=== PATIENT | female | born 1955 | race African-American/Black ===

== ENCOUNTER → 2017-03-07 | Outpatient (CLI) | payer OTHER ==
[2017-03-07 11:50] LABS: HEMATOCRIT 46.4 % (36.0-47.0); HEMOGLOBIN 15.2 g/dL (12.0-15.5); HGB HCT DIFFERENCE -0.8; MEAN CORPUSCULAR HEMOGLOBIN 30.2 pg (27.0-33.4); MEAN CORPUSCULAR HGB CONC 32.9 g/dL (32.0-36.0); MEAN CORPUSCULAR VOLUME 92 fl (80-97); RED BLOOD COUNT 5.05 10^6/uL (3.72-5.28); RED CELL DISTRIBUTION WIDTH 13.3 % (11.5-14.0); WHITE BLOOD COUNT 4.8 10^3/uL (4.0-10.5)
[2017-03-07 12:18] LABS: ALANINE AMINOTRANSFERASE 14 U/L (9-52); ALKALINE PHOSPHATASE 93 U/L (38-126); ANION GAP 11 (5-19); ASPARTATE AMINO TRANSFERASE 17 U/L (14-36); BILIRUBIN,DIRECT 0.3 mg/dL (0.0-0.4); BILIRUBIN,TOTAL 0.5 mg/dL (0.2-1.3); BLOOD UREA NITROGEN 11 mg/dL (7-20); CALCIUM 10.1 mg/dL (8.4-10.2); CARBON DIOXIDE 24 mmol/L (22-30); CHLORIDE 106 mmol/L (98-107); CREATININE RESULT 0.73 mg/dL (0.52-1.25); GLUCOSE 108 mg/dL (75-110); POTASSIUM 4.7 mmol/L (3.6-5.0); SODIUM 141.3 mmol/L (137-145)
--- NOTE | 2017-03-07 16:19 | EKG REPORT ---
SEVERITY:- BORDERLINE ECG - SINUS RHYTHM LOW VOLTAGE IN FRONTAL LEADS CONSIDER INFERIOR INFARCT : Confirmed by: Laina Rosario MD 07-Mar-2017 16:18:13
[2017-03-10 12:40] LABS: EPSTEIN BARR EARLY AG IGG AB <9.0 U/mL (0.0-8.9)
== END ==
LOC: OD 10:30
PROVIDERS: ATTEND Obstetrics & Gynecology
DX: R53.83 Other fatigue (principal); R63.4 Abnormal weight loss; Z72.0 Tobacco use; J44.9 Chronic obstructive pulmonary disease, unspecified; Z51.81 Encounter for therapeutic drug level monitoring
CPT/HCPCS: 36415; 80053; 84443; 85027; 86256; 86663; 86664; 86665; 93005; 93010

== ENCOUNTER → 2017-03-26 | Outpatient (CLI) | payer OTHER | LOC: OD 15:25 | PROVIDERS: ATTEND Obstetrics & Gynecology | DX: R53.83 Other fatigue (principal); R94.31 Abnormal electrocardiogram [ECG] [EKG]; I25.2 Old myocardial infarction | CPT/HCPCS: 36415; 83880 ==

== ENCOUNTER 2017-04-23 20:38 | Emergency (ER) | payer OTHER ==
[2017-04-23] MEDS ORDERED: IPRATROPIUM/ALBUTEROL 0.5-2.5 MG/3 ML AMPUL NEB ONE (20:53)
--- NOTE | 2017-04-23 20:58 | ER Document Report ---
ED Respiratory Problem - General Chief Complaint: Shortness Of Breath Stated Complaint: DIFFICULTY BREATHING Time Seen by Provider: 04/23/17 20:48 Notes: The patient is a 61-year-old female, past medical history COPD, asthma, presents with several hours of worsening shortness of breath that started after she exited a store today. She tried her albuterol inhaler without much relief of her symptoms. She called 911 and received 125 mg Solu-Medrol, a DuoNeb and an albuterol inhaler with some relief of her symptoms. She is still short of breath on arrival to the emergency room. She denies leg swelling, nausea, vomiting, chest pain, fevers, back pain, headache or abdominal pain. TRAVEL OUTSIDE OF THE [place] IN LAST 30 DAYS: No - Related Data Allergies/Adverse Reactions: No Known Allergies Allergy (Verified 02/17/14 08:27) Past Medical History - General Information source: Patient - Social History Smoking Status: Current Every Day Smoker Family History: Reviewed & Not Pertinent - Past Medical History Cardiac Medical History: Reports: Hx Atrial Fibrillation Pulmonary Medical History: Reports: Hx Asthma, Hx Bronchitis, Hx COPD, Hx Pneumonia GI Medical History: Reports: Hx Gastroesophageal Reflux Disease - resolved after fundoplication Psychiatric Medical History: Reports: Hx Depression Past Surgical History: Reports: Hx Bowel Surgery - Megan fundoplication, Hx Gynecologic Surgery - fibroid removal - Immunizations Hx Diphtheria, Pertussis, Tetanus Vaccination: Yes Review of Systems - Review of Systems Notes: REVIEW OF SYSTEMS: CONSTITUTIONAL: -fevers, -chills EENT: -eye pain, -difficulty swallowing, -nasal congestion CARDIOVASCULAR:-chest pain, -syncope. RESPIRATORY: +cough, +SOB GASTROINTESTINAL: -abdominal pain, - nausea, -vomiting, -diarrhea GENITOURINARY: -dysuria, -hematuria MUSCULOSKELETAL: -back pain, -neck pain SKIN: -rash or skin lesions. HEMATOLOGIC: -easy bruising or bleeding. LYMPHATIC: -swollen, enlarged glands. NEUROLOGICAL: -altered mental status or loss of consciousness, -headache, - neurologic symptoms PSYCHIATRIC: -anxiety, -depression. ALL OTHER SYSTEMS REVIEWED AND NEGATIVE. Physical Exam - Vital signs Vitals: Resp Pulse Ox 24 H 99 04/23/17 20:40 04/23/17 20:40 - Notes Notes: PHYSICAL EXAMINATION: GENERAL: Well-appearing, well-nourished and in no acute distress. HEAD: Atraumatic, normocephalic. EYES: Pupils equal round and reactive to light, extraocular movements intact, sclera anicteric, conjunctiva are normal. ENT: nares patent, oropharynx clear without exudates. Moist mucous membranes. NECK: Normal range of motion, supple without lymphadenopathy LUNGS: Bilateral wheezing, tachypnea HEART: Tachycardia, regular rhythm ABDOMEN: Soft, nontender, normoactive bowel sounds. No guarding, no rebound. No masses appreciated. EXTREMITIES: Normal range of motion, no pitting or edema. No cyanosis. NEUROLOGICAL: Cranial nerves grossly intact. Normal speech, normal gait. Normal sensory and motor exams. PSYCH: Normal mood, normal affect. SKIN: Warm, Dry, normal turgor, no rashes or lesions noted. Tachypnea, Course - Re-evaluation Re-evalutation: Patient with COPD exacerbation. After DuoNeb and steroids, patient feels much better. CTA ordered due to tachycardia and slight hypoxia. It did not show any evidence of pulmonary embolism. Patient knows about her thyroid nodule/ mass and will talk to her primary care physician about further evaluation and treatment. Patient ambulating around ER with oxygen saturation at 88%. She does not wear oxygen at home. She does not feel short of breath when she ambulates. The 88% may be normal for her due to her long-standing emphysema. Offered patient admission for further evaluation and treatment, but she would like to be discharged home with follow-up at her primary care physician tomorrow. She understands risks of leaving, including heart attack, or worsening respiratory failure. She is competent to make her own decisions. She has albuterol nebules at home, but is requesting a refill of her albuterol inhaler. We will also provide her with 5 more days of prednisone and instructed patient to return immediately to the emergency room if she has any worsening shortness of breath or any other concerns. - Vital Signs Vital signs: Temp Pulse Resp BP Pulse Ox 97.6 F 113 H 20 130/87 H 88 L 04/23/17 20:50 04/23/17 20:50 04/24/17 01:30 04/24/17 01:30 04/24/17 01:30 - Laboratory Result Diagrams: 04/23/17 21:05 04/23/17 22:53 Laboratory results interpreted by me: 04/23/17 04/23/17 21:05 22:53 Hgb 15.8 H Seg Neutrophils % 37.2 L Lymphocytes % 47.7 H Glucose 134 H - Diagnostic Test Radiology reviewed: Image reviewed, Reports reviewed Radiology results interpreted by me: CXR: NAD - EKG Interpretation by Me EKG shows normal: Sinus rhythm Rate: Tachycardia [place]/QRS: IVCD When compared to previous EKG there are: No significant change Discharge - Discharge Clinical Impression: COPD exacerbation Condition: Stable Disposition: AGAINST MEDICAL ADVICE Additional Instructions: UPPER RESPIRATORY ILLNESS: You have a viral infection of the respiratory passages -- a "cold." This common infection causes nasal congestion, drainage, and often sore throat and cough. It is highly contagious. The disease usually lasts about 10 to 14 days. There is no "cure" for the viral infection -- it must run its course. If there is a complication, such as bacterial infection in the nose, sinuses, middle ear, or bronchial tubes, antibiotics may be required. The antibiotics won't affect the virus. Drink plenty of fluids. A humidifier may help. An expectorant medication or decongestant may make you more comfortable. Use acetaminophen or ibuprofen for fever or aches. See the doctor if fever persists over two days, if there is any significant worsening of your symptoms, or if you simply fail to improve as expected. BRONCHOSPASM: You have tightness in the bronchial tubes, called bronchospasm. This often occurs with bronchial infections. Allergies, inhaled chemicals, and polluted or cold air can also provoke bronchospasm. It's more likely in patients with asthma in the family. Emergency treatment of bronchospasm may include adrenaline shots or bronchodilator aerosol. You may feel lightheaded and have a rapid pulse for an hour or two. Rest and get plenty of fluids. At home, we'll treat you with a bronchodilator inhaler. Antibiotics and corticosteroids may be required for some patients. Until you recover, avoid chemical fumes, dusts, pollens, and exercising in very cold or dry air. If you smoke, stop now!! If you develop a fever, increased wheezing, chest pain, or severe shortness of breath, you should contact the doctor immediately. INHALED BRONCHODILATORS: You have received a treatment of and/or prescription for an inhaled bronchodilator -- a medication which stimulates the airways in the lung to dilate. This improves the flow of air in asthma, bronchitis, and emphysema. These medicines have some similarity to adrenaline, and can cause similar side effects: shakiness, racing heart, and a sense of nervousness. These side effects decrease with time. Contact your doctor if these side effects are severe. Do not over-use the medicine. Too-frequent use of the inhaler may make it ineffective. Call your doctor if the inhaler is not controlling your symptoms at the prescribed doses. STEROID MEDICATION: You have been given an injection of or oral medicine of the cortisone/ steroid class. This medication is used to control inflammation or allergy. Horace t is usually only given for a short period of time, until the acute process subsides. There are usually no side effects from short-term use of cortisone-like medications. Some persons feel an increased sense of well-being and are not sleepy at bedtime. Long-term use of cortisone medications is best avoided, unless required for a severe condition. If your condition does not remit, or relapses after the course of corticosteroid medication, you should consult your physician. USE OF ACETAMINOPHEN (Tylenol): Acetaminophen may be taken for pain relief or fever control. It's much safer than aspirin, offering a wider range of "safe" dosages. It is safe during . Some brand names are Tylenol, Panadol, Datril, Anacin 3, Tempra, and Liquiprin. Acetaminophen can be repeated every four hours. The following are maximum recommended dosages: >89 pounds or adults 650 mg to 900 mg Acetaminophen can be repeated every four hours. Maximum dose not to exceed 4000 mg a day. SMOKING: If you smoke, you should stop smoking. The tar and chemicals in cigarette smoke are harmful. Smoking has been shown to cause: emphysema chronic bronchitis lung cancer mouth and throat cancer stomach and pancreas cancer premature aging defects In addition, smoking increases ear and lung infections in children of smokers. FOLLOW-UP CARE: If you have been referred to a physician for follow-up care, call the physician s office for an appointment as you were instructed or within the next two days. If you experience worsening or a significant change in your symptoms, notify the physician immediately or return to the Emergency Department at any time for re-evaluation. Prescriptions: Albuterol Sulfate [Proair HFA Inhalation Aerosol 8.5 gm MDI] 2 puff IH Q4H PRN # 1 mdi PRN Reason: Prednisone [Deltasone 20 mg Tablet] 3 tab PO DAILY 5 Days Forms: Return to Work
--- NOTE | 2017-04-23 21:28 | RADIOLOGY REPORT (SQ) ---
EXAM DESCRIPTION: CHEST SINGLE VIEW COMPLETED DATE/TIME: 04/23/2017 9:13 pm REASON FOR STUDY: SOB COMPARISON: 06/30/2016 EXAM PARAMETERS: NUMBER OF VIEWS: One view. TECHNIQUE: Single frontal radiographic view of the chest acquired. RADIATION DOSE: NA LIMITATIONS: None. FINDINGS: LUNGS AND PLEURA: No opacities, masses or pneumothorax. No pleural effusion. MEDIASTINUM AND HILAR STRUCTURES: No masses. Contour normal. HEART AND VASCULAR STRUCTURES: Heart normal in size. Normal vasculature. BONES: No acute findings. HARDWARE: None in the chest. OTHER: No other significant finding. IMPRESSION: NO ACUTE RADIOGRAPHIC FINDING IN THE CHEST. TECHNICAL DOCUMENTATION: JOB ID: [id number]
[2017-04-23 21:31] LABS: ABSOLUTE BASOPHILS # (AUTO) 0.1 10^3/uL (0.0-0.2); ABSOLUTE EOSINOPHILS # (AUTO) 0.2 10^3/uL (0.0-0.6); ABSOLUTE LYMPHOCYTES (AUTO) 2.9 10^3/uL (0.5-4.7); ABSOLUTE MONOCYTES (AUTO) 0.6 10^3/uL (0.1-1.4); ABSOLUTE NEUT (AUTO) 2.2 10^3/uL (1.7-8.2); BASOPHILS % (AUTO) 1.4 % (0-2); EOSINOPHILS % (AUTO) 3.7 % (0-6); HEMOGLOBIN 15.8 g/dL (12.0-15.5); HGB HCT DIFFERENCE 0.4; LYMPHOCYTES % (AUTO) 47.7 % (13-45); MEAN CORPUSCULAR HEMOGLOBIN 30.8 pg (27.0-33.4); MEAN CORPUSCULAR HGB CONC 33.6 g/dL (32.0-36.0); MEAN CORPUSCULAR VOLUME 92 fl (80-97); RED BLOOD COUNT 5.13 10^6/uL (3.72-5.28); RED CELL DISTRIBUTION WIDTH 13.6 % (11.5-14.0); SEGMENTED NEUTROPHILS % (AUTO) 37.2 % (42-78)
[2017-04-23 22:21] LABS: VENOUS BLOOD BASE EXCESS 1.6 mmol/L; VENOUS BLOOD HCO3 27.2 mmol/L (20-32); VENOUS BLOOD PCO2 46.5 mmHg (35-63); VENOUS BLOOD PH 7.39 (7.30-7.42)
[2017-04-23] MEDS ORDERED: NORMAL SALINE 1000 ML 1,000 ML IV ONE (22:23)
[2017-04-23 23:31] LABS: ALANINE AMINOTRANSFERASE 21 U/L (9-52); ALKALINE PHOSPHATASE 105 U/L (38-126); ANION GAP 11 (5-19); ASPARTATE AMINO TRANSFERASE 15 U/L (14-36); BILIRUBIN,DIRECT 0.3 mg/dL (0.0-0.4); BILIRUBIN,TOTAL 0.3 mg/dL (0.2-1.3); BLOOD UREA NITROGEN 10 mg/dL (7-20); CALCIUM 9.9 mg/dL (8.4-10.2); CARBON DIOXIDE 24 mmol/L (22-30); CHLORIDE 107 mmol/L (98-107); CREATINE KINASE 90 U/L (30-135); CREATININE RESULT 0.78 mg/dL (0.52-1.25); GLUCOSE 134 mg/dL (75-110); LIPASE 46.7 U/L (23-300); SODIUM 142.3 mmol/L (137-145); TOTAL PROTEIN 7.3 g/dL (6.3-8.2)
[2017-04-23 23:45] LABS: TROPONIN I < 0.012 ng/mL
--- NOTE | 2017-04-24 00:49 | RADIOLOGY REPORT (SQ) ---
EXAM DESCRIPTION: CTA CHEST COMPLETED DATE/TIME: 04/24/2017 12:31 am REASON FOR STUDY: SOB, tachycardia, abnormal EKG COMPARISON: Chest x-ray 04/23/2017, CT chest 03/24/2015. TECHNIQUE: CT scan of the chest performed using helical scanning technique with dynamic intravenous contrast injection. Images reviewed with lung, soft tissue and bone windows. Reconstructed coronal and sagittal MPR images reviewed. Additional 3 dimensional post-processing performed to develop Maximal Intensity Projection images (TN P). All images stored on PACS. All CT scanners at this facility use dose modulation, iterative reconstruction, and/or weight based d osing when appropriate to reduce radiation dose to as low as reasonably achievable (ALARA). [facility]: Dose Right [facility]: CareDose [facility]: Dose Right [facility]: Teradose 4D [facility]: sendwithus CONTRAST TYPE AND DOSE: contrast/concentration: Isovue 370.00 mg/ml; Total Contrast Delivered: 100.0 ml; Total Saline Delivered: 45.0 ml RENAL FUNCTION: Creatinine 0.78 RADIATION DOSE: Up-to-date CT equipment and radiation dose reduction techniques were employed. CTDIv ol: 14.3 mGy. DLP: 495 mGy-cm. . LIMITATIONS: There is motion artifact. FINDINGS: LUNGS AND PLEURA: Emphysematous changes are noted. No consolidation, pleural effusion pne umothorax. AORTA AND GREAT VESSELS: No thoracic aortic aneurysm or dissection. HEART: No pericardial effusion. PULMONARY ARTERIES: No emboli visualized in the main pulmonary arteries or the segmental branches. HILAR AND MEDIASTINAL STRUCTURES: No identified masses or abnormal nodes. HARDWARE: None in the chest. UPPER ABDOMEN: Surgical clips at the GE junction. No acute findings. Limited exam. THYROID AND OTHER SOFT TISSUES: There is a 1.4 x 0.8 cm hypodense nodule at the right thyroid lobe. BONES: No acute osseous findings. 3D MIPS: Confirm above findings. IMPRESSION: No CT evidence for pulmonary emboli. Emphysema. 1.4 x 0.8 cm hypodense nodule at the right thyroid lobe. This can be better evaluated with dedicated thyroid ultrasound. TECHNICAL DOCUMENTATION: JOB ID: [id number] [facility] Quality ID # [id number]: Final reports with documentation of one or more dose reduction techniques (e.g., Au tomated exposure control, adjustment of the mA and/or kV according to patient size, use of iterative reconstruction technique) 2010 [employer]- All Rights Reserved
[2017-04-24] MEDS ORDERED: ALBUTEROL SULFATE 0.083% NEB 2.5 MG/3 ML AMPUL NEB ONE (01:15)
[2017-04-24 01:57] VITALS: BP 130/87
--- NOTE | 2017-04-24 12:48 | EKG REPORT ---
SEVERITY:- ABNORMAL ECG - SINUS OR ECTOPIC ATRIAL TACHYCARDIA NONSPECIFIC IVCD WITH LAD INFERIOR INFARCT, OLD LATERAL INFARCT, AGE INDETERMINATE ABNRM R PROG, CONSIDER ASMI OR LEAD PLACEMENT : Confirmed by: Laina Rosario MD 24-Apr-2017 12:47:00
== END 2017-04-24 01:58 | disposition left against medical advice (07) ==
LOC: ER 20:38
DX: J44.1 Chronic obstructive pulmonary disease with (acute) exacerbation (principal); R00.0 Tachycardia, unspecified; R09.02 Hypoxemia; I45.9 Conduction disorder, unspecified; E04.1 Nontoxic single thyroid nodule; R06.02 Shortness of breath; R05 Cough; F17.200 Nicotine dependence, unspecified, uncomplicated; Z87.01 Personal history of pneumonia (recurrent)
CPT/HCPCS: 93005; 99285; 36415; 82550; 83690; 85025; 80053; 84484; 82803; 83605; 83880; 71010; 71275; 93010; J7030; J7620

== ENCOUNTER → 2017-05-07 | Outpatient (CLI) | payer OTHER ==
--- NOTE | 2017-05-07 16:17 | XCELERA REPORT ---
[address] [address] Lower Extremity Arterial Evaluation Name: LUDWIN LIPSCOMB Age: 61 yrs Gender: Female : 1955 Patient Status: Outpatient Patient Location: Study Date: 05/07/2017 03:19 PM Procedure: A color flow and duplex scan of the lower extremity arteries was performed bilaterally with velocity and waveform anaylsis. Ankle brachial indicies performed. 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 0 % stenosis noted. Ankle Brachial index is 1.04. Left Side Arterial Evaluation Normal velocity and triphasic waveforms noted from the Common Femoral artery to the infregeniculate vessels. 0 % stenosis noted. Ankle Brachial index is 1.06. Interpretation Summary No hemodynamically significant lesions in the bilateral lower extremities, on duplex imaging, at rest. : DANIELLE ELIZABETH > Chung Fajardo
== END ==
LOC: SP 15:02
PROVIDERS: ATTEND Internal Medicine Cardiovascular Disease
DX: I73.9 Peripheral vascular disease, unspecified (principal)
CPT/HCPCS: 93925

== ENCOUNTER → 2017-05-07 | Outpatient (CLI) | payer OTHER ==
[2017-05-07 12:33] LABS: ABSOLUTE BASOPHILS # (AUTO) 0.1 10^3/uL (0.0-0.2); ABSOLUTE EOSINOPHILS # (AUTO) 0.2 10^3/uL (0.0-0.6); ABSOLUTE LYMPHOCYTES (AUTO) 1.9 10^3/uL (0.5-4.7); ABSOLUTE MONOCYTES (AUTO) 0.5 10^3/uL (0.1-1.4); ABSOLUTE NEUT (AUTO) 2.5 10^3/uL (1.7-8.2); BASOPHILS % (AUTO) 1.1 % (0-2); EOSINOPHILS % (AUTO) 3.8 % (0-6); HEMATOCRIT 45.1 % (36.0-47.0); HEMOGLOBIN 15.2 g/dL (12.0-15.5); HGB HCT DIFFERENCE 0.5; LYMPHOCYTES % (AUTO) 36.7 % (13-45); MEAN CORPUSCULAR HGB CONC 33.8 g/dL (32.0-36.0); MEAN CORPUSCULAR VOLUME 92 fl (80-97); MONOCYTES % (AUTO) 9.1 % (3-13); RED CELL DISTRIBUTION WIDTH 13.5 % (11.5-14.0); SEGMENTED NEUTROPHILS % (AUTO) 49.3 % (42-78); WHITE BLOOD COUNT 5.1 10^3/uL (4.0-10.5)
[2017-05-07 13:06] LABS: ALANINE AMINOTRANSFERASE 16 U/L (9-52); ALBUMIN 4.1 g/dL (3.5-5.0); ALKALINE PHOSPHATASE 93 U/L (38-126); ANION GAP 11 (5-19); ASPARTATE AMINO TRANSFERASE 18 U/L (14-36); BILIRUBIN,DIRECT 0.3 mg/dL (0.0-0.4); BILIRUBIN,TOTAL 0.5 mg/dL (0.2-1.3); BLOOD UREA NITROGEN 9 mg/dL (7-20); CALCIUM 9.9 mg/dL (8.4-10.2); CARBON DIOXIDE 25 mmol/L (22-30); CHLORIDE 107 mmol/L (98-107); GLUCOSE 92 mg/dL (75-110); POTASSIUM 4.6 mmol/L (3.6-5.0); TOTAL PROTEIN 7.3 g/dL (6.3-8.2)
[2017-05-07 13:24] LABS: FREE T3 4.46 pg/mL (2.77-5.27)
[2017-05-07 13:37] LABS: CARCINOEMBRYONIC ANTIGEN 4.8 ng/mL (<3.0)
[2017-05-07 13:38] LABS: THYROID STIMULATING HORMONE 0.39 uIU/mL (0.47-4.68)
== END ==
LOC: OD 11:22
PROVIDERS: ATTEND Surgery
DX: D12.6 Benign neoplasm of colon, unspecified (principal); E04.1 Nontoxic single thyroid nodule; R63.4 Abnormal weight loss
CPT/HCPCS: 36415; 80053; 82378; 84439; 84443; 84481; 85025

== ENCOUNTER → 2017-05-09 | Outpatient (CLI) | payer OTHER ==
--- NOTE | 2017-05-09 18:25 | RADIOLOGY REPORT (SQ) ---
EXAM DESCRIPTION: U/S THYROID/SFT TISS HD NECK COMPLETED DATE/TIME: 05/09/2017 5:20 pm REASON FOR STUDY: NONTOXIC SINGLE THYROID NODULE, ABNORMAL WEIGHT LOSS E04.1 NONTOXIC SINGLE THYROI D NODULE COMPARISON: None. TECHNIQUE: Dynamic and static biswas-scale images acquired of the thyroid gland. Selected additional c olor/power Doppler images recorded. All images stored to PACS. LIMITATIONS: None. FINDINGS: RIGHT LOBE: Normal size, 3.9 x 1.9 x 2.5 cm. Homogeneous echotexture. There is complex n odule in the midportion of the right lobe measuring 11 x 9 x 11 mm. Multiple smaller nodules are pre sent in the right lobe. LEFT LOBE: Normal size, 3.9 x 1.6 x 1.6 cm. Homogeneous echotexture. Multiple small hypoechoic nodu les are present. ISTHMUS: Normal size, 2.9 mm. Homogeneous echotexture. No cystic or solid masses. OTHER: No other significant finding. IMPRESSION: Multinodular goiter. TECHNICAL DOCUMENTATION: JOB ID: [id number] [employer]- All Rights Reserved
== END ==
LOC: RAD 16:20
PROVIDERS: ATTEND Surgery
DX: E04.1 Nontoxic single thyroid nodule (principal); R63.4 Abnormal weight loss
CPT/HCPCS: 76536

== ENCOUNTER → 2017-05-11 | Outpatient (CLI) | payer OTHER ==
--- NOTE | 2017-05-11 11:01 | RADIOLOGY REPORT (SQ) ---
EXAM DESCRIPTION: CT ABDOMEN WITH IV ORAL CONT COMPLETED DATE/TIME: 05/11/2017 9:33 am REASON FOR STUDY: COLON POLYP, WEIGHT LOSS D12.6 BENIGN NEOPLASM OF COLON, UNSPECIFIED R63.4 ABNOR MAL WEIGHT LOSS COMPARISON: None. TECHNIQUE: CT scan of the abdomen performed with intravenous and with oral contrast using helical sc anning technique with dynamic intravenous contrast injection. Images reviewed with lung, soft tissue, and bone windows. Reconstructed coronal and sagittal MPR images reviewed. Delayed images for evaluat ion of the urinary system also acquired and evaluated. All images stored on PACS. All CT scanners at this facility use dose modulation, iterative reconstruc tion, and/or weight based dosing when appropriate to reduce radiation dose to as low as reasonably ac hievable (ALARA). [facility]: Dose Right [facility]: CareDose [facility]: Dose Right [facility]: Teradose 4D [facility]: e(ye)BRAIN CONTRAST TYPE AND DOSE: contrast/concentration: Isovue 370.00 mg/ml; Total Contrast Delivered: 66.0 ml; Total Saline Delivered: 65.0 ml RENAL FUNCTION: Creatinine 0.7 BUN 9 RADIATION DOSE: Up-to-date CT equipment and radiation dose reduction techniques were employed. CTDIv ol: 3.8 - 4.5 mGy. DLP: 268 mGy-cm. . LIMITATIONS: None. FINDINGS: LOWER CHEST: No significant findings. No nodules or infiltrates. LIVER: Normal size. No masses. No dilated ducts. SPLEEN: Normal size. No focal lesions. PANCREAS: No masses. No significant calcifications. No adjacent inflammation or peripancreatic fluid collections. Pancreatic duct not dilated. GALLBLADDER: No identified stones by CT criteria. No inflammatory changes to suggest cholecystitis. ADRENAL GLANDS: No significant masses or asymmetry. RIGHT KIDNEY AND URETER: No solid masses. No significant calcifications. No hydronephrosis or hyd roureter. LEFT KIDNEY AND URETER: No solid masses. No significant calcifications. No hydronephrosis or hydr oureter. AORTA AND VESSELS: No aneurysm. No dissection. Renal arteries, SMA, celiac without stenosis. Mild at herosclerosis. RETROPERITONEUM: No retroperitoneal adenopathy, hemorrhage or masses. BOWEL AND PERITONEAL CAVITY: There appears to be focal thickening of the wall of the colon just above the cecum. It is possible that this represents adherent stool appear APPENDIX: Not identified. ABDOMINAL WALL: No masses. No hernias. BONES: No significant or acute findings. OTHER: No other significant finding. IMPRESSION: Possible mass or polyp in the colon just above the cecum. No other abnormality is appre ciated. TECHNICAL DOCUMENTATION: JOB ID: [id number] Quality ID # [id number]: Final reports with documentation of one or more dose reduction techniques (e.g., Au tomated exposure control, adjustment of the mA and/or kV according to patient size, use of iterative reconstruction technique) 2010 [employer]- All Rights Reserved
== END ==
LOC: RAD 08:27
PROVIDERS: ATTEND Surgery
DX: D12.6 Benign neoplasm of colon, unspecified (principal); R63.4 Abnormal weight loss
CPT/HCPCS: 74160

== ENCOUNTER 2017-05-18 08:18 | Inpatient (IN) | payer OTHER ==
[~2017-05-18 08:18] MED LIST: BUPIVACAINE HCL 0.25 % INJ/PF (2.5 MG/1 ML) 30 ML VIAL ONE; ERTAPENEM SODIUM 1 GM in NORMAL SALINE 50 ML IV PRN; GLYCOPYRROLATE INJ 0.4 MG/2 ML VIAL ONE; KETOROLAC TROMETHAMINE 60 MG/2 ML SDV ONE; LACTATED RINGERS 1000 ML IV PRN; LIDOCAINE 0.5% INJ-PF (5 MG/ML) 50 ML SDV SUBCUT PRN; LIDOCAINE 2% INJ-PF (20 MG/ML) 10 ML AMPUL ONE; ONDANSETRON HCL INJ/PF 4 MG/2 ML SDV ONE; ROCURONIUM BROMIDE INJ 50 MG/5 ML VIAL IV ONE; SUCCINYLCHOLINE CHLORIDE INJ 200 MG/10 ML VIAL ONE
[2017-05-18] MEDS ORDERED: ALBUTEROL SULFATE 0.083% NEB 2.5 MG/3 ML AMPUL NEB ONE (09:55)
[2017-05-18] MEDS ORDERED: FENTANYL CITRATE INJ/PF 100 MCG/2 ML AMPUL ONE ×2 (10:17)
[2017-05-18] MEDS ORDERED: FENTANYL CITRATE INJ/PF 250 MCG/5 ML AMPULE ONE (10:17)
[2017-05-18] MEDS ORDERED: MIDAZOLAM 2 MG/2 ML INJ ONE (10:17)
[2017-05-18] MEDS ORDERED: PROPOFOL INJ 200 MG/20 ML VIAL IV ONE (10:18)
[2017-05-18] MEDS ORDERED: MORPHINE SULFATE 10 MG/ML INJ ONE (10:18)
[2017-05-18] MEDS ORDERED: ACETAMINOPHEN 100 ML IV ONE (10:18)
[2017-05-18] MEDS ORDERED: DIPHENHYDRAMINE HCL 50 MG/ML VIAL IV PRN (12:20)
[2017-05-18] MEDS ORDERED: PROMETHAZINE HCL INJ 25 MG/1 ML VIAL IV PRN ×2 (12:20)
[2017-05-18] MEDS ORDERED: MEPERIDINE HCL/PF INJ 25 MG/1 ML DISP.SYRIN IV PRN (12:20)
[2017-05-18] MEDS ORDERED: MORPHINE SULFATE 10 MG/ML INJ IV PRN (12:20)
[2017-05-18] MEDS ORDERED: FENTANYL CITRATE INJ/PF 100 MCG/2 ML AMPUL IV PRN ×3 (12:20)
[2017-05-18] MEDS ORDERED: OXYCODONE-ACETAMINOPHEN 5-325 MG TABLET PO PRN ×2 (12:20)
[2017-05-18] MEDS ORDERED: GLUCAGON,HUMAN RECOMB 1 MG INJ SUBCUT PRN (13:19)
[2017-05-18] MEDS ORDERED: NORMAL SALINE 1000 ML 1,000 ML IV PRN (13:19)
[2017-05-18] MEDS ORDERED: DEXTROSE 40% GEL 15 GM TUBE NG PRN ×2 (13:19)
[2017-05-18] MEDS ORDERED: ONDANSETRON HCL INJ/PF 4 MG/2 ML SDV IV PRN (13:19)
[2017-05-18] MEDS ORDERED: DEXTROSE 50%-WATER 25 GM/50 ML DISP.SYRIN IV PRN ×2 (13:19)
--- NOTE | 2017-05-18 13:19 | Operative Report ---
Operative Report DATE OF SURGERY: 05/18/17 PREOPERATIVE DIAGNOSIS: right colon polyp POSTOPERATIVE DIAGNOSIS: Right colon polyp, spigelian hernia. OPERATION: Right hemicolectomy. Spigelian hernia repair. SURGEON: AKI KONG ANESTHESIA: GA TISSUE REMOVED OR ALTERED: Right colon COMPLICATIONS: None ESTIMATED BLOOD LOSS: 100 cc INTRAOPERATIVE FINDINGS: Large mass in the right mid colon. Spigelian hernia with herniation of the appendix on the right side. PROCEDURE: Informed consent was obtained. Patient was brought to the operating room and placed on the operating room table in the supine position. After satisfactory induction of general anesthesia patient's abdomen was prepped and draped in usual sterile fashion. A midline abdominal incision was made dissection carried out through the fascia and the peritoneal cavity entered without difficulty. A wound protractor was used during the case. Exploratory laparotomy was performed first. The liver felt smooth with no masses. Anterior surface of the stomach felt smooth. There were some adhesions of the stomach to the anterior abdominal wall consistent with her prior ulcer surgeries. These adhesions were left alone. The gallbladder appeared normal. The uterus and the ovaries were palpable and they felt normal. The small bowel appeared normal. The right colon had a Clarissa ink marking at the midportion with palpable mass. The appendix was adhered to the anterior right abdominal wall. Otherwise the anterior abdominal wall felt normal. In tracing the appendix became very apparent that the appendix was herniating through a spigelian hernia on the right side. The spigelian hernia defect had to be widened to allow exposure of the appendiceal tip which extended deep into the abdominal wall. A counter incision on the skin had to be made at the right abdomen to allow exposure. The appendix tip was clearly identified dissected away from the abdominal wall. At the end of the case the spigelian hernia defect was closed with interrupted PDS sutures. The right colon was mobilized and the hepatic flexure was completely taken down. The duodenum was identified and protected during the dissection as well as the right ureter. The transverse colon just right of midline was divided using a MADONNA stapling device. The middle colic artery was identified and preserved. The marginal vessel was identified and taken with the LigaSure device. The transverse colon end had an excellent blood supply with visible pulsations in the mesentery. The ileocolic artery was identified and traced down to its origin and taken close to its origin by clamping dividing and tying. This allowed a complete mesenteric excision of the right colon. The terminal ileum was divided about 10 cm away from the ileocecal junction using a MADONNA stapling device. The specimen was sent to pathology and pathology confirmed that indeed the large mass in the right colon had been removed with good margins. Ileocolic anastomosis was then created between the terminal ileum and the transverse colon in a [id number] functional end-to-end fashion using a MADONNA stapling device. The enterotomies made to introduce the stapling device was closed with a TA stapling device. The mesenteric defect was very large and was left open. The anastomosis appeared secure and well vascularized. Hemostasis appeared to be good. Sponge needle and instrument counts were all correct. The midline fascial defect was closed with running PDS suture. Skin was closed with myriam. Marcaine was injected at the incision sites. Patient tolerated procedure well with no apparent complications and was taken to the recovery area in stable condition.
[2017-05-18] MEDS ORDERED: ALBUTEROL SULFATE 0.083% NEB 2.5 MG/3 ML AMPUL NEB PRN (13:26)
[2017-05-18] MEDS ORDERED: ALBUTEROL SULFATE HFA (90 MCG/PUFF) 200 PUFF/8.5 GM MDI IH PRN (13:26)
[2017-05-18] MEDS ORDERED: PHARMACY COMMUNICATION ORDER MC NR (13:30)
[2017-05-18] MEDS ORDERED: HYDROCORTISONE SOD SUCCINATE INJ/PF 100 MG/2 ML SDV IV ONE (14:00)
--- NOTE | 2017-05-18 14:49 | PDOC PROGRESS REPORT ---
Subjective Progress Note for:: 05/18/17 Subjective:: Drowsy but easily arousable. No distress. Physical Exam Vital Signs: Temp Pulse Resp BP Pulse Ox 98.2 F 136 H 18 166/100 H 95 05/18/17 13:10 05/18/17 13:10 05/18/17 13:10 05/18/17 13:10 05/18/17 13:10 Intake & Output 05/17/17 05/18/17 05/19/17 06:59 06:59 06:59 Intake Total 5150 Output Total 2100 Balance 3050 Weight 61.23 kg General appearance: PRESENT: no acute distress, cooperative Respiratory exam: PRESENT: clear to auscultation mick Cardiovascular exam: PRESENT: RRR GI/Abdominal exam: PRESENT: other - Soft, nondistended, appropriate tenderness. Extremities exam: PRESENT: other - No swelling. Assessment & Plan - Diagnosis (1) Colon polyp Qualifiers: Colon location: ascending Is this a current diagnosis for this admission?: Yes Plan: Status post right hemicolectomy and spigelian hernia repair. Patient looks good postoperatively. Was noted with tachycardia in the operating room prior to incision and tachycardia postoperatively, currently resolved. Patient with thyroid goiter. Patient may benefit from a beta-dany however she has significant asthma issues. Will consult hospitalist for their input. She has required steroids in the past. I will place her on low-dose stress steroids in the immediate postoperative period. Await bowel function. If NG output is minimal will DC NG tube tomorrow. Encourage ambulation.
[2017-05-18] MEDS ORDERED: (PENDING PHARMACY ID) (Tiotropium Bromide [Spiriva Respimat] 4 GM) IH SCH (18:00)
[2017-05-18] MEDS ORDERED: NICOTINE 14 MG/24 HR PATCH.TD24 TD PRN (18:42)
[2017-05-18] MEDS: MORPHINE SULFATE 10 MG/ML INJ IV PRN (19:21)
--- NOTE | 2017-05-18 19:47 | CONSULTATION REPORT E ---
Consultation Report NAME: LUDWIN LIPSCOMB : 1955 AGE: 61Y DATE: 05/18/2017 534 A TO: MIGUEL ANDRADE M.D. FROM: KARL KONG M.D. Requesting Physician REASON FOR CONSULTATION: Asthma/COPD and hyperthyroidism. HISTORY OF PRESENT ILLNESS: The patient is a 61-year-old -[place] female with a history of COPD, anxiety, peripheral vascular disease, who presented to the hospital for a right hemicolectomy and appendectomy due to a right colonic mass. Please see Dr. Kong's note and H and P for the indications for this procedure. The patient reports that Sunday was the end of a small steroid taper that she had taken for an asthma exacerbation. She reports that she does not normally take steroids daily, however, has had 2 short courses of steroids within the last month. PAST MEDICAL HISTORY: The patient's past medical history is significant for: 1. COPD. 2. Questionable history of peripheral vascular disease. 3. Anxiety. 4. And a thyroid nodule. PAST SURGICAL HISTORY: Peptic ulcer disease about 26 years ago. SOCIAL HISTORY: The patient smokes a little less than a pack per day for many years. Denies alcohol. Denies illicit drugs. FAMILY HISTORY: Her mother of kidney cancer. There is a family history of diabetes mellitus, and her father's history is unknown. ALLERGIES: The patient's no known drug allergies. HOME MEDICATIONS: Include: 1. Albuterol. 2. BREO. 3. Spiriva. 4. And the patient recently completed a short course of prednisone. CODE STATUS: She is a FULL CODE. Her sonHudson is her surrogate decision maker. Her primary care physician is Dr. Mccoy. Her surgeon is Dr. Kong. REVIEW OF SYSTEMS: CONSTITUTIONAL: The patient denies fevers, chills, weight gain, anorexia. Admits to weight loss, about 25 pounds over the last year. HEENT: Denies visual disturbance, headache, hearing loss. RESPIRATORY: Admits to occasional dyspnea. Denies cough, hemoptysis, pleurisy. CARDIAC: Denies chest pain, PND, orthopnea, edema. ABDOMEN: Admits currently to abdominal pain, however, she just had recent abdominal surgery. GENITOURINARY: Denies dysuria, urgency, frequency, hematuria. SKIN: Denies rashes or wounds. MUSCULOSKELETAL: Denies joint pain, swelling. NEUROLOGIC: Denies weakness, numbness, dizziness, dysphagia, dysarthria, ataxia. ENDOCRINE: Denies polyuria, polydipsia, hot or cold intolerance. PSYCHIATRIC: Denies depression. Admits to some anxiety. Denies hallucination or delusion. HEMATOLOGY: Denies easy bleeding or bruising. PHYSICAL EXAMINATION: VITAL SIGNS: Temperature is 98.5, pulse is 94, blood pressure of 129/82, respiratory rate of 16, and saturation of 98 on 2 liters nasal cannula. GENERAL: The patient appears well. She is in no acute distress. She is slightly lethargic but easily arousable after surgery. HEENT: She is normocephalic. She has no icterus. Her conjunctivae are clear. Her extraocular eye movements are intact. Her pupils are equal, round, and reactive to light and accommodation. She has moist mucous membranes. NECK: Her trachea is midline. She does have a right-sided thyromegaly with palpable nodules. RESPIRATORY: Clear to auscultation bilaterally without wheezes, rhonchi, or rales. She does have a prolonged expiratory phase. CARDIOVASCULAR: Regular rate and rhythm without appreciable murmur, rub, or gallop. ABDOMEN: She does have a midline incision that is covered with waffle dressing with sanguinous drainage. The patient is diffusely tender. Absent bowel sounds. RECTAL: Deferred. GENITOURINARY: Deferred. EXTREMITIES: Reveal no edema, cyanosis, or clubbing. MUSCULOSKELETAL: Reveals no joint swelling or deformity. VASCULAR: Reveals normal peripheral pulses. NEUROLOGIC: She is alert and oriented to person, place, and time. Her speech is normal. Cranial nerves are grossly intact. Her strength is equal in all extremities, and tactile sensation in all extremities. SKIN: Reveals no rashes, wounds, or worrisome skin lesions. PSYCHIATRIC: She has a normal mood and affect. LABORATORY VALUES: Most recent laboratory values are from 05/07/2017 and reveal a white count of 5.1, hemoglobin of 15.2, hematocrit of 45.1, and platelets of 277,000; a CEA of 4.8; a TSH of 0.39, a free T4 of 1.39, and a free T3 of 4.46; a creatinine of 0.7 and a potassium of 4.6. Thyroid ultrasound done on 05/09/2017 reveals a multinodular goiter with a complex nodule in the midportion of the right lobe measuring 11 x 9 x 11 mm and multiple smaller nodules present in the left lobe and the left lobe has small hypoechoic nodules present. The patient's CT of the abdomen done on 05/11/2017 reveals a possible mass or polyp in the colon just above the cecum. IMPRESSION: This is a 61-year-old -[place]namese female with: 1. Status post right hemicolectomy and appendectomy for colonic mass. 2. Subclinical hyperthyroidism, likely secondary to multinodular goiter versus toxic adenoma. 3. COPD. 4. Tobacco abuse. INPATIENT MEDICATIONS: 1. Albuterol. 2. Ertapenem 1 gram preoperatively. 3. Hydrocortisone 50 mg IV q.12. 4. LR 150 mL IV. 5. Morphine 3 mg IV q.3 p.r.n. 6. Zofran 4 mg IV q.4 p.r.n. 7. Spiriva. 8. BREO. 9. Normal saline at 120 mL per hour. PLAN: 1. For patient's asthma/COPD, at this time I do not feel that this patient is likely steroid dependent nor does it sound that way from listing to her. Ultimately though I defer the use of corticosteroids to her surgeon. We will place p.r.n. albuterol and do recommend that patient continue her own BREO. Continue Spiriva. Incentive spirometry and early mobilization. 2. For her colonic mass, abdominal surgery, and/or all problems and/or issues relating to this, I defer to her excellent primary surgeon. 3. For her tobacco abuse, I strongly recommend that she does stop smoking, and we will place a p.r.n. nicotine patch. 4. For her thyroid nodule, it appears that the patient is already engaged in an outpatient workup of this. The patient has undergone ultrasound of the thyroid as well as testing which does seem to indicate some clinical hyperthyroidism. Whether this is the result of her multinodular goiter or a toxic adenoma at this time is yet to be known. I do recommend that this patient undergo bone density testing as an outpatient and have a repeat TSH and free T3 and free T4 within the next 6 weeks. Ultimately, patient should have a radioactive uptake scan of her thyroid to determine if these nodules are indeed active. At this time, I feel that this workup can be deferred to on an outpatient basis. The patient does admit to some weight loss and occasional palpitations, but no other signs of overt hyperthyroidism at this time. We appreciate this most interesting consult, and we will continue to follow this patient. Please note that we deferred DVT prophylaxis other than SCDs which are currently in place to the prerogative of the attending surgeon. DICTATING PHYSICIAN: MIGUEL ANDRADE M.D. [id number] PHY#: [id number] ID: [id number] JOB#: [id number] ACCT: [id number] cc:MIGUEL ANDRADE M.D. >
[2017-05-18] MEDS: HYDROCORTISONE SOD SUCCINATE INJ/PF 100 MG/2 ML SDV IV SCH (21:44)
[2017-05-19] MEDS: MORPHINE SULFATE 10 MG/ML INJ IV PRN ×3 (05:06→20:57)
[2017-05-19 06:49] LABS: HEMATOCRIT 36.9 % (36.0-47.0); HEMOGLOBIN 12.4 g/dL (12.0-15.5); HGB HCT DIFFERENCE 0.3; MEAN CORPUSCULAR HEMOGLOBIN 30.8 pg (27.0-33.4); MEAN CORPUSCULAR HGB CONC 33.5 g/dL (32.0-36.0); MEAN CORPUSCULAR VOLUME 92 fl (80-97); RED BLOOD COUNT 4.01 10^6/uL (3.72-5.28); RED CELL DISTRIBUTION WIDTH 13.6 % (11.5-14.0); WHITE BLOOD COUNT 11.8 10^3/uL (4.0-10.5)
[2017-05-19 07:04] LABS: BLOOD UREA NITROGEN 7 mg/dL (7-20); CHLORIDE 106 mmol/L (98-107); GLUCOSE 100 mg/dL (75-110)
[2017-05-19 07:15] LABS: CARBON DIOXIDE 24 mmol/L (22-30); POTASSIUM 4.5 mmol/L (3.6-5.0)
[2017-05-19 07:19] LABS: ANION GAP 3 (5-19)
--- NOTE | 2017-05-19 08:31 | PDOC PROGRESS REPORT ---
Subjective Progress Note for:: 05/19/17 Subjective:: feels ok. Physical Exam Vital Signs: Temp Pulse Resp BP Pulse Ox 98.6 F 97 16 126/76 H 99 05/19/17 07:48 05/19/17 07:48 05/19/17 07:48 05/19/17 07:48 05/19/17 07:48 Intake & Output 05/18/17 05/19/17 05/20/17 06:59 06:59 06:59 Intake Total 5550 Output Total 3355 Balance 2195 Weight 61.23 kg 64 kg General appearance: PRESENT: no acute distress, cooperative Respiratory exam: PRESENT: clear to auscultation mick Cardiovascular exam: PRESENT: RRR GI/Abdominal exam: PRESENT: other - soft, non distended, appropriate tenderness. ng output bile tinged Extremities exam: PRESENT: other - no swelling. Results Laboratory Results: 05/19/17 05:35 05/19/17 05:35 05/19/17 05/19/17 05:35 05:35 WBC 11.8 H RBC 4.01 Hgb 12.4 Hct 36.9 MCV 92 MCH 30.8 MCHC 33.5 RDW 13.6 Plt Count 235 Sodium 133.0 L Potassium 4.5 Chloride 106 Carbon Dioxide 24 Anion Gap 3 L BUN 7 Creatinine 0.60 Est GFR ( Amer) > 60 Est GFR (Non-Af Amer) > 60 Glucose 100 Calcium 9.0 Assessment & Plan - Diagnosis (1) Colon polyp Qualifiers: Colon location: ascending Is this a current diagnosis for this admission?: Yes Plan: Status post right hemicolectomy and spigelian hernia repair. Patient looks good postoperatively. good urine output and hemodynamically stable. hct decreased likely due to hemodilution but will hold lovenox. repeat cbc tomorrow. ambulate. await bowel function.
[2017-05-19] MEDS ORDERED: (PENDING PHARMACY ID) (Fluticasone/Vilanterol [Breo Ellipta 100-25 Mcg Inh] 1 PUFF) IN SCH (10:00)
[2017-05-19] MEDS: HYDROCORTISONE SOD SUCCINATE INJ/PF 100 MG/2 ML SDV IV SCH ×2 (12:07→21:00)
[2017-05-19] MEDS: Fluticasone/Vilanterol [Breo Ellipta 100-25 Mcg Inh IH SCH (12:07)
[2017-05-19] MEDS: TIOTROPIUM BROMIDE DPI 5 CAP/KIT (18 MCG/CAP) IH SCH (12:07)
[2017-05-19] MEDS ORDERED: PHENOL/SODIUM PHENOLATE 100 SPRAY/177 ML BOTTLE PO PRN (12:56)
--- NOTE | 2017-05-19 13:09 | PDOC PROGRESS REPORT ---
Subjective Progress Note for:: 05/19/17 Subjective:: Patient complains of sore throat. Patient is yet to pass flatus. She complains of nausea and abdominal pain. Patient has dark NG aspirate tinged with blood. Physical Exam Vital Signs: Temp Pulse Resp BP Pulse Ox 97.9 F 91 18 130/71 H 97 05/19/17 12:00 05/19/17 12:00 05/19/17 12:00 05/19/17 12:00 05/19/17 12:00 Intake & Output 05/18/17 05/19/17 05/20/17 06:59 06:59 06:59 Intake Total 5550 Output Total 3355 Balance 2195 Weight 61.23 kg 64 kg Exam: General: Awake alert and oriented x3, no acute respiratory distress HEENT: AT/NC, PERRL, EOMI, oropharynx is moist, pink, no scleral icterus, no conjunctival injection, NG right nares Neck: No JVD, trachea midline Chest: Prolonged expiratory phase, Clear to auscultation bilaterally, no wheezes rhonchi or rales CV: Regular rate and rhythm, normal S1 and S2, no murmur, rub, or gallop Abdomen: Soft, appropriately, diffusely tender to palpation, nondistended, absent bowel sounds; no rebound, rigidity, or guarding Extremities: No cyanosis, clubbing or edema Neuro: Cranial nerves II through XII are grossly intact without focal deficits; awake alert and oriented x3 Psych: Normal mood and affect Skin: no rashes or lesions Results Laboratory Results: 05/19/17 05:35 05/19/17 05:35 05/19/17 05/19/17 05:35 05:35 WBC 11.8 H RBC 4.01 Hgb 12.4 Hct 36.9 MCV 92 MCH 30.8 MCHC 33.5 RDW 13.6 Plt Count 235 Sodium 133.0 L Potassium 4.5 Chloride 106 Carbon Dioxide 24 Anion Gap 3 L BUN 7 Creatinine 0.60 Est GFR ( Amer) > 60 Est GFR (Non-Af Amer) > 60 Glucose 100 Calcium 9.0 Assessment & Plan - Diagnosis (1) Colonic mass Is this a current diagnosis for this admission?: Yes Plan: patient is s/p partial colectomy for this Defer this and all issues relating to the diagnosis, management and treatment of this and its complications, if any, to the primary sugical team (2) COPD (chronic obstructive pulmonary disease) Qualifiers: COPD type: emphysema Emphysema type: unspecified Qualified Code(s): J43.9 - Emphysema, unspecified Is this a current diagnosis for this admission?: Yes Plan: Currently well controlled Continue home Breo, spiriva, prn albuterol Currently receiving stress dose steroids, but defer to surgery to stop these as patient does not report chronic prednisone usage, but only intermittent use of corticosteroids (3) Thyroid nodule Is this a current diagnosis for this admission?: Yes Plan: Advise repeating thyroid function tests in 4 weeks. Patient should have radioactive iodine uptake test to see if these nodules are hot or cold. This can be done as an outpatient. No need for intervention at this time. 05/07/17 11:40 TSH 0.39 L Free T4 1.39 Free T3 pg/mL 4.46 (4) Subclinical hyperthyroidism Is this a current diagnosis for this admission?: Yes Plan: Advise repeating these in 4 weeks. Patient should have radioactive iodine uptake test to see if these nodules are hot or cold. This can be done as an outpatient. No need for intervention at this time. 05/07/17 11:40 TSH 0.39 L Free T4 1.39 Free T3 pg/mL 4.46 (5) Anxiety Is this a current diagnosis for this admission?: Yes Plan: Currently well controlled (6) Tobacco dependence Is this a current diagnosis for this admission?: Yes Plan: Advise cessation Offered nicotine replacement Generic Name Dose Route Start Last Admin Trade Name Freq PRN Reason Stop Dose Admin Nicotine 1 each 05/18/17 18:42 Nicoderm 14 Mg/24 Hr Transdermal Patch TD 06/17/17 18:41 DAILYP PRN - Time Time Spent with patient: 25-34 minutes Medications reviewed and adjusted accordingly: Yes Anticipated discharge: Home - Plan Summary Plan Summary: At this time, agree with the excellent management of the primary surgeon and will sign off as medicine is not providing any additional care to patient. We are available at any time for reconsultation on this patient. Thank you kindly for this consult.
[2017-05-20] MEDS: NORMAL SALINE 1000 ML 1,000 ML IV PRN ×2 (00:03→20:19)
[2017-05-20 06:04] LABS: HEMATOCRIT 35.5 % (36.0-47.0); HEMOGLOBIN 12.1 g/dL (12.0-15.5); HGB HCT DIFFERENCE 0.8; MEAN CORPUSCULAR HGB CONC 34.1 g/dL (32.0-36.0); MEAN CORPUSCULAR VOLUME 91 fl (80-97); RED CELL DISTRIBUTION WIDTH 13.9 % (11.5-14.0); WHITE BLOOD COUNT 7.9 10^3/uL (4.0-10.5)
[2017-05-20 06:23] LABS: ANION GAP 5 (5-19); BLOOD UREA NITROGEN 8 mg/dL (7-20); CALCIUM 9.2 mg/dL (8.4-10.2); CARBON DIOXIDE 25 mmol/L (22-30); CHLORIDE 108 mmol/L (98-107); CREATININE RESULT 0.53 mg/dL (0.52-1.25); GLUCOSE 96 mg/dL (75-110); SODIUM 137.9 mmol/L (137-145)
[2017-05-20] MEDS: TIOTROPIUM BROMIDE DPI 5 CAP/KIT (18 MCG/CAP) IH SCH (10:06)
[2017-05-20] MEDS: Fluticasone/Vilanterol [Breo Ellipta 100-25 Mcg Inh IH SCH (10:06)
[2017-05-20] MEDS: MORPHINE SULFATE 10 MG/ML INJ IV PRN ×2 (10:06→20:36)
[2017-05-20] MEDS: HYDROCORTISONE SOD SUCCINATE INJ/PF 100 MG/2 ML SDV IV SCH ×2 (10:07→21:31)
--- NOTE | 2017-05-20 15:37 | PDOC PROGRESS REPORT ---
Subjective Progress Note for:: 05/20/17 Subjective:: patient is comfortable, denies flatus or stools, and reports minimal incisional pain Physical Exam Vital Signs: Temp Pulse Resp BP Pulse Ox 98.1 F 82 16 130/81 H 96 05/20/17 12:00 05/20/17 12:30 05/20/17 12:30 05/20/17 12:00 05/20/17 12:30 Intake & Output 05/19/17 05/20/17 05/21/17 06:59 06:59 06:59 Intake Total 5550 4200 0 Output Total 3355 1520 1400 Balance 2195 2680 -1400 Weight 64 kg 64 kg Respiratory exam: PRESENT: clear to auscultation mick Cardiovascular exam: PRESENT: RRR GI/Abdominal exam: PRESENT: hypoactive bowel sounds, soft, other - wound c/d/i Results Laboratory Results: 05/20/17 05:28 05/20/17 05:28 05/20/17 05/20/17 05:28 05:28 WBC 7.9 RBC 3.90 Hgb 12.1 Hct 35.5 L MCV 91 MCH 31.0 MCHC 34.1 RDW 13.9 Plt Count 227 Sodium 137.9 Potassium 4.0 Chloride 108 H Carbon Dioxide 25 Anion Gap 5 BUN 8 Creatinine 0.53 Est GFR ( Amer) > 60 Est GFR (Non-Af Amer) > 60 Glucose 96 Calcium 9.2 Assessment & Plan - Diagnosis (2) Colonic mass Is this a current diagnosis for this admission?: Yes - Plan Summary Plan Summary: A/ POD#3 after righe hemicolectomy, repair of right Spigelian hernia and incidental appendectomy patient comfortable, denies bowel function VSS, AF blood work unremarkable PE shows a soft abdomen with clean wound P/ Continue NPO IVF until bowel function returns Continue NGT suction IV steroids and Lovenox as per Dr. Booker
[2017-05-21] MEDS: MORPHINE SULFATE 10 MG/ML INJ IV PRN ×3 (09:58→20:38)
[2017-05-21] MEDS: Fluticasone/Vilanterol [Breo Ellipta 100-25 Mcg Inh IH SCH (09:58)
[2017-05-21] MEDS: TIOTROPIUM BROMIDE DPI 5 CAP/KIT (18 MCG/CAP) IH SCH (09:58)
[2017-05-21] MEDS ORDERED: HYDROCORTISONE SOD SUCCINATE INJ/PF 100 MG/2 ML SDV IV SCH (10:00)
[2017-05-21] MEDS ORDERED: ONDANSETRON HCL INJ/PF 4 MG/2 ML SDV IV PRN (10:30)
[2017-05-21] MEDS: ENOXAPARIN SODIUM INJ 40 MG/0.4 ML DISP.SYRIN SUBCUT SCH (11:13)
--- NOTE | 2017-05-21 16:06 | PDOC PROGRESS REPORT ---
Subjective Progress Note for:: 05/21/17 Subjective:: feels well. passing flatus Physical Exam Vital Signs: Temp Pulse Resp BP Pulse Ox 98.2 F 93 18 124/88 H 95 05/21/17 15:29 05/21/17 15:29 05/21/17 15:29 05/21/17 15:29 05/21/17 15:29 Intake & Output 05/20/17 05/21/17 05/22/17 06:59 06:59 06:59 Intake Total 4200 1250 300 Output Total 1520 2300 Balance 2680 -1050 300 Weight 64 kg 59.6 kg General appearance: PRESENT: no acute distress, cooperative Respiratory exam: PRESENT: clear to auscultation mick Cardiovascular exam: PRESENT: RRR GI/Abdominal exam: PRESENT: normal bowel sounds, soft - nondistended, minimal tenderness Extremities exam: PRESENT: other - no swelling Results Laboratory Results: 05/20/17 05:28 05/20/17 05:28 Assessment & Plan - Diagnosis (1) Colon polyp Qualifiers: Colon location: ascending Is this a current diagnosis for this admission?: Yes Plan: Status post right hemicolectomy and spigelian hernia repair. Patient looks good postoperatively. d/c romario d/c pita.
[2017-05-21] MEDS: NORMAL SALINE 1000 ML 1,000 ML IV PRN (16:43)
--- NOTE | 2017-05-22 09:17 | PDOC PROGRESS REPORT ---
Subjective Progress Note for:: 05/22/17 Subjective:: Feels well. Passing flatus. Hungry. Physical Exam Vital Signs: Temp Pulse Resp BP Pulse Ox 98.5 F 81 16 125/74 97 05/22/17 00:06 05/22/17 00:06 05/22/17 00:06 05/22/17 00:06 05/22/17 00:06 Intake & Output 05/21/17 05/22/17 05/23/17 06:59 06:59 06:59 Intake Total 1250 2579 100 Output Total 2300 2300 Balance -1050 279 100 Weight 59.6 kg 61.7 kg General appearance: PRESENT: no acute distress, cooperative - Block phone number Respiratory exam: PRESENT: chest wall tenderness Cardiovascular exam: PRESENT: RRR - Achillis is GI/Abdominal exam: PRESENT: other - Soft, nondistended, active bowel sounds, minimal tenderness. Extremities exam: PRESENT: other - No swelling. Results Laboratory Results: 05/20/17 05:28 05/20/17 05:28 Assessment & Plan - Diagnosis (1) Colon polyp Qualifiers: Colon location: ascending Is this a current diagnosis for this admission?: Yes Plan: Status post right hemicolectomy and spigelian hernia repair. Patient looks good postoperatively. Start diet.
[2017-05-22] MEDS: Fluticasone/Vilanterol [Breo Ellipta 100-25 Mcg Inh IH SCH (09:36)
[2017-05-22] MEDS: TIOTROPIUM BROMIDE DPI 5 CAP/KIT (18 MCG/CAP) IH SCH (09:37)
[2017-05-22] MEDS: ENOXAPARIN SODIUM INJ 40 MG/0.4 ML DISP.SYRIN SUBCUT SCH (09:37)
[2017-05-22] MEDS: MORPHINE SULFATE 10 MG/ML INJ IV PRN (10:18)
[2017-05-22] MEDS: OXYCODONE-ACETAMINOPHEN 5-325 MG TABLET PO PRN ×2 (16:54→23:27)
--- NOTE | 2017-05-23 08:41 | PDOC PROGRESS REPORT ---
Subjective Progress Note for:: 05/23/17 Subjective:: Feels well. Tolerating diet well. Passing gas. Wants to go home. Physical Exam Vital Signs: Temp Pulse Resp BP Pulse Ox 98.4 F 79 18 127/86 H 100 05/23/17 07:34 05/23/17 07:34 05/23/17 07:34 05/23/17 07:34 05/23/17 07:34 Intake & Output 05/22/17 05/23/17 05/24/17 06:59 06:59 06:59 Intake Total 2579 1630 Output Total 2300 1650 Balance 279 -20 Weight 61.7 kg 59.5 kg General appearance: PRESENT: no acute distress, cooperative Respiratory exam: PRESENT: clear to auscultation mick Cardiovascular exam: PRESENT: RRR GI/Abdominal exam: PRESENT: other - Soft, nondistended, nontender to palpation. Wound clean dry and intact. Extremities exam: PRESENT: other - Non-tender and no swelling Results Laboratory Results: 05/20/17 05:28 05/20/17 05:28 Assessment & Plan - Diagnosis (1) Colon polyp Qualifiers: Colon polyp type: adenomatous Colon location: ascending Qualified Code(s) : D12.2 - Benign neoplasm of ascending colon Is this a current diagnosis for this admission?: Yes Plan: Status post right hemicolectomy and spigelian hernia repair. Doing well. Tolerating diet well. Will discharge patient home.
--- NOTE | 2017-05-23 08:51 | DISCHARGE SUMMARY E ---
Discharge Summary NAME: LUDWIN LIPSCOMB : 1955 AGE: 61Y ADMITTED: 05/18/2017 DISCHARGED: 05/23/2017 DISCHARGE DIAGNOSES: 1. Tubulovillous adenoma of the right colon. 2. Spigelian hernia 3. Hyperthyroidism. PROCEDURE PERFORMED DURING HOSPITALIZATION: Right hemicolectomy with spigelian hernia repair performed by Dr. Karl Kong on 05/18/2017. HOSPITAL COURSE: Patient underwent the above-mentioned procedure. She did well postoperatively. She had gradual resumption of bowel function. She was noted with tachycardia preoperatively as well as immediately postoperatively that may have been attributable to hyperthyroidism. Remainder of her hospital stay she had stable vital signs. Patient has now been discharged to home in good condition. She will follow up with me this Sunday for staple removal. She may resume her home medications. Additionally medications are Percocet 1 p.o. every 4 hours p.r.n. pain and Colace 100 mg p.o. b.i.d. I will have her refer to Endocrinology for her hyperthyroidism and will also refer her to Dr. Wilkinson for her thyroid nodule. She is encouraged to stay active at home. She may follow a regular diet at home. DICTATING PHYSICIAN: KARL KONG M.D. [id number] Y#: [id number] ID: [id number] JOB#: [id number] ACCT: [id number] cc:KARL KONG M.D. >
[2017-05-23] MEDS: Fluticasone/Vilanterol [Breo Ellipta 100-25 Mcg Inh IH SCH (09:20)
[2017-05-23] MEDS: TIOTROPIUM BROMIDE DPI 5 CAP/KIT (18 MCG/CAP) IH SCH (09:21)
[2017-05-23] MEDS: ENOXAPARIN SODIUM INJ 40 MG/0.4 ML DISP.SYRIN SUBCUT SCH (09:29)
[2017-05-23] MEDS: OXYCODONE-ACETAMINOPHEN 5-325 MG TABLET PO PRN (09:29)
[2017-05-23 09:34] VITALS: BP 107/63
== END 2017-05-23 10:05 | disposition home or self-care (01) | DRG 331 ==
LOC: INOR 08:18 → 5 14:43
PROVIDERS: ADMIT Surgery; ATTEND Surgery
PROC: 0WQF0ZZ Repair Abdominal Wall, Open Approach (ICD-10-PCS; 2017-05-18)
PROC: 0DTJ0ZZ Resection of Appendix, Open Approach (ICD-10-PCS; 2017-05-18)
PROC: 0DTF0ZZ Resection of Right Large Intestine, Open Approach (ICD-10-PCS; principal; 2017-05-18 10:30)
DX: D12.2 Benign neoplasm of ascending colon (principal); K43.9 Ventral hernia without obstruction or gangrene; E04.1 Nontoxic single thyroid nodule; J45.909 Unspecified asthma, uncomplicated; J43.9 Emphysema, unspecified; F41.9 Anxiety disorder, unspecified; F32.9 Major depressive disorder, single episode, unspecified; F17.210 Nicotine dependence, cigarettes, uncomplicated; Z87.11 Personal history of peptic ulcer disease
CPT/HCPCS: 36415; 790; 80048; 85027; 88307; 94640; 94799; 88329; J0131; J0330; J1335; J1650; J1720; J1885; J2250; J2270; J2405; J2704; J3010; J3490; J7030

== ENCOUNTER → 2017-07-16 | Outpatient (CLI) | payer OTHER ==
[2017-07-16 18:54] LABS: FREE T3 3.72 pg/mL (2.77-5.27)
[2017-07-16 19:07] LABS: THYROID STIMULATING HORMONE 0.15 uIU/mL (0.47-4.68)
== END ==
LOC: OD 17:07
PROVIDERS: ATTEND Surgery
DX: E04.1 Nontoxic single thyroid nodule (principal)
CPT/HCPCS: 36415; 84439; 84443; 84481

== ENCOUNTER 2017-09-06 00:31 | Emergency (ER) | payer OTHER ==
[2017-09-06] MEDS ORDERED: ALBUTEROL SULFATE 0.083% NEB 2.5 MG/3 ML AMPUL NEB ONE (00:38)
[2017-09-06] MEDS ORDERED: IPRATROPIUM/ALBUTEROL 0.5-2.5 MG/3 ML AMPUL NEB ONE (00:38)
[2017-09-06] MEDS ORDERED: METHYLPREDNISOLONE INJ 125 MG/2 ML SDV IV ONE (00:39)
[2017-09-06] MEDS ORDERED: NORMAL SALINE 1000 ML 1,000 ML IV ONE (00:39)
--- NOTE | 2017-09-06 00:45 | ER Document Report ---
ED General - General Stated Complaint: SHORTNESS OF BREATH Time Seen by Provider: 09/06/17 00:36 Cannot obtain history due to: Unstable vital signs Notes: Patient is a 62-year-old female with a past medical history of COPD, chronic tobacco dependence, prior admissions to the hospital for her COPD who presents with 2 hours of shortness of breath. Patient reports that she had a relatively rapid onset of severe wheezing, shortness of breath, but denies any associated hemoptysis, cough, sputum production, or chest pain. She states this does feel similar to her prior COPD exacerbations but worse. She did try her albuterol inhaler at home without any improvement. EMS was contacted and brought her to the emergency department. They did provide her one DuoNeb in route. She states that this moderately improved her symptoms but does note that she continues to feel severely short of breath at time of presentation. She states any form of exertion or movement worsens her shortness of breath. She denies any fever or constitutional symptoms. TRAVEL OUTSIDE OF THE [place] IN LAST 30 DAYS: No - Related Data Allergies/Adverse Reactions: No Known Allergies Allergy (Verified 09/06/17 01:30) Past Medical History - General Information source: Patient - Social History Smoking Status: Current Every Day Smoker Frequency of alcohol use: None Drug Abuse: None Lives with: Family Family History: Reviewed & Not Pertinent - Past Medical History Cardiac Medical History: Reports: Hx Atrial Fibrillation Denies: Hx Pulmonary Embolism Pulmonary Medical History: Reports: Hx Asthma, Hx COPD, Hx Pneumonia Denies: Hx Bronchitis, Hx Respiratory Failure, Hx Sleep Apnea, Hx Tuberculosis Endocrine Medical History: Denies: Hx Graves' Disease Renal/ Medical History: Denies: Hx End Stage Renal Disease, Hx Kidney Stones, Hx Ovarian Cysts, Hx Peritoneal Dialysis, Hx Pelvic Inflammatory Disease Malignancy Medical History: Denies: Hx Breast Cancer, Hx Cervical Cancer, Hx Lung Cancer, Hx Ovarian Cancer GI Medical History: Reports: Hx Gastroesophageal Reflux Disease, Hx Ulcer. Denies: Hx Crohn's Disease, Hx Hiatal Hernia, Hx Irritable Bowel, Hx Liver Failure, Hx Pancreatitis Musculoskeltal Medical History: Reports Hx Arthritis - HANDS, Denies Hx Fibromyalgia, Denies Hx Muscular Dystrophy Psychiatric Medical History: Reports: Hx Depression Denies: Hx Bipolar Disorder, Hx Post Traumatic Stress Disorder, Hx Schizophrenia Traumatic Medical History: Denies: Hx Fractures Past Surgical History: Reports: Hx Gynecologic Surgery - fibroid removal, Hx Hysterectomy, Hx Tubal Ligation. Denies: Hx Appendectomy, Hx Bowel Surgery, Hx Section, Hx Cholecystectomy, Hx Colostomy, Hx Coronary Artery Bypass Graft, Hx Gastric Bypass Surgery, Hx Herniorrhaphy, Hx Mastectomy, Hx Pacemaker , Hx Tonsillectomy - Immunizations Hx Diphtheria, Pertussis, Tetanus Vaccination: Yes Review of Systems - Review of Systems Notes: Constitutional: Negative for fever. HENT: Negative for sore throat. Eyes: Negative for visual changes. Cardiovascular: Negative for chest pain. Respiratory: Positive for shortness of breath. Gastrointestinal: Negative for abdominal pain, vomiting or diarrhea. Genitourinary: Negative for dysuria. Musculoskeletal: Negative for back pain. Skin: Negative for rash. Neurological: Negative for headaches, weakness or numbness. 10 point ROS negative except as marked above and in HPI. Physical Exam - Vital signs Vitals: Resp Pulse Ox 16 97 09/05/17 20:06 09/05/17 20:06 Interpretation: Tachycardic, Tachypneic Notes: PHYSICAL EXAMINATION: GENERAL: Ill-appearing, in obvious distress HEAD: Atraumatic, normocephalic. EYES: Pupils equal round and reactive to light, extraocular movements intact, sclera anicteric, conjunctiva are normal. ENT: nares patent, oropharynx clear without exudates. Moderately dry mucous membranes. NECK: Normal range of motion, supple without lymphadenopathy LUNGS: Poor air movement in all lung banda. Prolonged expiratory wheezing. Unable to speak in more than 2-3 words per sentence. Breathing approximately 36 times per minute HEART: Regular tachycardia without murmurs ABDOMEN: Soft, nontender, normoactive bowel sounds. No guarding, no rebound. No masses appreciated. EXTREMITIES: Normal range of motion, no pitting or edema. No cyanosis. NEUROLOGICAL: No focal neurological deficits. Moves all extremities spontaneously and on command. PSYCH: Normal mood, normal affect. SKIN: Warm, Dry, normal turgor, no rashes or lesions noted. Course - Re-evaluation Re-evalutation: 09/06/17 00:40 Patient presents in moderate to severe respiratory distress, breathing 36 times a minute, very tight air movement throughout, expiratory wheezing although it is quite soft and I expect this is secondary to how tight her air movement is in the first place. She was saturating 91% on room air at time of arrival. Immediate upon arrival patient was started on continuous albuterol and ipratropium nebulizers, and IV was established, Solu-Medrol and 2 g of magnesium will be administered. IV fluids will be initiated. Will obtain labs and chest x-ray. If patient is not clinically improving within 15-20 minutes on continuous nebulizers will transition to BiPAP. She is critical at this time given her difficulty breathing and will require frequent reassessments. 09/06/17 01:19 Patient does have some improved airway movement but remains tight, tachypneic. She continues to only be able to say 2-3 words per sentence. Will transition to bipap. 09/06/17 02:20 Patient is much improved on BiPAP. Air movement much improved. Resting calmly in bed, breathing 18 times per minute. At this time, a discussed with the patient my plan to admit her to the hospital and she immediately declined stating that she cannot be admitted as she has a son at home with down syndrome that she needs to care for. The patient has chosen to leave the facility against medical advice. The relevant issues have been reviewed and discussed with the patient and family at the bedside. At the time of this assessment there is no indication for involuntary commitment. The patient is alert, oriented, and able to express clearly their reasoning for not wanting to remain in the emergency department for further treatment. The patient is not clinically psychotic, intoxicated, and denies and suicidal ideation. Differential or suspected diagnoses based on medical screening exam: Severe COPD exacerbation requiring positive pressure ventilation The patient is aware of the concerning diagnoses and acknowledges understanding of the reasons for the following recommendations: Admission to the hospital for continued positive pressure ventilation, steroids, continuous nebulizers, monitoring for clinical deterioration The following risks were explained: Worsening COPD exacerbation, respiratory distress, , permanent disability, loss of function Clinical impression: Patient is competent to make decisions regarding the medical that is being offered. - Vital Signs Vital signs: Temp Pulse Resp BP Pulse Ox 17 111/82 100 09/06/17 03:01 09/06/17 03:01 09/06/17 03:01 - Laboratory Result Diagrams: 09/06/17 00:55 09/06/17 00:55 Laboratory results interpreted by me: 09/06/17 09/06/17 00:55 01:10 VBG pH 7.24 L Sodium 146.3 H Chloride 112 H Glucose 111 H - Diagnostic Test Radiology reviewed: Image reviewed, Reports reviewed Radiology results interpreted by me: 09/06/17 02:21 Chest x-ray: No acute infiltrate or pneumothorax. Critical Care Note - Critical Care Note Total time excluding time spent on procedures (mins): 38 Comments: Critical care time spent obtaining history from patient or surrogate, discussions with consultants, development of treatment plan with patient or surrogate, evaluation of patient's response to treatment, examination of patient , ordering and performing treatments and interventions, ordering and review of laboratory studies, re-evaluation of patient's condition, ordering and review of radiographic studies and review of old charts Discharge - Discharge Clinical Impression: Tobacco dependence, Respiratory distress COPD (chronic obstructive pulmonary disease) Qualifiers: COPD type: unspecified COPD Qualified Code(s): J44.9 - Chronic obstructive pulmonary disease, unspecified Condition: Serious Disposition: AGAINST MEDICAL ADVICE Additional Instructions: Your leaving the hospital today AGAINST MEDICAL ADVICE. I have advised you to be hospitalized for a severe COPD exacerbation. We did try to treat your symptoms initially with nebulizer treatments, steroids, and magnesium but this was not successful in adequately managing your work of breathing. You were then placed on BiPAP which did improve your symptoms. However, I am unable to discharge you if your work of breathing is so severe that it requires BiPAP. I have explained to you that I fear you will go home and get much sicker, have worsening of your COPD exacerbation, and may even . You will be sent home with a course of steroids to try to treat your COPD exacerbation as an outpatient. However, I strongly encourage you to return to the emergency department for admission. Prescriptions: Prednisone [Deltasone 20 mg Tablet] 3 tab PO DAILY 5 Days tablet Referrals: BELLA LOZANO MD [Primary Care Provider] - Follow up as needed
[2017-09-06 01:06] LABS: ABSOLUTE BASOPHILS # (AUTO) 0.1 10^3/uL (0.0-0.2); ABSOLUTE EOSINOPHILS # (AUTO) 0.2 10^3/uL (0.0-0.6); ABSOLUTE LYMPHOCYTES (AUTO) 2.8 10^3/uL (0.5-4.7); ABSOLUTE MONOCYTES (AUTO) 0.8 10^3/uL (0.1-1.4); BASOPHILS % (AUTO) 1.4 % (0-2); EOSINOPHILS % (AUTO) 3.4 % (0-6); HEMATOCRIT 43.1 % (36.0-47.0); HEMOGLOBIN 14.6 g/dL (12.0-15.5); HGB HCT DIFFERENCE 0.7; LYMPHOCYTES % (AUTO) 40.3 % (13-45); MEAN CORPUSCULAR HEMOGLOBIN 30.4 pg (27.0-33.4); MEAN CORPUSCULAR HGB CONC 33.9 g/dL (32.0-36.0); MEAN CORPUSCULAR VOLUME 90 fl (80-97); MONOCYTES % (AUTO) 11.2 % (3-13); RED CELL DISTRIBUTION WIDTH 13.5 % (11.5-14.0); SEGMENTED NEUTROPHILS % (AUTO) 43.7 % (42-78); WHITE BLOOD COUNT 6.9 10^3/uL (4.0-10.5)
[2017-09-06] MEDS: MAGNESIUM SULFATE/D5W 1 GM/100 ML RTUPB IV SCH ×2 (01:08→01:59)
[2017-09-06 01:16] LABS: ANION GAP 12 (5-19); BLOOD UREA NITROGEN 8 mg/dL (7-20); CALCIUM 9.4 mg/dL (8.4-10.2); CARBON DIOXIDE 22 mmol/L (22-30); CHLORIDE 112 mmol/L (98-107); CREATININE RESULT 0.65 mg/dL (0.52-1.25); GLUCOSE 111 mg/dL (75-110); SODIUM 146.3 mmol/L (137-145)
--- NOTE | 2017-09-06 01:23 | RADIOLOGY REPORT (SQ) ---
EXAM DESCRIPTION: CHEST SINGLE VIEW CLINICAL HISTORY: 62 years, Female, sob COMPARISON: 04/23/2017. NUMBER OF VIEWS: 1. TECHNIQUE: Frontal view. LIMITATIONS: None. FINDINGS: Moderate emphysematous hyperinflation. Normal cardiac silhouette size. Atherosclerosis. Intact bony thorax. Surgical clips at the expected gastroesophageal junction. Stable. IMPRESSION: No acute cardiopulmonary findings. Chronic emphysematous hyperinflation. 2010 [employer]- All Rights Reserved
[2017-09-06 01:29] LABS: VENOUS BLOOD BASE EXCESS -4.9 mmol/L; VENOUS BLOOD HCO3 23.1 mmol/L (20-32); VENOUS BLOOD PCO2 54.7 mmHg (35-63); VENOUS BLOOD PH 7.24 (7.30-7.42)
[2017-09-06 03:10] VITALS: BP 111/82
== END 2017-09-06 03:17 | disposition left against medical advice (07) ==
LOC: ER 00:31
DX: R06.03 Acute respiratory distress (principal); J44.9 Chronic obstructive pulmonary disease, unspecified; F17.200 Nicotine dependence, unspecified, uncomplicated; I48.91 Unspecified atrial fibrillation; Z90.710 Acquired absence of both cervix and uterus
CPT/HCPCS: 94640 ×2; 99291; 96375; 96365; 96366; 36415; 85025; 80048; 82803; 71010; 94660; J2930; J3475; J7030; J7620

== ENCOUNTER → 2017-11-21 | Outpatient (CLI) | payer OTHER ==
[~2017-11-21] MED LIST changes: +ALBUTEROL SULFATE 0.083% NEB 2.5 MG/3 ML AMPUL NEB ONE; +EPHEDRINE SULFATE INJ 50 MG/1 ML AMPULE ONE; -ERTAPENEM SODIUM 1 GM in NORMAL SALINE 50 ML IV PRN; +FENTANYL/BUPIVACAINE/NS/PF 0 MCG/0 ML RTUINJ EPI ONE; -GLYCOPYRROLATE INJ 0.4 MG/2 ML VIAL ONE; -KETOROLAC TROMETHAMINE 60 MG/2 ML SDV ONE; -LACTATED RINGERS 1000 ML IV PRN; -LIDOCAINE 0.5% INJ-PF (5 MG/ML) 50 ML SDV SUBCUT PRN; +LIDOCAINE 1% INJ-PF (10 MG/ML) 30 ML SDV ONE; -LIDOCAINE 2% INJ-PF (20 MG/ML) 10 ML AMPUL ONE; +MISOPROSTOL 0.2 MG TABLET ONE; -ONDANSETRON HCL INJ/PF 4 MG/2 ML SDV ONE; +OXYTOCIN/NORMAL SALINE 0 UNIT/0 ML RTUINJ ONE; -ROCURONIUM BROMIDE INJ 50 MG/5 ML VIAL IV ONE; -SUCCINYLCHOLINE CHLORIDE INJ 200 MG/10 ML VIAL ONE
--- NOTE | 2017-11-23 13:45 | Pulmonary Function Test ---
Pulmonary Function Test Date of Procedure:: 11/21/17 INDICATION:: Dyspnea Referring Provider: Dr. 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 There is an inference for restrictive ventilatory defect (which may mask the degree of obstruction). If clinically indicated complete PFTs would be advised
== END ==
LOC: RT 08:20
DX: J44.9 Chronic obstructive pulmonary disease, unspecified (principal)
CPT/HCPCS: 94060

== ENCOUNTER → 2018-03-21 | Outpatient (CLI) | payer OTHER ==
[2018-03-21 12:06] LABS: ABSOLUTE EOSINOPHILS # (AUTO) 0.1 10^3/uL (0.0-0.6); ABSOLUTE LYMPHOCYTES (AUTO) 2.2 10^3/uL (0.5-4.7); ABSOLUTE MONOCYTES (AUTO) 0.6 10^3/uL (0.1-1.4); ABSOLUTE NEUT (AUTO) 4.5 10^3/uL (1.7-8.2); BASOPHILS % (AUTO) 0.4 % (0-2); HEMATOCRIT 42.8 % (36.0-47.0); HEMOGLOBIN 14.4 g/dL (12.0-15.5); LYMPHOCYTES % (AUTO) 29.8 % (13-45); MEAN CORPUSCULAR HEMOGLOBIN 30.6 pg (27.0-33.4); MEAN CORPUSCULAR HGB CONC 33.7 g/dL (32.0-36.0); MEAN CORPUSCULAR VOLUME 91 fl (80-97); MONOCYTES % (AUTO) 8.7 % (3-13); PLATELET COUNT 352 10^3/uL (150-450); RED BLOOD COUNT 4.72 10^6/uL (3.72-5.28); RED CELL DISTRIBUTION WIDTH 14.2 % (11.5-14.0); SEGMENTED NEUTROPHILS % (AUTO) 60.1 % (42-78); TOTAL CELLS COUNTED % (AUTO) 100 %; WHITE BLOOD COUNT 7.5 10^3/uL (4.0-10.5)
== END ==
LOC: OD 11:18
PROVIDERS: ATTEND Internal Medicine Critical Care Medicine
DX: J43.9 Emphysema, unspecified (principal); R06.00 Dyspnea, unspecified; J45.50 Severe persistent asthma, uncomplicated; F17.200 Nicotine dependence, unspecified, uncomplicated; R91.8 Other nonspecific abnormal finding of lung field
CPT/HCPCS: 36415; 82785; 85025

== ENCOUNTER 2018-04-09 21:40 | Emergency (ER) | payer OTHER ==
[2018-04-09] MEDS ORDERED: PREDNISONE 20 MG TABLET PO ONE (21:53)
[2018-04-09] MEDS ORDERED: IPRATROPIUM/ALBUTEROL 0.5-2.5 MG/3 ML AMPUL NEB ONE (21:53)
[2018-04-09 22:01] LABS: ABSOLUTE BASOPHILS # (AUTO) 0.1 10^3/uL (0.0-0.2); ABSOLUTE EOSINOPHILS # (AUTO) 0.4 10^3/uL (0.0-0.6); ABSOLUTE LYMPHOCYTES (AUTO) 3.2 10^3/uL (0.5-4.7); ABSOLUTE MONOCYTES (AUTO) 0.8 10^3/uL (0.1-1.4); ABSOLUTE NEUT (AUTO) 2.8 10^3/uL (1.7-8.2); BASOPHILS % (AUTO) 1.8 % (0-2); EOSINOPHILS % (AUTO) 5.9 % (0-6); HEMATOCRIT 43.5 % (36.0-47.0); LYMPHOCYTES % (AUTO) 43.6 % (13-45); MEAN CORPUSCULAR HEMOGLOBIN 31.3 pg (27.0-33.4); MEAN CORPUSCULAR HGB CONC 34.5 g/dL (32.0-36.0); MEAN CORPUSCULAR VOLUME 91 fl (80-97); MONOCYTES % (AUTO) 11.2 % (3-13); PLATELET COUNT 484 10^3/uL (150-450); RED BLOOD COUNT 4.79 10^6/uL (3.72-5.28); RED CELL DISTRIBUTION WIDTH 14.6 % (11.5-14.0); SEGMENTED NEUTROPHILS % (AUTO) 37.5 % (42-78); TOTAL CELLS COUNTED % (AUTO) 100 %; WHITE BLOOD COUNT 7.4 10^3/uL (4.0-10.5)
[2018-04-09] MEDS ORDERED: ALBUTEROL SULFATE 0.083% NEB 2.5 MG/3 ML AMPUL NEB SCH (22:08)
--- NOTE | 2018-04-09 22:18 | ER Document Report ---
ED General - General Chief Complaint: Breathing Difficulty Stated Complaint: BREATHING PROBLEM Time Seen by Provider: 04/09/18 22:10 Mode of Arrival: Medic Information source: Patient Notes: 62-year-old female brought to the emergency department with complaints of difficulty breathing and wheezing. Patient does have a history of COPD. Patient is on a nebulizer at home. Patient states that she saw her family doctor last week for her symptoms and was started on prednisone. She states that she finished the prednisone 2 days ago. Patient's been using the DuoNeb treatments without relief of symptoms. She denies any fever, chills, productive cough, chest pain. Patient states that she still smokes. Patient is not on any oxygen at home. TRAVEL OUTSIDE OF THE [place] IN LAST 30 DAYS: No - HPI Onset: Just prior to arrival Onset/Duration: Gradual Quality of pain: No pain Severity: Moderate Associated symptoms: None Exacerbated by: Denies Relieved by: Denies Similar symptoms previously: Yes Recently seen / treated by doctor: Yes - Related Data Allergies/Adverse Reactions: No Known Allergies Allergy (Verified 09/06/17 01:30) Past Medical History - Social History Smoking Status: Current Every Day Smoker Family History: Reviewed & Not Pertinent - Past Medical History Cardiac Medical History: Reports: Hx Atrial Fibrillation Denies: Hx Pulmonary Embolism Pulmonary Medical History: Reports: Hx Asthma, Hx COPD, Hx Pneumonia Denies: Hx Bronchitis, Hx Respiratory Failure, Hx Sleep Apnea, Hx Tuberculosis Endocrine Medical History: Denies: Hx Graves' Disease Renal/ Medical History: Denies: Hx End Stage Renal Disease, Hx Kidney Stones, Hx Ovarian Cysts, Hx Peritoneal Dialysis, Hx Pelvic Inflammatory Disease Malignancy Medical History: Denies: Hx Breast Cancer, Hx Cervical Cancer, Hx Lung Cancer, Hx Ovarian Cancer GI Medical History: Reports: Hx Gastroesophageal Reflux Disease, Hx Ulcer. Denies: Hx Crohn's Disease, Hx Hiatal Hernia, Hx Irritable Bowel, Hx Liver Failure, Hx Pancreatitis Musculoskeltal Medical History: Reports Hx Arthritis - HANDS, Denies Hx Fibromyalgia, Denies Hx Muscular Dystrophy Psychiatric Medical History: Reports: Hx Depression Denies: Hx Bipolar Disorder, Hx Post Traumatic Stress Disorder, Hx Schizophrenia Traumatic Medical History: Denies: Hx Fractures Past Surgical History: Reports: Hx Gynecologic Surgery - fibroid removal, Hx Hysterectomy, Hx Tubal Ligation. Denies: Hx Appendectomy, Hx Bowel Surgery, Hx Section, Hx Cholecystectomy, Hx Colostomy, Hx Coronary Artery Bypass Graft, Hx Gastric Bypass Surgery, Hx Herniorrhaphy, Hx Mastectomy, Hx Pacemaker , Hx Tonsillectomy - Immunizations Hx Diphtheria, Pertussis, Tetanus Vaccination: Yes Review of Systems - Review of Systems Constitutional: No symptoms reported EENT: No symptoms reported Cardiovascular: No symptoms reported Respiratory: Short of breath, Wheezing Gastrointestinal: No symptoms reported Genitourinary: No symptoms reported Female Genitourinary: No symptoms reported Musculoskeletal: No symptoms reported Skin: No symptoms reported Neurological/Psychological: No symptoms reported -: Yes All other systems reviewed and negative Physical Exam - Vital signs Vitals: Temp Resp Pulse Ox 98.0 F 24 H 98 04/09/18 21:43 04/09/18 21:43 04/09/18 21:43 Interpretation: Normal, Tachycardic, Tachypneic - Notes Notes: PHYSICAL EXAMINATION: GENERAL: Well-appearing, well-nourished and in no acute distress. HEAD: Atraumatic, normocephalic. EYES: Pupils equal round and reactive to light, extraocular movements intact, conjunctiva are normal. ENT: Nares patent, oropharynx clear without exudates. Moist mucous membranes. NECK: Normal range of motion, supple without lymphadenopathy LUNGS: Diffuse wheezing HEART: Tachycardic ABDOMEN: Soft, nontender, nondistended abdomen. No guarding, no rebound. No masses appreciated. Female : deferred Musculoskeletal: Normal range of motion, no pitting or edema. No cyanosis. NEUROLOGICAL: Cranial nerves grossly intact. Normal speech, normal gait. Normal sensory, motor exams PSYCH: Normal mood, normal affect. SKIN: Warm, Dry, normal turgor, no rashes or lesions noted. Course - Re-evaluation Re-evalutation: 04/10/18 02:09 On re-evaluation, Patient wants off the bipap. Says she's feeling better. Patient taken off of BiPAP. Wheezing has significantly reduced. Patient states that she is breathing easier. Discussed admission versus discharge home with the patient. Patient states that she wants to go home. Patient is not on any home oxygen. Patient was not placed on a nasal cannula. Patient's oxygen saturation was monitored in the emergency department on room air. She continues to have an oxygen saturation that ranges from 90-92%. Patient's vital signs are currently blood pressure 110/79, heart rate 96, oxygen saturation 92% on room air, respiratory rate 14. With the patient's history of COPD, her oxygen saturation may be chronically around this value. Tachycardia has resolved. I will discharge the patient home with a prescription for prednisone. She's on nebulizer treatments. Chest xray did not show an acute process. Patient instructed to take the medication prescribed as directed, to follow-up with her primary care physician this week, and to return to the emergency department for any worsening symptoms. Patient is agreeable with the plan of care. - Vital Signs Vital signs: Temp Pulse Resp BP Pulse Ox 98.0 F 18 100/78 96 04/09/18 21:43 04/10/18 00:36 04/10/18 00:36 04/10/18 00:36 - Laboratory Result Diagrams: 04/09/18 21:48 04/09/18 22:50 Laboratory results interpreted by me: 04/09/18 04/09/18 21:48 22:50 RDW 14.6 H Plt Count 484 H Seg Neutrophils % 37.5 L Chloride 109 H Glucose 130 H - EKG Interpretation by Me Additional EKG results interpreted by me: 04/09/18 22:17 EKG: Ventricular rate 122, TN interval 152, QRS duration 68, QTc 433, sinus tachycardia. Discharge - Discharge Clinical Impression: COPD exacerbation Condition: Good Disposition: HOME, SELF-CARE Instructions: Chronic Obstructive Lung Disease ([facility]) Prescriptions: Prednisone [Deltasone 20 mg Tablet] 3 tab PO DAILY 5 Days #15 tablet Referrals: NUBIA GAR MD [Primary Care Provider] - Follow up as needed
--- NOTE | 2018-04-09 22:29 | RADIOLOGY REPORT (SQ) ---
EXAM DESCRIPTION: CHEST SINGLE VIEW COMPLETED DATE/TIME: 04/09/2018 10:02 pm REASON FOR STUDY: difficulty breathing COMPARISON: 09/06/2017 EXAM PARAMETERS: NUMBER OF VIEWS: One view. TECHNIQUE: Single frontal radiographic view of the chest acquired. RADIATION DOSE: NA LIMITATIONS: None. FINDINGS: LUNGS AND PLEURA: Lungs are hyperexpanded. There is no infiltrate or effusion. There is no mass. MEDIASTINUM AND HILAR STRUCTURES: No masses. Contour normal. HEART AND VASCULAR STRUCTURES: Heart normal in size. Normal vasculature. BONES: No acute findings. HARDWARE: None in the chest. OTHER: No other significant finding. IMPRESSION: Chronic lung changes with no acute cardiopulmonary disease. TECHNICAL DOCUMENTATION: JOB ID: [id number] [employer] All Rights Reserved Reading location - IP/workstation name: [email or web address]
[2018-04-09 23:32] LABS: ALANINE AMINOTRANSFERASE 22 U/L (9-52); ALBUMIN 3.8 g/dL (3.5-5.0); ALKALINE PHOSPHATASE 90 U/L (38-126); ANION GAP 10 (5-19); ASPARTATE AMINO TRANSFERASE 15 U/L (14-36); BILIRUBIN,DIRECT 0.3 mg/dL (0.0-0.4); BILIRUBIN,TOTAL 0.4 mg/dL (0.2-1.3); BLOOD UREA NITROGEN 12 mg/dL (7-20); CALCIUM 9.6 mg/dL (8.4-10.2); CARBON DIOXIDE 25 mmol/L (22-30); CHLORIDE 109 mmol/L (98-107); CREATINE KINASE 57 U/L (30-135); GLUCOSE 130 mg/dL (75-110); POTASSIUM 4.1 mmol/L (3.6-5.0); TOTAL PROTEIN 6.8 g/dL (6.3-8.2)
[2018-04-09 23:56] LABS: CREATINE KINASE MB 0.48 ng/mL (<4.55)
[2018-04-10 00:01] LABS: NT PRO BNP < 11 pg/mL (5-900); TROPONIN I < 0.012 ng/mL
[2018-04-10] MEDS ORDERED: NORMAL SALINE 1000 ML 1,000 ML IV ONE (00:11)
[2018-04-10 02:22] VITALS: BP 110/79
--- NOTE | 2018-04-10 21:38 | EKG REPORT ---
SEVERITY:- ABNORMAL ECG - SINUS TACHYCARDIA BUSTER, CONSIDER BIATRIAL ABNORMALITIES LOW VOLTAGE IN FRONTAL LEADS BORDERLINE T ABNORMALITIES, ANT-LAT LEADS : Confirmed by: Laina Rosario MD 10-Apr-2018 21:38:38
== END 2018-04-10 02:50 | disposition home or self-care (01) ==
LOC: ER 21:40
DX: J44.1 Chronic obstructive pulmonary disease with (acute) exacerbation (principal); Z79.899 Other long term (current) drug therapy; R00.0 Tachycardia, unspecified; F17.200 Nicotine dependence, unspecified, uncomplicated
CPT/HCPCS: 93005; 99285; 36415; 82553; 82550; 85025; 80053; 84484; 83880; 71045; 93010; 94660; J7512; J7030; J7620

== ENCOUNTER 2018-04-27 21:39 | Emergency (ER) | payer OTHER ==
[2018-04-27] MEDS: ALBUTEROL SULFATE 0.083% NEB 2.5 MG/3 ML AMPUL NEB SCH ×2 (21:48→22:02)
[2018-04-27] MEDS ORDERED: ALBUTEROL SULFATE 0.083% NEB 2.5 MG/3 ML AMPUL NEB ONE ×2 (21:49→23:13)
[2018-04-27] MEDS ORDERED: METHYLPREDNISOLONE INJ 125 MG/2 ML SDV ONE (21:49)
[2018-04-27] MEDS ORDERED: METHYLPREDNISOLONE INJ 125 MG/2 ML SDV IV ONE (22:06)
[2018-04-27] MEDS ORDERED: IPRATROPIUM/ALBUTEROL 0.5-2.5 MG/3 ML AMPUL NEB ONE (22:06)
[2018-04-27] MEDS ORDERED: MAGNESIUM SULFATE/D5W 1 GM/100 ML RTUPB IV ONE (22:12)
--- NOTE | 2018-04-27 22:13 | ER Document Report ---
ED General - General Chief Complaint: Respiratory Distress Stated Complaint: SHORTNESS OF BREATH Time Seen by Provider: 04/27/18 22:09 Mode of Arrival: Ambulatory Information source: Patient Notes: 62-year-old female with COPD, asthma, tobacco use presents with complaint of shortness of breath that started this morning. Patient denies associated cough but does state that she has chest tightness. She states that she is is trying to quit smoking. She denies any recent illness. She denies chest pain, palpitation, fever, chills, nausea, vomiting. Patient has required BiPAP and intubation in the past. No recent admissions. TRAVEL OUTSIDE OF THE [place] IN LAST 30 DAYS: No - HPI Onset: This morning Onset/Duration: Gradual, Persistent, Worse Quality of pain: Other - Chest tightness Severity: Moderate Associated symptoms: Shortness of breath Exacerbated by: Walking, Coughing Relieved by: Denies Similar symptoms previously: Yes Recently seen / treated by doctor: No - Related Data Allergies/Adverse Reactions: No Known Allergies Allergy (Verified 04/27/18 22:10) Past Medical History - General Information source: Patient - Social History Smoking Status: Current Every Day Smoker Cigarette use (# per day): Yes - 15 Smoking Education Provided: Yes - Patient was counseled regarding smoking cessation for 4 minutes Frequency of alcohol use: None Drug Abuse: None Lives with: Family Family History: Reviewed & Not Pertinent Patient has suicidal ideation: No Patient has homicidal ideation: No - Medical History Medical History: Negative - Past Medical History Cardiac Medical History: Reports: Hx Atrial Fibrillation Denies: Hx Pulmonary Embolism Pulmonary Medical History: Reports: Hx Asthma, Hx COPD, Hx Pneumonia Denies: Hx Bronchitis, Hx Respiratory Failure, Hx Sleep Apnea, Hx Tuberculosis Endocrine Medical History: Denies: Hx Graves' Disease Renal/ Medical History: Denies: Hx End Stage Renal Disease, Hx Kidney Stones, Hx Ovarian Cysts, Hx Peritoneal Dialysis, Hx Pelvic Inflammatory Disease Malignancy Medical History: Denies: Hx Breast Cancer, Hx Cervical Cancer, Hx Lung Cancer, Hx Ovarian Cancer GI Medical History: Reports: Hx Gastroesophageal Reflux Disease, Hx Ulcer. Denies: Hx Crohn's Disease, Hx Hiatal Hernia, Hx Irritable Bowel, Hx Liver Failure, Hx Pancreatitis Musculoskeletal Medical History: Reports Hx Arthritis - HANDS, Denies Hx Fibromyalgia, Denies Hx Muscular Dystrophy Psychiatric Medical History: Reports: Hx Depression Denies: Hx Bipolar Disorder, Hx Post Traumatic Stress Disorder, Hx Schizophrenia Traumatic Medical History: Denies: Hx Fractures Past Surgical History: Reports: Hx Gynecologic Surgery - fibroid removal, Hx Hysterectomy, Hx Tubal Ligation. Denies: Hx Appendectomy, Hx Bowel Surgery, Hx Section, Hx Cholecystectomy, Hx Colostomy, Hx Coronary Artery Bypass Graft, Hx Gastric Bypass Surgery, Hx Herniorrhaphy, Hx Mastectomy, Hx Pacemaker , Hx Tonsillectomy - Immunizations Hx Diphtheria, Pertussis, Tetanus Vaccination: Yes Review of Systems - Review of Systems Notes: REVIEW OF SYSTEMS: CONSTITUTIONAL : Denies fever, chills, or sweats. Denies recent illness. Denies weight loss, recent hospitalizations. EENT: Denies visual changes, eye pain. Denies nasal or sinus congestion or discharge. Denies sore throat, oral lesions, difficulty swallowing. CARDIOVASCULAR: Denies chest pain. Denies palpitations. Denies lower extremity edema. RESPIRATORY: Denies cough, cold, or chest congestion. Denies shortness of breath, wheezing. GASTROINTESTINAL: Denies abdominal pain or distention. Denies nausea, vomiting , or diarrhea. Denies blood in vomitus, stools, or per rectum. Denies black, tarry stools. Denies constipation. GENITOURINARY: Denies difficulty urinating, painful urination, frequency, blood in urine, or vaginal discharge. MUSCULOSKELETAL: Denies back or neck pain or stiffness. Denies joint pain or swelling. SKIN: Denies rash, lesions or sores. HEMATOLOGIC : Denies easy bruising or bleeding. LYMPHATIC: Denies swollen glands. NEUROLOGICAL: Denies confusion or altered mental status. Denies passing out or loss of consciousness. Denies dizziness or lightheadedness. Denies headache. Denies weakness or paralysis. Denies problems difficulty with ambulation, slurred speech. Denies sensory loss, numbness, or tingling. Denies seizures. PSYCHIATRIC: Denies anxiety or stress. Denies depression, suicidal ideation, or homicidal ideation. Denies visual or auditory hallucinations. Physical Exam - Vital signs Vitals: Temp Pulse Resp BP Pulse Ox 98.4 F 128 H 26 H 130/81 H 88 L 04/27/18 21:39 04/27/18 21:39 04/27/18 21:39 04/27/18 21:39 04/27/18 21:39 Interpretation: Tachycardic, Hypoxic, Tachypneic - Notes Notes: PHYSICAL EXAMINATION: GENERAL: Well-appearing, well-nourished and in no acute distress. HEAD: Atraumatic, normocephalic. EYES: Pupils equal round and reactive to light, extraocular movements intact, conjunctiva are normal. ENT: Nares patent, oropharynx clear without exudates. Moist mucous membranes. NECK: Normal range of motion, supple without lymphadenopathy LUNGS: Diminished breath sounds in all lung banda. Accessory muscle use. Inability to speak in full sentences. HEART: Regular rate and rhythm without murmurs ABDOMEN: Soft, nontender, nondistended abdomen. No guarding, no rebound. No masses appreciated. Female : deferred Musculoskeletal: Normal range of motion, no pitting or edema. No cyanosis. NEUROLOGICAL: Cranial nerves grossly intact. Normal speech, normal gait. Normal sensory, motor exams PSYCH: Normal mood, normal affect. SKIN: Warm, Dry, normal turgor, no rashes or lesions noted. Course - Re-evaluation Re-evalutation: Laboratory 04/27/18 04/27/18 04/27/18 21:44 23:26 23:26 WBC 6.0 RBC 4.84 Hgb 14.7 Hct 44.2 MCV 91 MCH 30.5 MCHC 33.3 RDW 14.3 H Plt Count 248 Seg Neutrophils % 42.8 Lymphocytes % 41.6 Monocytes % 10.9 Eosinophils % 3.7 Basophils % 1.0 Absolute Neutrophils 2.6 Absolute Lymphocytes 2.5 Absolute Monocytes 0.6 Absolute Eosinophils 0.2 Absolute Basophils 0.1 VBG pH 7.30 VBG pCO2 50.0 VBG HCO3 24.0 VBG Base Excess -2.9 Sodium 144.4 Potassium 4.0 Chloride 111 H Carbon Dioxide 23 Anion Gap 10 BUN 11 Creatinine 0.69 Est GFR ( Amer) > 60 Est GFR (Non-Af Amer) > 60 Glucose 150 H Calcium 9.7 Chest X-Ray 04/27/18 22:06 IMPRESSION: No evidence of acute cardiopulmonary disease. 62-year-old female with COPD, asthma, tobacco use presents with complaint of shortness of breath that started this morning. Patient denies associated cough but does state that she has chest tightness. She states that she is is trying to quit smoking. She denies any recent illness. She denies chest pain, palpitation, fever, chills, nausea, vomiting. Patient has required BiPAP and intubation in the past. No recent admissions. Patient was seen by myself upon arrival. Vital signs were reviewed. Patient is afebrile, hypertensive, hypoxic , tachypneic. Patient does not appear toxic or dehydrated, he is in significant respiratory distress. Previous medical records and nursing notes reviewed. Significant findings include diminished breath sounds in all lung banda. CBC is without leukocytosis in his blood glass within normal limits, CMP also within normal limits except for mildly elevated glucose. Patient was provided multiple breathing treatments, magnesium, Solu-Medrol. 04/27/18 23:14 Patient placed on BiPAP after no improvement with breathing treatments and magnesium. I did discuss admission with the patient who states she does not want to be admitted. 04/28/18 00:41 On reevaluation patient states that she feels much better. She was ambulated on pulse ox and desaturated to 86% and her heart rate went up to 135. I discussed admission with the patient again who is declining at this time. She is alert, awake and capable of making her own decisions. Patient provided the opportunity to ask questions, and express concerns. Discharge instructions discussed. Patient is agreeable with discharge home. Return indications explained and discussed with the patient who displays understanding. Patient encouraged to return to the emergency department immediately with any concerns. 04/28/18 05:31 - Vital Signs Vital signs: Temp Pulse Resp BP Pulse Ox 98.4 F 112 H 19 122/82 93 04/27/18 21:39 04/28/18 00:00 04/28/18 00:00 04/28/18 00:00 04/28/18 00:00 - Laboratory Result Diagrams: 04/27/18 21:44 04/27/18 23:26 Laboratory results interpreted by me: 04/27/18 04/27/18 21:44 23:26 RDW 14.3 H Chloride 111 H Glucose 150 H - Diagnostic Test Radiology reviewed: Image reviewed, Reports reviewed Discharge - Discharge Clinical Impression: COPD exacerbation, Tobacco abuse, Respiratory distress, Hypoxia, Tachycardia Condition: Good Disposition: AGAINST MEDICAL ADVICE Instructions: Asthma ([facility]), Chronic Obstructive Lung Disease ([facility]), Stop Smoking ([facility]) Prescriptions: Prednisone [Deltasone 20 mg Tablet] 3 tab PO DAILY 5 Days #15 tablet Forms: Smoking Cessation Education Referrals: NUBIA GAR MD [Primary Care Provider] - Follow up in 3-5 days
[2018-04-27] MEDS: MAGNESIUM SULFATE/D5W 1 GM/100 ML RTUPB IV SCH ×2 (22:17→22:28)
--- NOTE | 2018-04-27 22:47 | RADIOLOGY REPORT (SQ) ---
EXAM DESCRIPTION: XR CHEST 1 VIEW COMPLETED DATE/TME: 04/27/2018 22:06 CLINICAL HISTORY: 62 years, Female, SOB; O2 88% room air; hx asthma EXAM DESCRIPTION: CLINICAL HISTORY: SOB; O2 88% room air; hx asthma COMPARISON: 04/09/2018 FINDINGS: Single view of the chest is submitted. Cardiac silhouette is normal. No focal parenchymal or pleural disease. No acute bony abnormality. There is no significant pulmonary vascular engorgement. IMPRESSION: No evidence of acute cardiopulmonary disease.
[2018-04-27 23:40] LABS: ABSOLUTE BASOPHILS # (AUTO) 0.1 10^3/uL (0.0-0.2); ABSOLUTE EOSINOPHILS # (AUTO) 0.2 10^3/uL (0.0-0.6); ABSOLUTE LYMPHOCYTES (AUTO) 2.5 10^3/uL (0.5-4.7); ABSOLUTE MONOCYTES (AUTO) 0.6 10^3/uL (0.1-1.4); ABSOLUTE NEUT (AUTO) 2.6 10^3/uL (1.7-8.2); EOSINOPHILS % (AUTO) 3.7 % (0-6); HEMATOCRIT 44.2 % (36.0-47.0); HEMOGLOBIN 14.7 g/dL (12.0-15.5); LYMPHOCYTES % (AUTO) 41.6 % (13-45); MEAN CORPUSCULAR HEMOGLOBIN 30.5 pg (27.0-33.4); MEAN CORPUSCULAR HGB CONC 33.3 g/dL (32.0-36.0); MEAN CORPUSCULAR VOLUME 91 fl (80-97); MONOCYTES % (AUTO) 10.9 % (3-13); PLATELET COUNT 248 10^3/uL (150-450); RED BLOOD COUNT 4.84 10^6/uL (3.72-5.28); RED CELL DISTRIBUTION WIDTH 14.3 % (11.5-14.0); SEGMENTED NEUTROPHILS % (AUTO) 42.8 % (42-78); TOTAL CELLS COUNTED % (AUTO) 100 %
[2018-04-27 23:45] LABS: VENOUS BLOOD BASE EXCESS -2.9 mmol/L; VENOUS BLOOD PH 7.3 (7.30-7.42)
[2018-04-28 00:06] LABS: ANION GAP 10 (5-19); BLOOD UREA NITROGEN 11 mg/dL (7-20); CALCIUM 9.7 mg/dL (8.4-10.2); CARBON DIOXIDE 23 mmol/L (22-30); CHLORIDE 111 mmol/L (98-107); GLUCOSE 150 mg/dL (75-110); SODIUM 144.4 mmol/L (137-145)
[2018-04-28 00:55] VITALS: BP 122/82
== END 2018-04-28 00:57 | disposition left against medical advice (07) ==
LOC: ER 21:39
DX: J44.1 Chronic obstructive pulmonary disease with (acute) exacerbation (principal); R09.02 Hypoxemia; R00.0 Tachycardia, unspecified; R06.02 Shortness of breath; F17.210 Nicotine dependence, cigarettes, uncomplicated; Z71.6 Tobacco abuse counseling; R07.89 Other chest pain; Z87.01 Personal history of pneumonia (recurrent)
CPT/HCPCS: 99406; 94640 ×2; 99285; 96375; 96365; 36415; 85025; 80048; 82803; 71045; 94660; J2930; J3475; J7620

== ENCOUNTER 2018-05-25 18:39 | Emergency (ER) | payer OTHER ==
[2018-05-25] MEDS ORDERED: MECLIZINE HCL 25 MG TABLET PO ONE (19:57)
--- NOTE | 2018-05-25 19:59 | ER Document Report ---
ED Medical Screen (RME) - General Chief Complaint: Shortness Of Breath Stated Complaint: DIFFICULTY BREATHING, NAUSEA Time Seen by Provider: 05/25/18 19:55 Mode of Arrival: Medic Information source: Patient, Relative TRAVEL OUTSIDE OF THE [place] IN LAST 30 DAYS: No - HPI Patient complains to provider of: Dizziness lightheadedness Onset: Other - 62-year-old female presents for evaluation of dizziness lightheadedness persistent nausea and vomiting who started feeling bad around 5 hours prior to arrival, she has known COPD as well as hypertension has had some shortness of breath as well. She notes that every time she sits up she vomits. She denies any abdominal pain but does note some palpitations shortness of breath lightheadedness. She never had a stroke in the past, she may have had something in her heart which is uncertain. - Related Data Allergies/Adverse Reactions: No Known Allergies Allergy (Verified 05/25/18 18:43) Past Medical History - Social History Chew tobacco use (# tins/day): No Frequency of alcohol use: None Drug Abuse: None - Past Medical History Cardiac Medical History: Reports: Hx Atrial Fibrillation Denies: Hx Pulmonary Embolism Pulmonary Medical History: Reports: Hx Asthma, Hx COPD, Hx Pneumonia Denies: Hx Bronchitis, Hx Respiratory Failure, Hx Sleep Apnea, Hx Tuberculosis Endocrine Medical History: Denies: Hx Graves' Disease Renal/ Medical History: Denies: Hx End Stage Renal Disease, Hx Kidney Stones, Hx Ovarian Cysts, Hx Peritoneal Dialysis, Hx Pelvic Inflammatory Disease Malignancy Medical History: Denies: Hx Breast Cancer, Hx Cervical Cancer, Hx Lung Cancer, Hx Ovarian Cancer GI Medical History: Reports: Hx Gastroesophageal Reflux Disease, Hx Ulcer. Denies: Hx Crohn's Disease, Hx Hiatal Hernia, Hx Irritable Bowel, Hx Liver Failure, Hx Pancreatitis Musculoskeltal Medical History: Reports Hx Arthritis - HANDS, Denies Hx Fibromyalgia, Denies Hx Muscular Dystrophy Psychiatric Medical History: Reports: Hx Depression Denies: Hx Bipolar Disorder, Hx Post Traumatic Stress Disorder, Hx Schizophrenia Traumatic Medical History: Denies: Hx Fractures Past Surgical History: Reports: Hx Gynecologic Surgery - fibroid removal, Hx Hysterectomy, Hx Tubal Ligation. Denies: Hx Appendectomy, Hx Bowel Surgery, Hx Section, Hx Cholecystectomy, Hx Colostomy, Hx Coronary Artery Bypass Graft, Hx Gastric Bypass Surgery, Hx Herniorrhaphy, Hx Mastectomy, Hx Pacemaker , Hx Tonsillectomy - Immunizations Hx Diphtheria, Pertussis, Tetanus Vaccination: Yes Physical Exam - Vital signs Vitals: Temp Pulse Resp BP Pulse Ox 98.1 F 102 H 20 138/93 H 98 05/25/18 19:08 05/25/18 19:08 05/25/18 19:08 05/25/18 19:08 05/25/18 19:08 Course - Re-evaluation Re-evalutation: 05/25/18 19:58 62-year-old female with a mixed complaint, initially with shortness of breath seen by EMS received steroids as well as breathing treatment. She notes that she feels dizzy and has persistent vomiting every time she sits up with her head not lay down. She never had anything like this in the past denies any history of vertigo. She notes that she is having some palpitations and some shortness of breath and chest pain. Given the fact that she is got a mixed picture will defer further imaging at this time will administer meclizine to help with potential vertigo type symptoms. Patient to be evaluated through the main side of the emergency department. - Vital Signs Vital signs: Temp Pulse Resp BP Pulse Ox 98.1 F 102 H 20 138/93 H 98 05/25/18 19:08 05/25/18 19:08 05/25/18 19:08 05/25/18 19:08 05/25/18 19:08 Doctor's Discharge - Discharge Referrals: NUBIA GAR MD [Primary Care Provider] - Follow up as needed
[2018-05-25 20:20] LABS: ABSOLUTE EOSINOPHILS # (AUTO) 0.2 10^3/uL (0.0-0.6); ABSOLUTE LYMPHOCYTES (AUTO) 0.9 10^3/uL (0.5-4.7); ABSOLUTE MONOCYTES (AUTO) 0.2 10^3/uL (0.1-1.4); ABSOLUTE NEUT (AUTO) 5.7 10^3/uL (1.7-8.2); BASOPHILS % (AUTO) 0.7 % (0-2); EOSINOPHILS % (AUTO) 2.2 % (0-6); HEMATOCRIT 45.8 % (36.0-47.0); HEMOGLOBIN 15.6 g/dL (12.0-15.5); LYMPHOCYTES % (AUTO) 12.5 % (13-45); MEAN CORPUSCULAR HEMOGLOBIN 31.2 pg (27.0-33.4); MEAN CORPUSCULAR VOLUME 92 fl (80-97); MONOCYTES % (AUTO) 3.5 % (3-13); PLATELET COUNT 261 10^3/uL (150-450); RED CELL DISTRIBUTION WIDTH 14.3 % (11.5-14.0); SEGMENTED NEUTROPHILS % (AUTO) 81.1 % (42-78); TOTAL CELLS COUNTED % (AUTO) 100 %
[2018-05-25] MEDS ORDERED: IPRATROPIUM/ALBUTEROL 0.5-2.5 MG/3 ML AMPUL NEB ONE ×2 (20:21→21:47)
--- NOTE | 2018-05-25 20:25 | ER Document Report ---
ED General - General Chief Complaint: Shortness Of Breath Stated Complaint: DIFFICULTY BREATHING, NAUSEA Time Seen by Provider: 05/25/18 19:55 Mode of Arrival: Medic Notes: Patient is a 62 year old female that comes to the ED by EMS for complaints of shortness of breath, wheezing, and chest tightness that worsened today, along with symptoms of dizziness and spinning sensation along with vomiting that started 5 hours ago. She states that when she sits up and turns her head she first starts feeling dizzy and nauseated. She was given Zofran, Solu-Medrol, breathing treatment by EMS and she states she feels somewhat better but not completely resolved. She states she thinks she might of had a fever at home but she is unsure. No particular areas of abdominal pain. She smokes, past medical history of COPD with inhalers at home, no oxygen at home. Remaining past medical history includes hypertension, surgery for perforated ulcer, denies ID or stroke, denies medical history otherwise. TRAVEL OUTSIDE OF THE [place] IN LAST 30 DAYS: No - Related Data Allergies/Adverse Reactions: No Known Allergies Allergy (Verified 05/25/18 18:43) Past Medical History - General Information source: Patient, Relative - Social History Smoking Status: Current Every Day Smoker Chew tobacco use (# tins/day): No Frequency of alcohol use: None Drug Abuse: None Lives with: Family Family History: Reviewed & Not Pertinent Patient has suicidal ideation: No Patient has homicidal ideation: No - Past Medical History Cardiac Medical History: Reports: Hx Atrial Fibrillation Denies: Hx Pulmonary Embolism Pulmonary Medical History: Reports: Hx Asthma, Hx COPD, Hx Pneumonia Denies: Hx Bronchitis, Hx Respiratory Failure, Hx Sleep Apnea, Hx Tuberculosis Endocrine Medical History: Denies: Hx Graves' Disease Renal/ Medical History: Denies: Hx End Stage Renal Disease, Hx Kidney Stones, Hx Ovarian Cysts, Hx Peritoneal Dialysis, Hx Pelvic Inflammatory Disease Malignancy Medical History: Denies: Hx Breast Cancer, Hx Cervical Cancer, Hx Lung Cancer, Hx Ovarian Cancer GI Medical History: Reports: Hx Gastroesophageal Reflux Disease, Hx Ulcer. Denies: Hx Crohn's Disease, Hx Hiatal Hernia, Hx Irritable Bowel, Hx Liver Failure, Hx Pancreatitis Musculoskeletal Medical History: Reports Hx Arthritis - HANDS, Denies Hx Fibromyalgia, Denies Hx Muscular Dystrophy Psychiatric Medical History: Reports: Hx Depression Denies: Hx Bipolar Disorder, Hx Post Traumatic Stress Disorder, Hx Schizophrenia Traumatic Medical History: Denies: Hx Fractures Past Surgical History: Reports: Hx Gynecologic Surgery - fibroid removal, Hx Hysterectomy, Hx Tubal Ligation. Denies: Hx Appendectomy, Hx Bowel Surgery, Hx Section, Hx Cholecystectomy, Hx Colostomy, Hx Coronary Artery Bypass Graft, Hx Gastric Bypass Surgery, Hx Herniorrhaphy, Hx Mastectomy, Hx Pacemaker , Hx Tonsillectomy - Immunizations Hx Diphtheria, Pertussis, Tetanus Vaccination: Yes Review of Systems - Review of Systems Constitutional: See HPI EENT: No symptoms reported Cardiovascular: See HPI Respiratory: See HPI Gastrointestinal: See HPI Genitourinary: No symptoms reported Female Genitourinary: No symptoms reported Musculoskeletal: No symptoms reported Skin: No symptoms reported Hematologic/Lymphatic: No symptoms reported Neurological/Psychological: See HPI Physical Exam - Vital signs Vitals: Temp Pulse Resp BP Pulse Ox 98.1 F 102 H 20 138/93 H 98 05/25/18 19:08 05/25/18 19:08 05/25/18 19:08 05/25/18 19:08 05/25/18 19:08 - Notes Notes: GENERAL: Alert, interacts well. No acute distress. HEAD: Normocephalic, atraumatic. EYES: Pupils equal, round, and reactive to light. Extraocular movements intact. Questionable minimal horizontal nystagmus to the right. ENT: Oral mucosa moist, tongue midline. Normal oropharyngeal exam. NECK: Full range of motion. Supple. Trachea midline. LUNGS: Decreased breath sounds bilaterally with expiratory wheezes throughout. No noted rales or rhonchi. No tachypnea or labored breathing. HEART: Borderline tachycardic, no murmur, no extrasystoles noted. ABDOMEN: Soft, non-tender. Non-distended. Bowel sounds present in all 4 quadrants. EXTREMITIES: Moves all 4 extremities spontaneously. No edema, normal radial and dorsalis pedis pulses bilaterally. No cyanosis. BACK: no cervical, thoracic, lumbar midline tenderness. No saddle anesthesia, normal distal neurovascular exam. NEUROLOGICAL: Alert and oriented x3. Normal speech. [cranial nerves II through XII grossly intact]. PSYCH: Normal affect, normal mood. SKIN: Warm, dry, normal turgor. No rashes or lesions noted. Course - Re-evaluation Re-evalutation: EKG showing sinus rhythm at a rate of 96, no T-wave inversions or ST segment changes in consecutive leads. Borderline Q waves in the inferior leads. No significant change from prior. Chest x-ray shows COPD but no acute findings. CBC generally unremarkable, chemistry nonspecific, troponin is not elevated. 05/25/18 21:35 Patient was given magnesium, additional DuoNebs. On reevaluation patient significantly improved. Wheezing almost resolved, tightness in her chest resolved, denies dizziness after meclizine. Smiling and states she feels much improved. Patient does not have tachypnea now, she appears much improved, minimal wheezing now, patient got up and ambulated without difficulty, she ambulated without pulse oxygen desaturation. Because of her symptoms I did discuss possible imaging of the head and even possible admission for her dizziness and COPD exacerbation but patient states that she feels good and she would like to leave. 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 I discussed this with family. Discharged with return precautions. - Vital Signs Vital signs: Temp Pulse Resp BP Pulse Ox 97.8 F 109 H 19 119/88 H 94 05/26/18 00:18 05/25/18 20:17 05/26/18 00:29 05/26/18 00:30 05/26/18 00:29 - Laboratory Result Diagrams: 05/25/18 20:00 05/25/18 20:00 Laboratory results interpreted by me: 05/25/18 05/25/18 20:00 20:00 Hgb 15.6 H RDW 14.3 H Seg Neutrophils % 81.1 H Lymphocytes % 12.5 L Glucose 125 H AST 37 H Discharge - Discharge Clinical Impression: Wheezing, COPD exacerbation, Dizziness Vomiting Qualifiers: Vomiting type: unspecified Vomiting Intractability: non-intractable Nausea presence: with nausea Qualified Code(s): R11.2 - Nausea with vomiting, unspecified Condition: Stable Disposition: HOME, SELF-CARE Additional Instructions: You have been treated for COPD exacerbation here, continue home inhalers, take prednisone as prescribed, use your home nebulizer. 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 Your evaluation and symptoms, along with your response to treatment suggest labyrinthitis (inner ear abnormality that is temporary causing vertigo, nausea, etc.). Take meclizine as prescribed for this. Follow-up with your primary care within the next 2-3 days. Return if you worsen including fever, difficulty breathing, passing out, worsening dizziness, returned or uncontrolled vomiting, or any other concerning or worsening symptoms. Prescriptions: Meclizine HCl [Bonine] 25 mg PO TID #24 tab.chew Prednisone 60 mg PO DAILY #15 tablet Referrals: NUBIA GAR MD [ACTIVE STAFF] - Follow up as needed
--- NOTE | 2018-05-25 20:46 | EKG REPORT ---
SEVERITY:- BORDERLINE ECG - SINUS RHYTHM LOW VOLTAGE IN FRONTAL LEADS CONSIDER INFERIOR INFARCT : Confirmed by: Blade Sepulveda 25-May-2018 20:45:44
[2018-05-25 20:48] LABS: ALANINE AMINOTRANSFERASE 13 U/L (9-52); ALBUMIN 4.2 g/dL (3.5-5.0); ALKALINE PHOSPHATASE 89 U/L (38-126); ANION GAP 10 (5-19); ASPARTATE AMINO TRANSFERASE 37 U/L (14-36); BILIRUBIN,DIRECT 0.3 mg/dL (0.0-0.4); BILIRUBIN,TOTAL 0.4 mg/dL (0.2-1.3); BLOOD UREA NITROGEN 9 mg/dL (7-20); CALCIUM 9.7 mg/dL (8.4-10.2); CARBON DIOXIDE 26 mmol/L (22-30); CHLORIDE 107 mmol/L (98-107); GLUCOSE 125 mg/dL (75-110); POTASSIUM 4.2 mmol/L (3.6-5.0); SODIUM 142.6 mmol/L (137-145); TOTAL PROTEIN 7.6 g/dL (6.3-8.2)
[2018-05-25] MEDS: MAGNESIUM SULFATE/D5W 1 GM/100 ML RTUPB IV SCH ×2 (20:48→21:09)
--- NOTE | 2018-05-25 20:51 | RADIOLOGY REPORT (SQ) ---
EXAM DESCRIPTION: CHEST 2 VIEWS COMPLETED DATE/TIME: 05/25/2018 8:42 pm REASON FOR STUDY: short of [facility] COMPARISON: 06/30/2016 NUMBER OF VIEWS: Two view. TECHNIQUE: Frontal and lateral radiographic views of the chest acquired. LIMITATIONS: None. FINDINGS: LUNGS AND PLEURA: No opacities, masses or pneumothorax. No pleural effusion. Attenuated bl ood vessels and flattened cristobal-diaphragms. MEDIASTINUM AND HILAR STRUCTURES: No masses. No contour abnormalities. HEART AND VASCULAR STRUCTURES: Heart normal in size and contour. No evidence for failure. BONES: Right proximal humor surgical anchor and epigastric surgical clips, unchanged. HARDWARE: None in the chest. OTHER: No other significant finding. IMPRESSION: COPD. NO ACUTE RADIOGRAPHIC FINDING IN THE CHEST. TECHNICAL DOCUMENTATION: JOB ID: [id number] [employer]- All Rights Reserved Reading location - IP/workstation name: [email or web address]
[2018-05-25] MEDS ORDERED: ONDANSETRON ODT 4 MG TAB (6 TAB/ER DISP) PO PRN (23:03)
[2018-05-26 00:38] VITALS: BP 119/88
== END 2018-05-26 00:39 | disposition home or self-care (01) ==
LOC: ER 18:39
DX: J44.1 Chronic obstructive pulmonary disease with (acute) exacerbation (principal); R11.2 Nausea with vomiting, unspecified; R42 Dizziness and giddiness; I48.91 Unspecified atrial fibrillation; Z90.710 Acquired absence of both cervix and uterus
CPT/HCPCS: 93005; 36415; 85025; 80053; 84484; 71046; 93010; J3475; J7620

== ENCOUNTER 2018-07-12 17:26 | Emergency (ER) | payer OTHER ==
[2018-07-12] MEDS ORDERED: IPRATROPIUM/ALBUTEROL 0.5-2.5 MG/3 ML AMPUL NEB ONE (18:16)
[2018-07-12] MEDS ORDERED: PREDNISONE 20 MG TABLET PO ONE (18:16)
--- NOTE | 2018-07-12 18:17 | ER Document Report ---
ED Medical Screen (RME) - General Chief Complaint: Flank Pain Stated Complaint: LEFT SIDE PAIN/WHEEZING Time Seen by Provider: 07/12/18 18:15 Mode of Arrival: Ambulatory Information source: Patient TRAVEL OUTSIDE OF THE [place] IN LAST 30 DAYS: No - HPI Patient complains to provider of: abd pain; wheezing Onset: Yesterday - pt with L-SIDED ABD PAIN and intermittent wheezing for the past 2-3 days - Related Data Allergies/Adverse Reactions: No Known Allergies Allergy (Verified 05/25/18 18:43) Past Medical History - Social History Chew tobacco use (# tins/day): No Frequency of alcohol use: None Drug Abuse: None - Past Medical History Cardiac Medical History: Reports: Hx Atrial Fibrillation Denies: Hx Pulmonary Embolism Pulmonary Medical History: Reports: Hx Asthma, Hx COPD, Hx Pneumonia Denies: Hx Bronchitis, Hx Respiratory Failure, Hx Sleep Apnea, Hx Tuberculosis Endocrine Medical History: Denies: Hx Graves' Disease Renal/ Medical History: Denies: Hx End Stage Renal Disease, Hx Kidney Stones, Hx Ovarian Cysts, Hx Peritoneal Dialysis, Hx Pelvic Inflammatory Disease Malignancy Medical History: Denies: Hx Breast Cancer, Hx Cervical Cancer, Hx Lung Cancer, Hx Ovarian Cancer GI Medical History: Reports: Hx Gastroesophageal Reflux Disease, Hx Ulcer. Denies: Hx Crohn's Disease, Hx Hiatal Hernia, Hx Irritable Bowel, Hx Liver Failure, Hx Pancreatitis Musculoskeltal Medical History: Reports Hx Arthritis - HANDS, Denies Hx Fibromyalgia, Denies Hx Muscular Dystrophy Psychiatric Medical History: Reports: Hx Depression Denies: Hx Bipolar Disorder, Hx Post Traumatic Stress Disorder, Hx Schizophrenia Traumatic Medical History: Denies: Hx Fractures Past Surgical History: Reports: Hx Abdominal Surgery, Hx Gynecologic Surgery - fibroid removal, Hx Hysterectomy, Hx Tubal Ligation. Denies: Hx Appendectomy, Hx Bowel Surgery, Hx Section, Hx Cholecystectomy, Hx Colostomy, Hx Coronary Artery Bypass Graft, Hx Gastric Bypass Surgery, Hx Herniorrhaphy, Hx Mastectomy, Hx Pacemaker, Hx Tonsillectomy - Immunizations Hx Diphtheria, Pertussis, Tetanus Vaccination: Yes Physical Exam - Vital signs Vitals: Temp Pulse Resp BP Pulse Ox 98.4 F 126 H 28 H 111/75 95 07/12/18 17:32 07/12/18 17:32 07/12/18 17:32 07/12/18 17:32 07/12/18 17:32 Course - Vital Signs Vital signs: Temp Pulse Resp BP Pulse Ox 98.4 F 126 H 28 H 111/75 95 07/12/18 17:32 07/12/18 17:32 07/12/18 17:32 07/12/18 17:32 07/12/18 17:32 Doctor's Discharge - Discharge Referrals: ILANA MAGDALENO MD [Primary Care Provider] - Follow up as needed
--- NOTE | 2018-07-12 18:55 | RADIOLOGY REPORT (SQ) ---
EXAM DESCRIPTION: ACUTE ABDOMEN SERIES COMPLETED DATE/TIME: 07/12/2018 6:37 pm REASON FOR STUDY: abd pain COMPARISON: None. NUMBER OF VIEWS: Three views. TECHNIQUE: Frontal chest, supine abdomen and upright/decubitus abdomen radiographic images acquired. LIMITATIONS: None. FINDINGS: CHEST: Lungs clear of infiltrates. FREE AIR: None. No abnormal gas collections. BOWEL GAS PATTERN: Nonobstructive pattern. No air fluid levels. Large amount of material in the upper abdomen and left upper quadrant, possible stomach full of inges amanda content versus large amount of stool in the transverse colon. CALCIFICATIONS: No suspicious calcifications. HARDWARE: None in the abdomen. SOFT TISSUES: No gross mass or suggestion of organomegaly. BONES: No acute fracture. No worrisome bone lesions. OTHER: No other significant finding. IMPRESSION: Nonobstructive pattern. No air fluid levels.Large amount of material in the upper abdom en and left upper quadrant, possible stomach full of ingested contents versus large amount of stool i n the transverse colon. TECHNICAL DOCUMENTATION: JOB ID: [id number] [email or web address]- All Rights Reserved Reading location - IP/workstation name: [email or web address]
[2018-07-12 19:13] LABS: ABSOLUTE BASOPHILS # (AUTO) 0.1 10^3/uL (0.0-0.2); ABSOLUTE EOSINOPHILS # (AUTO) 0.2 10^3/uL (0.0-0.6); ABSOLUTE MONOCYTES (AUTO) 0.9 10^3/uL (0.1-1.4); ABSOLUTE NEUT (AUTO) 5.1 10^3/uL (1.7-8.2); BASOPHILS % (AUTO) 0.9 % (0-2); HEMATOCRIT 48.1 % (36.0-47.0); HEMOGLOBIN 16.4 g/dL (12.0-15.5); LYMPHOCYTES % (AUTO) 24.4 % (13-45); MEAN CORPUSCULAR HEMOGLOBIN 30.9 pg (27.0-33.4); MEAN CORPUSCULAR HGB CONC 34.1 g/dL (32.0-36.0); MEAN CORPUSCULAR VOLUME 91 fl (80-97); MONOCYTES % (AUTO) 10.6 % (3-13); PLATELET COUNT 277 10^3/uL (150-450); RED CELL DISTRIBUTION WIDTH 13.7 % (11.5-14.0); SEGMENTED NEUTROPHILS % (AUTO) 62.1 % (42-78); TOTAL CELLS COUNTED % (AUTO) 100 %; WHITE BLOOD COUNT 8.2 10^3/uL (4.0-10.5)
[2018-07-12 19:17] LABS: APPEARANCE,URINE CLOUDY; BILIRUBIN,URINE NEGATIVE (NEGATIVE); COLOR,URINE YELLOW; GLUCOSE, URINE NEGATIVE (NEGATIVE); KETONES,URINE TRACE mg/dL (NEGATIVE); LEUKOCYTE ESTERASE,URINE NEGATIVE (NEGATIVE); NITRITE,URINE NEGATIVE (NEGATIVE); PROTEIN,URINE NEGATIVE (NEGATIVE); URINE SPECIFIC GRAVITY 1.026
[2018-07-12 19:27] LABS: ALANINE AMINOTRANSFERASE 24 U/L (9-52); ALBUMIN 4.1 g/dL (3.5-5.0); ALKALINE PHOSPHATASE 80 U/L (38-126); ANION GAP 8 (5-19); ASPARTATE AMINO TRANSFERASE 25 U/L (14-36); BILIRUBIN,DIRECT 0.2 mg/dL (0.0-0.4); BILIRUBIN,TOTAL 0.5 mg/dL (0.2-1.3); BLOOD UREA NITROGEN 12 mg/dL (7-20); CALCIUM 10.2 mg/dL (8.4-10.2); CARBON DIOXIDE 28 mmol/L (22-30); CHLORIDE 105 mmol/L (98-107); GLUCOSE 103 mg/dL (75-110); LIPASE 111.9 U/L (23-300); POTASSIUM 4.3 mmol/L (3.6-5.0); SODIUM 140.5 mmol/L (137-145)
[2018-07-12] MEDS ORDERED: FAMOTIDINE 20 MG TABLET PO ONE (22:34)
[2018-07-12] MEDS ORDERED: LIDOCAINE 2% VISCOUS SOLN 20 ML UDCUP PO ONE (22:34)
[2018-07-12] MEDS ORDERED: METOCLOPRAMIDE HCL ORAL SOLN 10 MG/10 ML UDCUP PO ONE (22:34)
[2018-07-12] MEDS ORDERED: MAG HYDROX/AL HYDROX/SIMETH SUSP 30 ML UDCUP PO ONE (22:34)
--- NOTE | 2018-07-12 22:37 | ER Document Report ---
ED General - General Chief Complaint: Flank Pain Stated Complaint: LEFT SIDE PAIN/WHEEZING Time Seen by Provider: 07/12/18 18:15 Mode of Arrival: Ambulatory Notes: Patient is a 62-year-old female with a past medical history of COPD who presents with 2 distinct complaints. Her first and chief complaint at the time of my assessment is of postprandial fullness, heaviness in her upper abdomen with associated nausea and vomiting. The patient states that the pain sometimes wraps around to the left upper abdomen and left upper back. She states that she has seen her general doctor regarding this issue, was prescribed medication for her stomach but did not start this medication. She states that food does seem to worsen the symptoms. She has a past surgical history of an appendectomy and colonic mass resection. The patient was complaining of shortness of breath and a COPD exacerbation in triage but states that her symptoms have resolved after receiving a nebulizer. she denies any associated chest pain, pleuritic pain, fever or constitutional symptoms. She has not seen her general doctor regarding today's concerns. TRAVEL OUTSIDE OF THE [place] IN LAST 30 DAYS: No - Related Data Allergies/Adverse Reactions: No Known Allergies Allergy (Verified 05/25/18 18:43) Past Medical History - General Information source: Patient - Social History Smoking Status: Current Some Day Smoker Chew tobacco use (# tins/day): No Frequency of alcohol use: None Drug Abuse: None Lives with: Family Family History: Reviewed & Not Pertinent Patient has suicidal ideation: No Patient has homicidal ideation: No - Past Medical History Cardiac Medical History: Reports: Hx Atrial Fibrillation Denies: Hx Pulmonary Embolism Pulmonary Medical History: Reports: Hx Asthma, Hx COPD, Hx Pneumonia Denies: Hx Bronchitis, Hx Respiratory Failure, Hx Sleep Apnea, Hx Tuberculosis Endocrine Medical History: Denies: Hx Graves' Disease Renal/ Medical History: Denies: Hx End Stage Renal Disease, Hx Kidney Stones, Hx Ovarian Cysts, Hx Peritoneal Dialysis, Hx Pelvic Inflammatory Disease Malignancy Medical History: Denies: Hx Breast Cancer, Hx Cervical Cancer, Hx Lung Cancer, Hx Ovarian Cancer GI Medical History: Reports: Hx Gastroesophageal Reflux Disease, Hx Ulcer. Denies: Hx Crohn's Disease, Hx Hiatal Hernia, Hx Irritable Bowel, Hx Liver Failure, Hx Pancreatitis Musculoskeletal Medical History: Reports Hx Arthritis - HANDS, Denies Hx Fibromyalgia, Denies Hx Muscular Dystrophy Psychiatric Medical History: Reports: Hx Depression Denies: Hx Bipolar Disorder, Hx Post Traumatic Stress Disorder, Hx Schizophrenia Traumatic Medical History: Denies: Hx Fractures Past Surgical History: Reports: Hx Abdominal Surgery, Hx Gynecologic Surgery - fibroid removal, Hx Hysterectomy, Hx Tubal Ligation. Denies: Hx Appendectomy, Hx Bowel Surgery, Hx Section, Hx Cholecystectomy, Hx Colostomy, Hx Coronary Artery Bypass Graft, Hx Gastric Bypass Surgery, Hx Herniorrhaphy, Hx Mastectomy, Hx Pacemaker, Hx Tonsillectomy - Immunizations Hx Diphtheria, Pertussis, Tetanus Vaccination: Yes Review of Systems - Review of Systems Notes: Constitutional: Negative for fever. HENT: Negative for sore throat. Eyes: Negative for visual changes. Cardiovascular: Negative for chest pain. Respiratory: Positive for shortness of breath now resolved Gastrointestinal: Positive for abdominal pain and vomiting Genitourinary: Negative for dysuria. Musculoskeletal: Negative for back pain. Skin: Negative for rash. Neurological: Negative for headaches, weakness or numbness. 10 point ROS negative except as marked above and in HPI. Physical Exam - Vital signs Vitals: Temp Pulse Resp BP Pulse Ox 98.4 F 126 H 28 H 111/75 95 07/12/18 17:32 07/12/18 17:32 07/12/18 17:32 07/12/18 17:32 07/12/18 17:32 Interpretation: Tachycardic - Resolved at the time my assessment, Tachypneic - Resolved at the time my assessment Notes: PHYSICAL EXAMINATION: GENERAL: Well-appearing, well-nourished and in no acute distress. HEAD: Atraumatic, normocephalic. EYES: Pupils equal round and reactive to light, extraocular movements intact, sclera anicteric, conjunctiva are normal. ENT: nares patent, oropharynx clear without exudates. Moist mucous membranes. NECK: Normal range of motion, supple without lymphadenopathy LUNGS: Breath sounds clear to auscultation bilaterally and equal. No wheezes rales or rhonchi. HEART: Regular rate and rhythm without murmurs ABDOMEN: Soft, nontender, normoactive bowel sounds. No guarding, no rebound. No masses appreciated. EXTREMITIES: Normal range of motion, no pitting or edema. No cyanosis. NEUROLOGICAL: No focal neurological deficits. Moves all extremities spontaneously and on command. PSYCH: Normal mood, normal affect. SKIN: Warm, Dry, normal turgor, no rashes or lesions noted. Course - Re-evaluation Re-evalutation: 07/12/18 22:36 Patient presents with epigastric abdominal pain with associated reflux symptoms most consistent with likely gastritis. Patient has no focal abdominal tenderness on examination. Symptoms, lab and assessment are inconsistent with biliary pathology, no indication for right upper quadrant ultrasound at this point. Lipase is normal. No LFT changes. Based on history and exam, I do not suspect ACS, pulmonary embolus, SBO, mesenteric ischemia, acute pancreatitis, biliary pathology, or an abdominal aortic dissection. Patient has had improvement of symptoms here with a GI cocktail. X-ray without any evidence of obstruction. Patient did have some wheezing in triage apparently, nebulizer was given and this did resolve the patient's wheezing. She has no wheezing at the time of my assessment. At this time will discharge with return precautions and follow-up recommendations. Verbal discharge instructions given a the bedside and opportunity for questions given. Medication warnings reviewed. Patient is in agreement with this plan and has verbalized understanding of return precautions and the need for primary care follow-up in the next 24-72 hours. - Vital Signs Vital signs: Temp Pulse Resp BP Pulse Ox 98.7 F 95 16 122/86 H 95 07/12/18 22:37 07/12/18 22:37 07/12/18 22:37 07/12/18 22:37 07/12/18 22:37 - Laboratory Result Diagrams: 07/12/18 18:39 07/12/18 18:39 Laboratory results interpreted by me: 07/12/18 07/12/18 18:39 18:40 RBC 5.30 H Hgb 16.4 H Hct 48.1 H Urine Ketones TRACE H Urine Urobilinogen 4.0 H - Diagnostic Test Radiology reviewed: Reports reviewed Discharge - Discharge Clinical Impression: Abdominal discomfort, epigastric, Wheezing Nausea and vomiting Qualifiers: Vomiting type: unspecified Vomiting Intractability: non-intractable Qualified Code(s): R11.2 - Nausea with vomiting, unspecified Condition: Good Disposition: HOME, SELF-CARE Additional Instructions: Your symptoms appear to be most consistent with stomach or upper intestinal irritation. Please begin taking famotidine 40 mg in the morning and 40 mg at night. This medicine can be purchased directly [id number]. You may also take medicine such as Pepto-Bismol or Tums to assist with your pain. Please return to emergency department immediately if you have worsening of your pain, shortness of breath, vomiting, become unable to exert yourself due to pain or difficulty breathing, you pass out, or have any pain that radiates into your arms, jaw, or back. Please also return if you have any additional symptoms that are concerning to you. As we have discussed, the most important thing is lifestyle changes. You need to avoid smoking, sodas, tea, coffee, alcohol, spicy foods, and acidic foods such as citrus fruits, tomato based products, berries, and most fruit juices. Prescriptions: Famotidine 40 mg PO BID #60 tablet Prednisone [Deltasone 20 mg Tablet] 3 tab PO DAILY 5 Days tablet Sucralfate [Carafate 1 gm Tablet] 1 gm PO ACHS #120 tablet Referrals: ILANA MAGDALENO MD [Primary Care Provider] - Follow up as needed
[2018-07-12 22:43] VITALS: BP 122/86
== END 2018-07-12 22:51 | disposition home or self-care (01) ==
LOC: ER 17:26
DX: R10.13 Epigastric pain (principal); R11.2 Nausea with vomiting, unspecified; R19.8 Other specified symptoms and signs involving the digestive system and abdomen; J44.9 Chronic obstructive pulmonary disease, unspecified; R06.02 Shortness of breath; Z90.49 Acquired absence of other specified parts of digestive tract; Z87.19 Personal history of other diseases of the digestive system
CPT/HCPCS: 94640; 99284; 36415; 83690; 85025; 80053; 81001; 74022; J3490; J7512; J7620

== ENCOUNTER 2018-07-16 18:41 | Emergency (ER) | payer OTHER ==
--- NOTE | 2018-07-16 19:26 | ER Document Report ---
ED Medical Screen (RME) - General Chief Complaint: Abdominal Pain Stated Complaint: SIDE PAIN Time Seen by Provider: 07/16/18 19:18 Mode of Arrival: Ambulatory Information source: Patient Notes: 62-year-old female presents the emergency department complaints of left flank pain and abdominal distention. Patient states that she was here on Sunday and diagnosed with gastritis. She says that this has not resolved. Patient states that she has also been constipated for the last 3 days. She states that she is passing gas. She states that she has been taking mag citrate and milk of magnesia without any relief of the constipation. Patient states that she is having intermittent nausea but denies vomiting. I have greeted and performed a rapid initial assessment of this patient. A comprehensive ED assessment and evaluation of the patient, analysis of test results and completion of the medical decision making process will be conducted by additional ED providers. PHYSICAL EXAMINATION: GENERAL: Well-appearing, well-nourished and in no acute distress. HEAD: Atraumatic, normocephalic. EYES: Pupils equal round extraocular movements intact, conjunctiva are normal. ENT: Nares patent NECK: Normal range of motion LUNGS: No respiratory distress Musculoskeletal: Normal range of motion NEUROLOGICAL: Normal speech, normal gait. PSYCH: Normal mood, normal affect. SKIN: Warm, Dry, normal turgor, no rashes or lesions noted. TRAVEL OUTSIDE OF THE [place] IN LAST 30 DAYS: No - Related Data Allergies/Adverse Reactions: No Known Allergies Allergy (Verified 05/25/18 18:43) Past Medical History - Social History Chew tobacco use (# tins/day): No Frequency of alcohol use: None Drug Abuse: None - Past Medical History Cardiac Medical History: Reports: Hx Atrial Fibrillation Denies: Hx Pulmonary Embolism Pulmonary Medical History: Reports: Hx Asthma, Hx COPD, Hx Pneumonia Denies: Hx Bronchitis, Hx Respiratory Failure, Hx Sleep Apnea, Hx Tuberculosis Endocrine Medical History: Denies: Hx Graves' Disease Renal/ Medical History: Denies: Hx End Stage Renal Disease, Hx Kidney Stones, Hx Ovarian Cysts, Hx Peritoneal Dialysis, Hx Pelvic Inflammatory Disease Malignancy Medical History: Denies: Hx Breast Cancer, Hx Cervical Cancer, Hx Lung Cancer, Hx Ovarian Cancer GI Medical History: Reports: Hx Gastroesophageal Reflux Disease, Hx Ulcer. Denies: Hx Crohn's Disease, Hx Hiatal Hernia, Hx Irritable Bowel, Hx Liver Failure, Hx Pancreatitis Musculoskeltal Medical History: Reports Hx Arthritis - HANDS, Denies Hx Fibromyalgia, Denies Hx Muscular Dystrophy Psychiatric Medical History: Reports: Hx Depression Denies: Hx Bipolar Disorder, Hx Post Traumatic Stress Disorder, Hx Schizophrenia Traumatic Medical History: Denies: Hx Fractures Past Surgical History: Reports: Hx Abdominal Surgery, Hx Gynecologic Surgery - fibroid removal, Hx Hysterectomy, Hx Tubal Ligation. Denies: Hx Appendectomy, Hx Bowel Surgery, Hx Section, Hx Cholecystectomy, Hx Colostomy, Hx Coronary Artery Bypass Graft, Hx Gastric Bypass Surgery, Hx Herniorrhaphy, Hx Mastectomy, Hx Pacemaker, Hx Tonsillectomy - Immunizations Hx Diphtheria, Pertussis, Tetanus Vaccination: Yes Physical Exam - Vital signs Vitals: Temp Pulse Resp BP Pulse Ox 98.8 F 105 H 24 H 121/90 H 95 07/16/18 18:50 07/16/18 18:50 07/16/18 18:50 07/16/18 18:50 07/16/18 18:50 Course - Vital Signs Vital signs: Temp Pulse Resp BP Pulse Ox 98.8 F 105 H 24 H 121/90 H 95 07/16/18 18:50 07/16/18 18:50 07/16/18 18:50 07/16/18 18:50 07/16/18 18:50 Doctor's Discharge - Discharge Referrals: ILANA MAGDALENO MD [Primary Care Provider] - Follow up as needed
[2018-07-16 20:03] LABS: ABSOLUTE EOSINOPHILS # (AUTO) 0.1 10^3/uL (0.0-0.6); ABSOLUTE LYMPHOCYTES (AUTO) 1.9 10^3/uL (0.5-4.7); ABSOLUTE MONOCYTES (AUTO) 0.8 10^3/uL (0.1-1.4); HEMOGLOBIN 15.5 g/dL (12.0-15.5); TOTAL CELLS COUNTED % (AUTO) 100 %
[2018-07-16 20:06] LABS: AMORPHOUS SEDIMENT,URINE TRACE /HPF; APPEARANCE,URINE CLOUDY; BILIRUBIN,URINE NEGATIVE (NEGATIVE); COLOR,URINE YELLOW; GLUCOSE, URINE NEGATIVE (NEGATIVE); KETONES,URINE NEGATIVE (NEGATIVE); LEUKOCYTE ESTERASE,URINE NEGATIVE (NEGATIVE); NITRITE,URINE NEGATIVE (NEGATIVE); PROTEIN,URINE NEGATIVE (NEGATIVE); URINE SPECIFIC GRAVITY 1.013; UROBILINOGEN,URINE NEGATIVE mg/dL (<2.0)
[2018-07-16 20:11] LABS: ABSOLUTE BASOPHILS # (AUTO) 0.1 10^3/uL (0.0-0.2); ABSOLUTE NEUT (AUTO) 4.1 10^3/uL (1.7-8.2); BASOPHILS % (AUTO) 0.8 % (0-2); EOSINOPHILS % (AUTO) 1.6 % (0-6); HEMATOCRIT 45.7 % (36.0-47.0); MEAN CORPUSCULAR HEMOGLOBIN 30.8 pg (27.0-33.4); MEAN CORPUSCULAR HGB CONC 33.9 g/dL (32.0-36.0); MEAN CORPUSCULAR VOLUME 91 fl (80-97); MONOCYTES % (AUTO) 11.5 % (3-13); PLATELET COUNT 241 10^3/uL (150-450); RED BLOOD COUNT 5.03 10^6/uL (3.72-5.28); RED CELL DISTRIBUTION WIDTH 13.5 % (11.5-14.0); SEGMENTED NEUTROPHILS % (AUTO) 59.1 % (42-78); WHITE BLOOD COUNT 6.9 10^3/uL (4.0-10.5)
--- NOTE | 2018-07-16 20:20 | RADIOLOGY REPORT (SQ) ---
EXAM DESCRIPTION: ACUTE ABDOMEN SERIES COMPLETED DATE/TIME: 07/16/2018 8:01 pm REASON FOR STUDY: abdominal pain COMPARISON: None. NUMBER OF VIEWS: Three views. TECHNIQUE: Frontal chest, supine abdomen and upright/decubitus abdomen radiographic images acquired. LIMITATIONS: None. FINDINGS: CHEST: Lungs clear of infiltrates. FREE AIR: None. No abnormal gas collections. BOWEL GAS PATTERN: Nonobstructive pattern. The stomach appears to be distended with considerable con tents. CALCIFICATIONS: No suspicious calcifications. HARDWARE: None in the abdomen. SOFT TISSUES: No gross mass or suggestion of organomegaly. BONES: No acute fracture. No worrisome bone lesions. OTHER: No other significant finding. IMPRESSION: Distended stomach. Nonspecific abdomen. TECHNICAL DOCUMENTATION: JOB ID: [id number] [email or web address]- All Rights Reserved Reading location - IP/workstation name: [email or web address]
[2018-07-16 20:22] LABS: ALANINE AMINOTRANSFERASE 22 U/L (9-52); ALBUMIN 3.9 g/dL (3.5-5.0); ALKALINE PHOSPHATASE 72 U/L (38-126); ANION GAP 7 (5-19); ASPARTATE AMINO TRANSFERASE 21 U/L (14-36); BILIRUBIN,DIRECT 0.3 mg/dL (0.0-0.4); BILIRUBIN,TOTAL 0.6 mg/dL (0.2-1.3); BLOOD UREA NITROGEN 12 mg/dL (7-20); CALCIUM 10.1 mg/dL (8.4-10.2); CARBON DIOXIDE 30 mmol/L (22-30); CHLORIDE 104 mmol/L (98-107); GLUCOSE 107 mg/dL (75-110); LIPASE 172.3 U/L (23-300); POTASSIUM 4.3 mmol/L (3.6-5.0); SODIUM 141.4 mmol/L (137-145); TOTAL PROTEIN 6.8 g/dL (6.3-8.2)
--- NOTE | 2018-07-16 23:51 | RADIOLOGY REPORT (SQ) ---
EXAM DESCRIPTION: CT ABDOMEN PELVIS WITH IV CONTRAST COMPLETED DATE/TME: 07/16/2018 00:00 CLINICAL HISTORY: Left flank pain. COMPARISON: None Available. TECHNIQUE: CT of the abdomen and pelvis performed following IV administration of iodinated contrast. DLP: 747.64 mGycm FINDINGS: Lung Bases: The visualized lung bases are clear. Bones: No destructive bone lesions identified. Abdomen: Liver: The liver has normal size and density. No intrahepatic mass or biliary dilatation. Gallbladder: No calcified gallstones. Spleen, Pancreas, and Adrenal Glands: The spleen, pancreas, and adrenal glands are unremarkable. Kidneys: The kidneys have normal size and contour without evidence of solid mass or hydronephrosis. Vasculature: The aorta and IVC have normal caliber and position. The portal vein is patent. The proximal visceral and renal arteries are patent. Stomach: Diffuse gastric distention without definite obstructing lesion identified. Mild fat stranding adjacent to the pylorus. Postoperative change at the gastroesophageal junction. Other: No free intraperitoneal air. No free fluid or lymphadenopathy. Pelvis: Bladder: Urinary bladder is unremarkable. Bowel: Surgical findings suggest prior partial colectomy. No dilated loops of large or small bowel. Appendix: No identified and likely surgically absent. Pelvis: Uterus is not enlarged. IMPRESSION: 1. Severe gastric distention of indeterminate etiology. No definite obstructing lesion identified. There is mild inflammatory change near the pylorus. These findings are nonspecific. Differential considerations include gastric/duodenal ulcer or gastritis, gastroparesis, gastric carcinoma, and abnormalities related to postoperative change. Correlation with endoscopy or upper GI could provide additional characterization. This exam was performed according to our departmental dose-optimization program, which includes automated exposure control, adjustment of the mA and/or kV according to patient size and/or use of iterative reconstruction technique.
--- NOTE | 2018-07-17 02:01 | ER Document Report ---
ED GI/ - General Chief Complaint: Abdominal Pain Stated Complaint: SIDE PAIN Time Seen by Provider: 07/16/18 19:18 Mode of Arrival: Ambulatory Information source: Patient Notes: Patient is a 62-year-old female comes emergency room complaining of abdominal distention. With some pain on the left side. Patient states she was seen here on Sunday night this past week was diagnosed with gastritis and sent home. She states that since Sunday she has not had a bowel movement and today her abdomen has swollen up and she is become bloated. States she last ate yesterday because she just does not feel hungry. When she eats she feels full or even on small amounts. Patient has a history of a hernia repair and appendectomy approximately 1 year ago and she is also had an upper EGD in the past year as well. Denies any nausea vomiting or diarrhea as she states she has been constipated since Sunday. Denies fever TRAVEL OUTSIDE OF THE [place] IN LAST 30 DAYS: No - HPI Patient complains to provider of: Other - Denies abdominal pain just feels bloated. No: Abdominal pain, Dysuria Onset: Other - 3 days Timing/Duration: Gradual, Persistent, Worse Quality of pain: Cramping Severity at maximum: Moderate Severity in ED: Moderate Pain Level: 3 Location: Other - Diffuse Sexual history: Inactive Associated symptoms: Constipation Exacerbated by: Denies Relieved by: Denies Similar symptoms previously: Yes Recently seen / treated by doctor: Yes - Related Data Allergies/Adverse Reactions: No Known Allergies Allergy (Verified 05/25/18 18:43) Past Medical History - General Information source: Patient - Social History Smoking Status: Current Every Day Smoker Cigarette use (# per day): Yes Chew tobacco use (# tins/day): No Smoking Education Provided: Yes Frequency of alcohol use: None Drug Abuse: None Family History: Reviewed & Not Pertinent Patient has suicidal ideation: No Patient has homicidal ideation: No - Past Medical History Cardiac Medical History: Reports: Hx Atrial Fibrillation Denies: Hx Pulmonary Embolism Pulmonary Medical History: Reports: Hx Asthma, Hx COPD, Hx Pneumonia Denies: Hx Bronchitis, Hx Respiratory Failure, Hx Sleep Apnea, Hx Tuberculosis Endocrine Medical History: Denies: Hx Graves' Disease Renal/ Medical History: Denies: Hx End Stage Renal Disease, Hx Kidney Stones, Hx Ovarian Cysts, Hx Peritoneal Dialysis, Hx Pelvic Inflammatory Disease Malignancy Medical History: Denies: Hx Breast Cancer, Hx Cervical Cancer, Hx Lung Cancer, Hx Ovarian Cancer GI Medical History: Reports: Hx Gastroesophageal Reflux Disease, Hx Ulcer. Denies: Hx Crohn's Disease, Hx Hiatal Hernia, Hx Irritable Bowel, Hx Liver Failure, Hx Pancreatitis Musculoskeletal Medical History: Reports Hx Arthritis - HANDS, Denies Hx Fibromyalgia, Denies Hx Muscular Dystrophy Psychiatric Medical History: Reports: Hx Depression Denies: Hx Bipolar Disorder, Hx Post Traumatic Stress Disorder, Hx Schizophrenia Traumatic Medical History: Denies: Hx Fractures Past Surgical History: Reports: Hx Abdominal Surgery, Hx Gynecologic Surgery - fibroid removal, Hx Hysterectomy, Hx Tubal Ligation. Denies: Hx Appendectomy, Hx Bowel Surgery, Hx Section, Hx Cholecystectomy, Hx Colostomy, Hx Coronary Artery Bypass Graft, Hx Gastric Bypass Surgery, Hx Herniorrhaphy, Hx Mastectomy, Hx Pacemaker, Hx Tonsillectomy - Immunizations Hx Diphtheria, Pertussis, Tetanus Vaccination: Yes Review of Systems - Review of Systems Constitutional: No symptoms reported EENT: No symptoms reported Cardiovascular: No symptoms reported Respiratory: No symptoms reported Gastrointestinal: Constipation, Other Genitourinary: No symptoms reported Female Genitourinary: No symptoms reported Musculoskeletal: No symptoms reported Skin: No symptoms reported Hematologic/Lymphatic: No symptoms reported Neurological/Psychological: No symptoms reported -: Yes All other systems reviewed and negative Physical Exam - Vital signs Vitals: Temp Pulse Resp BP Pulse Ox 98.8 F 105 H 24 H 121/90 H 95 07/16/18 18:50 07/16/18 18:50 07/16/18 18:50 07/16/18 18:50 07/16/18 18:50 Interpretation: Tachycardic - Notes Notes: Patient is a well-nourished well-developed 62-year-old female. She is in no apparent distress on physical examination. He does appear in slight discomfort. - General General appearance: Alert In distress: None - HEENT Head: Normocephalic, Atraumatic Eyes: Normal Conjunctiva: Normal Tympanic membrane: Normal Sinus: Normal Nasal: Normal Mouth/Lips: Normal Mucous membranes: Normal Pharynx: Normal. No: Peritonsillar abscess, Post nasal drainage, Retropharyngeal abscess, Tonsillar hypertrophy, Uvular edema, Potential airway comprom. Neck: Normal, Supple. No: Anterior cervical chain, Posterior cervical chain, Meningismus, Neck mass, Shotty nodes, Subcutaneous emphysema - Respiratory Respiratory status: No respiratory distress Chest status: Nontender Breath sounds: Normal Chest palpation: Normal - Cardiovascular Rhythm: Regular, Tachycardia Heart sounds: Normal auscultation Murmur: No - Abdominal Inspection: Normal Distension: Distended, Tympanitic. No: Fluid wave, Distended bladder, Other Bowel sounds: Normal Tenderness: Nontender. No: Tender, McBurney's point, Orosco's sign, Guarding, Rebound Organomegaly: No organomegaly - Back Back: Normal, Nontender. No: Deformity/step-off, CVA tenderness, Vertebra tenderness, Scars, Scoliosis, Wounds - Extremities General upper extremity: Normal inspection, Nontender, Normal ROM, Normal strength General lower extremity: Normal inspection, Nontender, Normal ROM, Normal strength, Normal weight bearing - Neurological Neuro grossly intact: Yes Cognition: Normal Orientation: AAOx4 [place] Coma Scale Eye Opening: Spontaneous Raymond Coma Scale Verbal: Oriented Raymond Coma Scale Motor: Obeys Commands Raymond Coma Scale Total: 15 Speech: Normal - Skin Skin Temperature: Warm Skin Moisture: Dry Skin Color: Normal, Knowles Course - Re-evaluation Re-evalutation: 07/17/18 02:05 I have checked on patient multiple times she is resting comfortably. Patient had a finding on her CT that is nonspecific could not find any noted bowel obstructions. Did not read that there was extensive amount of distention but no known or CT. Went back in and talk to patient and she feels like she wants to go home and try to take something to help her have a bowel movement. She states that if the pain gets worse or she is unable to eat without vomiting she will return to ER. - Vital Signs Vital signs: Temp Pulse Resp BP Pulse Ox 98.3 F 97 17 118/77 97 07/17/18 00:10 07/17/18 00:10 07/17/18 00:10 07/17/18 00:10 07/17/18 00:10 - Laboratory Result Diagrams: 07/16/18 19:42 07/16/18 19:42 Discharge - Discharge Clinical Impression: Abdominal distention Abdominal pain Qualifiers: Abdominal location: generalized Qualified Code(s): R10.84 - Generalized abdominal pain Disposition: HOME, SELF-CARE Instructions: Abdominal Pain ([facility]) Additional Instructions: Home and rest. You may attempt to use the milk of magnesia as we discussed. Generic is as good as name brand. A comes with a shot glass type of a measuring cup on the bottle. Tonight before bed drink 2 of those shot glass full followed by 12 ounces of warm tap water. In the morning when you wake up drink coffee or tea it was stimulated to have a nice fluid bowel movement. As we discussed if you should have increasing pain or inability to eat without throwing up return to ER at once. I have given you the name of the medical writer personal lines agent for us [facility]. You may contact his office in the morning to see if he can accommodate you. You may also contact your primary doctor to see if he would like to see you in the office as well. Should you have increasing discomfort and or are unable to get to 1 of these doctors you wish to return for me to reevaluate you tomorrow evening I am on from 7 PM to 7 AM tomorrow night again. My name is Jim Cuevas and you may ask for me if you wish to. Again should he have any other concerns or worsening of your symptoms prior to that return to ER for a recheck then. Forms: Smoking Cessation Education Referrals: ILANA MAGDALENO MD [Primary Care Provider] - Follow up as needed FELIPE TERRY MD [ACTIVE STAFF] - Follow up as needed
[2018-07-17 02:26] VITALS: BP 103/82
[2018-07-17] MEDS ORDERED: IPRATROPIUM/ALBUTEROL 0.5-2.5 MG/3 ML AMPUL NEB ONE (02:30)
== END 2018-07-17 02:50 | disposition home or self-care (01) ==
LOC: ER 18:41
DX: R14.0 Abdominal distension (gaseous) (principal); K59.00 Constipation, unspecified; R10.84 Generalized abdominal pain; J44.9 Chronic obstructive pulmonary disease, unspecified; R63.0 Anorexia; F17.210 Nicotine dependence, cigarettes, uncomplicated; Z90.49 Acquired absence of other specified parts of digestive tract; Z87.19 Personal history of other diseases of the digestive system
CPT/HCPCS: 94640; 99284; 36415; 83690; 85025; 80053; 81001; 74022; 74177; J7620

== ENCOUNTER 2018-08-10 13:10 | Emergency (ER) | payer OTHER ==
[2018-08-10] MEDS ORDERED: PREDNISONE 20 MG TABLET PO ONE (13:30)
[2018-08-10] MEDS ORDERED: IPRATROPIUM/ALBUTEROL 0.5-2.5 MG/3 ML AMPUL NEB ONE (13:30)
--- NOTE | 2018-08-10 13:34 | ER Document Report ---
ED Medical Screen (RME) - General Chief Complaint: Asthma Exacerbation Stated Complaint: BREATHING DIFFICULTY Time Seen by Provider: 08/10/18 13:27 Notes: 62-year-old female patient with history of allergic asthma and COPD who continues to smoke. Onset 1-2 days of increasing wheezing difficulty breathing. Nonproductive cough. No fever. She takes Brio and Spiriva. She saw Dr. Gar on 08/01/2018, was prescribed prednisone 10 mg once daily for 5 days. She was told if that did not work she would need to come to the emergency room to get a shot for her asthma. She was also on prednisone 60 mg daily for 5 days prescribed in the emergency room on 07/13/2018. I have greeted and performed a rapid initial assessment of this patient. A comprehensive ED assessment and evaluation of the patient, analysis of test results and completion of the medical decision making process will be conducted by additional ED providers. TRAVEL OUTSIDE OF THE [place] IN LAST 30 DAYS: No - Related Data Allergies/Adverse Reactions: No Known Allergies Allergy (Verified 08/10/18 13:29) Past Medical History - Social History Chew tobacco use (# tins/day): No Frequency of alcohol use: None Drug Abuse: None - Past Medical History Cardiac Medical History: Reports: Hx Atrial Fibrillation Denies: Hx Pulmonary Embolism Pulmonary Medical History: Reports: Hx Asthma, Hx COPD, Hx Pneumonia Denies: Hx Bronchitis, Hx Respiratory Failure, Hx Sleep Apnea, Hx Tuberculosis Endocrine Medical History: Denies: Hx Graves' Disease Renal/ Medical History: Denies: Hx End Stage Renal Disease, Hx Kidney Stones, Hx Ovarian Cysts, Hx Peritoneal Dialysis, Hx Pelvic Inflammatory Disease Malignancy Medical History: Denies: Hx Breast Cancer, Hx Cervical Cancer, Hx Lung Cancer, Hx Ovarian Cancer GI Medical History: Reports: Hx Gastroesophageal Reflux Disease, Hx Ulcer. Denies: Hx Crohn's Disease, Hx Hiatal Hernia, Hx Irritable Bowel, Hx Liver Failure, Hx Pancreatitis Musculoskeltal Medical History: Reports Hx Arthritis - HANDS, Denies Hx Fibromyalgia, Denies Hx Muscular Dystrophy Psychiatric Medical History: Reports: Hx Depression Denies: Hx Bipolar Disorder, Hx Post Traumatic Stress Disorder, Hx Schizophrenia Traumatic Medical History: Denies: Hx Fractures Past Surgical History: Reports: Hx Abdominal Surgery, Hx Gynecologic Surgery - fibroid removal, Hx Hysterectomy, Hx Tubal Ligation. Denies: Hx Appendectomy, Hx Bowel Surgery, Hx Section, Hx Cholecystectomy, Hx Colostomy, Hx Coronary Artery Bypass Graft, Hx Gastric Bypass Surgery, Hx Herniorrhaphy, Hx Mastectomy, Hx Pacemaker, Hx Tonsillectomy - Immunizations Hx Diphtheria, Pertussis, Tetanus Vaccination: Yes Physical Exam - Vital signs Vitals: Temp Pulse Resp BP Pulse Ox 98.6 F 112 H 28 H 119/91 H 97 08/10/18 13:15 08/10/18 13:15 08/10/18 13:15 08/10/18 13:15 08/10/18 13:15 Course - Vital Signs Vital signs: Temp Pulse Resp BP Pulse Ox 98.6 F 112 H 28 H 119/91 H 97 08/10/18 13:15 08/10/18 13:15 08/10/18 13:15 08/10/18 13:15 08/10/18 13:15 Doctor's Discharge - Discharge Referrals: NUBIA GAR MD [Primary Care Provider] - Follow up as needed
[2018-08-10 13:56] LABS: ABSOLUTE EOSINOPHILS # (AUTO) 0.2 10^3/uL (0.0-0.6); ABSOLUTE LYMPHOCYTES (AUTO) 1.5 10^3/uL (0.5-4.7); ABSOLUTE MONOCYTES (AUTO) 0.5 10^3/uL (0.1-1.4); ABSOLUTE NEUT (AUTO) 2.3 10^3/uL (1.7-8.2); BASOPHILS % (AUTO) 0.9 % (0-2); EOSINOPHILS % (AUTO) 3.7 % (0-6); HEMATOCRIT 46.2 % (36.0-47.0); HEMOGLOBIN 15.5 g/dL (12.0-15.5); LYMPHOCYTES % (AUTO) 33.5 % (13-45); MEAN CORPUSCULAR HEMOGLOBIN 30.8 pg (27.0-33.4); MEAN CORPUSCULAR HGB CONC 33.7 g/dL (32.0-36.0); MEAN CORPUSCULAR VOLUME 91 fl (80-97); MONOCYTES % (AUTO) 11.1 % (3-13); PLATELET COUNT 206 10^3/uL (150-450); RED BLOOD COUNT 5.05 10^6/uL (3.72-5.28); RED CELL DISTRIBUTION WIDTH 13.7 % (11.5-14.0); SEGMENTED NEUTROPHILS % (AUTO) 50.8 % (42-78); TOTAL CELLS COUNTED % (AUTO) 100 %; WHITE BLOOD COUNT 4.5 10^3/uL (4.0-10.5)
[2018-08-10 14:12] LABS: ALANINE AMINOTRANSFERASE 21 U/L (9-52); ALBUMIN 3.8 g/dL (3.5-5.0); ALKALINE PHOSPHATASE 83 U/L (38-126); ANION GAP 9 (5-19); ASPARTATE AMINO TRANSFERASE 20 U/L (14-36); BILIRUBIN,DIRECT 0.3 mg/dL (0.0-0.4); BILIRUBIN,TOTAL 0.4 mg/dL (0.2-1.3); BLOOD UREA NITROGEN 6 mg/dL (7-20); CALCIUM 9.7 mg/dL (8.4-10.2); CARBON DIOXIDE 25 mmol/L (22-30); CHLORIDE 108 mmol/L (98-107); GLUCOSE 92 mg/dL (75-110); POTASSIUM 4.4 mmol/L (3.6-5.0); SODIUM 142.4 mmol/L (137-145); TOTAL PROTEIN 6.6 g/dL (6.3-8.2)
--- NOTE | 2018-08-10 14:35 | ER Document Report ---
ED General - General Chief Complaint: Asthma Exacerbation Stated Complaint: BREATHING DIFFICULTY Time Seen by Provider: 08/10/18 13:27 Notes: Patient is a 62-year-old female with COPD and asthma that presents to the emergency department for chief complaint of shortness of breath and wheezing. Patient reports that she has been having worsening of her COPD symptoms over the last week, she recently was on prednisone 20 mg daily last week, but her symptoms did not significantly improve, and were definitely worse over the last 2 days. She is been using her nebulizer, as well as her home inhaled corticosteroids, without improvement. She denies noting any chest pain, fevers , chills, cough, nausea or vomiting. She is not on home oxygen. Past Medical History: COPD, asthma Past Surgical History: Appendectomy Social History: Admits to smoking cigarettes daily, denies alcohol or drug use Family History: Reviewed and noncontributory for presenting illness Allergies: Reviewed, see documented allergy list. REVIEW OF SYSTEMS: Other than noted above, the 12 point review of systems was reviewed with the patient and were negative, all pertinent findings are included in the HPI. PHYSICAL EXAMINATION: Vital signs reviewed, nursing noted reviewed. GENERAL: Well-appearing, well-nourished and in no acute distress. HEAD: Atraumatic, normocephalic. EYES: Eyes appear normal, extraocular movements intact, sclera anicteric, conjunctiva are normal. ENT: nares patent, oropharynx clear without exudates. Moist mucous membranes. NECK: Normal range of motion, supple without lymphadenopathy LUNGS: Breath sounds clear to auscultation bilaterally and equal. Mild expiratory wheezing noted throughout all lung banda, no respiratory distress HEART: Regular rate and rhythm without murmurs ABDOMEN: Soft, nontender, normoactive bowel sounds. No rebound, guarding, or rigidity. No masses appreciated. EXTREMITIES: Nontender, good range of motion, no pitting or edema. NEUROLOGICAL: No focal neurological deficits. Moves all extremities spontaneously Motor and sensory grossly intact on exam. PSYCH: Normal mood, normal affect. SKIN: Warm, Dry, normal turgor, no rashes or lesions noted on exposed skin TRAVEL OUTSIDE OF THE [place] IN LAST 30 DAYS: No - Related Data Allergies/Adverse Reactions: No Known Allergies Allergy (Verified 08/10/18 13:29) Past Medical History - Social History Smoking Status: Current Some Day Smoker Chew tobacco use (# tins/day): No Frequency of alcohol use: None Drug Abuse: None Family History: Reviewed & Not Pertinent Patient has suicidal ideation: No Patient has homicidal ideation: No - Past Medical History Cardiac Medical History: Reports: Hx Atrial Fibrillation Denies: Hx Pulmonary Embolism Pulmonary Medical History: Reports: Hx Asthma, Hx COPD, Hx Pneumonia Denies: Hx Bronchitis, Hx Respiratory Failure, Hx Sleep Apnea, Hx Tuberculosis Endocrine Medical History: Denies: Hx Graves' Disease Renal/ Medical History: Denies: Hx End Stage Renal Disease, Hx Kidney Stones, Hx Ovarian Cysts, Hx Peritoneal Dialysis, Hx Pelvic Inflammatory Disease Malignancy Medical History: Denies: Hx Breast Cancer, Hx Cervical Cancer, Hx Lung Cancer, Hx Ovarian Cancer GI Medical History: Reports: Hx Gastroesophageal Reflux Disease, Hx Ulcer. Denies: Hx Crohn's Disease, Hx Hiatal Hernia, Hx Irritable Bowel, Hx Liver Failure, Hx Pancreatitis Musculoskeletal Medical History: Reports Hx Arthritis - HANDS, Denies Hx Fibromyalgia, Denies Hx Muscular Dystrophy Psychiatric Medical History: Reports: Hx Depression Denies: Hx Bipolar Disorder, Hx Post Traumatic Stress Disorder, Hx Schizophrenia Traumatic Medical History: Denies: Hx Fractures Past Surgical History: Reports: Hx Abdominal Surgery, Hx Gynecologic Surgery - fibroid removal, Hx Hysterectomy, Hx Tubal Ligation. Denies: Hx Appendectomy, Hx Bowel Surgery, Hx Section, Hx Cholecystectomy, Hx Colostomy, Hx Coronary Artery Bypass Graft, Hx Gastric Bypass Surgery, Hx Herniorrhaphy, Hx Mastectomy, Hx Pacemaker, Hx Tonsillectomy - Immunizations Hx Diphtheria, Pertussis, Tetanus Vaccination: Yes Physical Exam - Vital signs Vitals: Temp Pulse Resp BP Pulse Ox 98.6 F 112 H 28 H 119/91 H 97 08/10/18 13:15 08/10/18 13:15 08/10/18 13:15 08/10/18 13:15 08/10/18 13:15 Course - Re-evaluation Re-evalutation: Patient seen and examined vital signs reviewed. Laboratory data and imaging were ordered as appropriate for the patient's presenting symptoms and complaint, with consideration of any critical or life threatening conditions that may be associated with their obtained history and exam as noted above. Patient was treated with oral prednisone 60 mg, and do not breathing treatment Results were reviewed when available and demonstrated negative chest x-ray, unremarkable blood work The patient was re-evaluated and was improved, and felt comfortable being discharged, she is not hypoxic Evaluation was most consistent with acute exacerbation of COPD, I feel the patient can be discharged, will prescribe prednisone 60 mg daily, encouraged her to continue using her prescribed medications, and to follow-up with her sales assistant as scheduled on the , and to discuss possible sleep apnea as she has had some of these symptoms at home. Results were discussed with the patient at this point, after careful consideration I feel that that patient can be discharged from the emergency department, the patient was educated treatments and reasons to return to the emergency department based on their presumed diagnosis as noted above, they were advised to followup with a primary care physician in 2-3 days. Patient was agreeable to plan of care. *Note is created using voice recognition software and may contain spelling, syntax or grammatical errors. Laboratory 08/10/18 08/10/18 13:40 13:40 WBC 4.5 RBC 5.05 Hgb 15.5 Hct 46.2 MCV 91 MCH 30.8 MCHC 33.7 RDW 13.7 Plt Count 206 Seg Neutrophils % 50.8 Lymphocytes % 33.5 Monocytes % 11.1 Eosinophils % 3.7 Basophils % 0.9 Absolute Neutrophils 2.3 Absolute Lymphocytes 1.5 Absolute Monocytes 0.5 Absolute Eosinophils 0.2 Absolute Basophils 0.0 Sodium 142.4 Potassium 4.4 Chloride 108 H Carbon Dioxide 25 Anion Gap 9 BUN 6 L Creatinine 0.74 Est GFR ( Amer) > 60 Est GFR (Non-Af Amer) > 60 Glucose 92 Calcium 9.7 Total Bilirubin 0.4 Direct Bilirubin 0.3 Neonat Total Bilirubin Not Reportable Neonat Direct Bilirubin Not Reportable Neonat Indirect Bili Not Reportable AST 20 ALT 21 Alkaline Phosphatase 83 Total Protein 6.6 Albumin 3.8 - Vital Signs Vital signs: Temp Pulse Resp BP Pulse Ox 98.6 F 112 H 28 H 119/91 H 97 08/10/18 13:15 08/10/18 13:15 08/10/18 13:15 08/10/18 13:15 08/10/18 13:15 - Laboratory Result Diagrams: 08/10/18 13:40 08/10/18 13:40 Laboratory results interpreted by me: 08/10/18 13:40 Chloride 108 H BUN 6 L - Diagnostic Test Radiology reviewed: Image reviewed Discharge - Discharge Clinical Impression: Acute exacerbation of chronic obstructive pulmonary disease (COPD) Condition: Stable Disposition: HOME, SELF-CARE Instructions: Chronic Obstructive Lung Disease ([facility]) Additional Instructions: Please return to the emergency department if you have any worsening, or concern of your symptoms. Please return to the emergency department if you develop chest pain, difficulty breathing, severe abdominal pain, or ongoing vomiting. Please follow-up with your primary care physician in 2-3 days and any other recommended physicians. If prescribed, take all medications as directed. If you have any questions or concerns do not hesitate to return the emergency department for evaluation. Please follow-up with your sales assistant as scheduled, and discuss possible sleep apnea evaluation. Prescriptions: Prednisone [Deltasone 20 mg Tablet] 3 tab PO DAILY 5 Days #15 tablet Referrals: NUBIA GAR MD [Primary Care Provider] - Follow up in 3-5 days
--- NOTE | 2018-08-10 15:02 | RADIOLOGY REPORT (SQ) ---
EXAM DESCRIPTION: CHEST 2 VIEWS COMPLETED DATE/TIME: 08/10/2018 2:21 pm REASON FOR STUDY: COPD exacerbation, chest tightness COMPARISON: 05/25/2018 EXAM PARAMETERS: NUMBER OF VIEWS: two views TECHNIQUE: Digital Frontal and Lateral radiographic views of the chest acquired. RADIATION DOSE: NA LIMITATIONS: none FINDINGS: LUNGS AND PLEURA: Mild flattening of the hemidiaphragms. No opacities, masses or pneumoth orax. No pleural effusion. MEDIASTINUM AND HILAR STRUCTURES: No masses or contour abnormalities. HEART AND VASCULAR STRUCTURES: Heart normal size. No evidence for failure. Calcifications of the ao rtic knob. BONES: No acute findings. HARDWARE: None in the chest. Metallic clips in the epigastric region. Suture anchor projects over t he right humeral head. OTHER: No other significant finding. IMPRESSION: NO ACUTE RADIOGRAPHIC FINDING IN THE CHEST. TECHNICAL DOCUMENTATION: JOB ID: [id number] [employer]- All Rights Reserved Reading location - IP/workstation name: [email or web address]
[2018-08-10 15:12] VITALS: BP 119/85
== END 2018-08-10 15:15 | disposition home or self-care (01) ==
LOC: ER 13:10
DX: J44.1 Chronic obstructive pulmonary disease with (acute) exacerbation (principal); F17.200 Nicotine dependence, unspecified, uncomplicated; I48.91 Unspecified atrial fibrillation; Z90.710 Acquired absence of both cervix and uterus
CPT/HCPCS: 94640; 99285; 36415; 85025; 80053; 71046; J7512; J7620

== ENCOUNTER → 2018-09-10 | Outpatient (CLI) | payer OTHER ==
--- NOTE | 2018-09-10 13:44 | RADIOLOGY REPORT (SQ) ---
EXAM DESCRIPTION: CT CHEST WITHOUT COMPLETED DATE/TIME: 09/10/2018 9:35 am REASON FOR STUDY: PULMONARY INFILTRATE R91.8 OTHER NONSPECIFIC ABNORMAL FINDING OF LUNG FIELD COMPARISON: CT-CTA chest examination dated 04/24/2017 TECHNIQUE: CT scan performed of the chest without intravenous contrast. Images reviewed with lung, soft tissue and bone windows. Reconstructed coronal and sagittal MPR images reviewed. All images st ored on PACS. All CT scanners at this facility use dose modulation, iterative reconstruction, and/or weight based d osing when appropriate to reduce radiation dose to as low as reasonably achievable (ALARA). [facility]: Dose Right [facility]: CareDose [facility]: Dose Right [facility]: Teradose 4D [facility]: Smart Knimbus RADIATION DOSE: Total exam DLP: 190.19 mGy. LIMITATIONS: No technical limitations. FINDINGS: LUNGS AND PLEURA: Emphysematous changes in the lungs, unchanged finding. Stable small gr ound-glass 4-5 mm nodule in the left upper lobe, axial image 27, series 4. Small solid 2-3 mm nodule in the periphery of the right apex-right upper lobe, axial image 18, series 4 Stable minimal pleural nodularity. Mild thickening of the bronchial varghese, stable findings. No pneumothorax or pleural ef fusion. The central airways are clear. HILAR AND MEDIASTINAL STRUCTURES: No significant interval changes. HEART AND VASCULAR STRUCTURES: Atherosclerotic changes involving the thoracic aorta. Coronary arter y calcifications. No aneurysm. No pericardial effusion. UPPER ABDOMEN: No significant interval changes. Limited exam. THYROID AND OTHER SOFT TISSUES: Stable appearance to the thyroid gland which is heterogenous in appe arance. The hypoattenuated nodule in the right lobe is unchanged. BONES: The osseous structures are stable in appearance. HARDWARE: None in the chest. OTHER: No other significant findings. IMPRESSION: 1. NO SIGNIFICANT interval changes since the previous CT-CTA chest examination dated 04/01. Emphysematous changes in the lungs, stable findings. 2. Stable small subcentimeter ground-glass nodule in the left upper lobe and solid nodule in the rig ht apex-upper lobe. TECHNICAL DOCUMENTATION: JOB ID: [id number] Quality ID # [id number]: Final reports with documentation of one or more dose reduction techniques (e.g., Au tomated exposure control, adjustment of the mA and/or kV according to patient size, use of iterative reconstruction technique) 2010 [employer]- All Rights Reserved Reading location - IP/workstation name: [email or web address]
== END ==
LOC: RAD 09:22
PROVIDERS: ATTEND Internal Medicine Critical Care Medicine
DX: R91.8 Other nonspecific abnormal finding of lung field (principal)
CPT/HCPCS: 71250

== ENCOUNTER 2019-05-22 18:08 | Emergency (ER) | payer OTHER ==
--- NOTE | 2019-05-22 18:22 | ER Document Report ---
HPI - HPI Time Seen by Provider: 05/22/19 18:21 Pain Level: 1 - REPRODUCTIVE Reproductive: DENIES: : Past Medical History - General Information source: Patient - Social History Smoking Status: Unknown if Ever Smoked Family History: Reviewed & Not Pertinent - Past Medical History Cardiac Medical History: Reports: Hx Atrial Fibrillation Denies: Hx Coronary Artery Disease, Hx Heart Attack, Hx Hypertension, Hx Pulmonary Embolism Pulmonary Medical History: Reports: Hx Asthma, Hx COPD, Hx Pneumonia Denies: Hx Bronchitis, Hx Respiratory Failure, Hx Sleep Apnea, Hx Tuberculosis Neurological Medical History: Denies: Hx Cerebrovascular Accident, Hx Seizures Endocrine Medical History: Denies: Hx Graves' Disease Renal/ Medical History: Denies: Hx End Stage Renal Disease, Hx Kidney Stones, Hx Ovarian Cysts, Hx Peritoneal Dialysis, Hx Pelvic Inflammatory Disease Malignancy Medical History: Denies: Hx Breast Cancer, Hx Cervical Cancer, Hx Lung Cancer, Hx Ovarian Cancer GI Medical History: Reports: Hx Gastroesophageal Reflux Disease, Hx Ulcer. Denies: Hx Crohn's Disease, Hx Hiatal Hernia, Hx Irritable Bowel, Hx Liver Failure, Hx Pancreatitis Musculoskeletal Medical History: Reports Hx Arthritis - HANDS, Denies Hx Fibromyalgia, Denies Hx Muscular Dystrophy, Denies Hx Systemic Lupus Erythematosus Psychiatric Medical History: Reports: Hx Depression Denies: Hx Bipolar Disorder, Hx Post Traumatic Stress Disorder, Hx Schizophrenia Traumatic Medical History: Denies: Hx Fractures Past Surgical History: Reports: Hx Abdominal Surgery, Hx Gynecologic Surgery - fibroid removal, Hx Hysterectomy, Hx Tubal Ligation. Denies: Hx Appendectomy, Hx Bowel Surgery, Hx Section, Hx Cholecystectomy, Hx Colostomy, Hx Coronary Artery Bypass Graft, Hx Gastric Bypass Surgery, Hx Herniorrhaphy, Hx Mastectomy, Hx Pacemaker, Hx Tonsillectomy - Immunizations Hx Diphtheria, Pertussis, Tetanus Vaccination: Yes Vertical Provider Document - CONSTITUTIONAL Agree With Documented VS: Yes Exam Limitations: No Limitations General Appearance: WD/WN Notes: PHYSICAL EXAMINATION: GENERAL: Well-appearing, well-nourished and in no acute distress. HEAD: Atraumatic, normocephalic. EYES: Pupils equal round and reactive to light, extraocular movements intact, conjunctiva are normal. ENT: Nares patent, oropharynx clear without exudates. Moist mucous membranes. NECK: Normal range of motion, supple without lymphadenopathy LUNGS: Breath sounds clear to auscultation bilaterally and equal. No wheezes rales or rhonchi. HEART: Regular rate and rhythm without murmurs ABDOMEN: Soft, nontender, nondistended abdomen. No guarding, no rebound. No masses appreciated. Female : deferred Musculoskeletal: Normal range of motion, no pitting or edema. No cyanosis. left lateral posterior ankle with swelling, tenderness that radiates to left heel. pain with inversion. squeeze test negative. dtr +2 BLE. Limited APROM. distal pulses + 2 BLE equally. Full motor and sensory function of bilateral lower extremities. No noted open wounds or abrasion. Normal gait. No vascular compromise. Peroneal nerve is intact with strong eversion and plantar flexion. Negative anterior drawer test. NEUROLOGICAL: Cranial nerves grossly intact. Normal speech, normal gait. Normal sensory, motor exams PSYCH: Normal mood, normal affect. SKIN: Warm, Dry, normal turgor, no rashes or lesions noted. Scant erythema slightly to left lateral posterior ankle approximately 0.5 cm x 0.5 cm - INFECTION CONTROL TRAVEL OUTSIDE OF THE [place] IN LAST 30 DAYS: No Course - Re-evaluation Re-evalutation: 05/22/19 20:13 Afebrile, slightly tachycardic however patient states that she took her COPD medication and inhaler which can make her slightly tachycardic, [place] controlled substance website evaluated, patient is not any current stimulants. Patient thinks she may have been bitten by a bug, area without erythema induration, scant swelling. X-ray of left ankle is NAD per this read. Will prescribe 5 days of Keflex twice daily for 5 days, apply heat 20 minutes on 20 minutes off several times a day.Patient presents with symptoms most consistent with an acute cellulitis. Vitals within normal limits. Patient does not meet sepsis criteria is overall very well in appearance. Exam and history are not consistent with DVT. At this time will discharge with return precautions and follow-up recommendations. Verbal discharge instructions given a the bedside and opportunity for questions given. Medication warnings reviewed. Patient is in agreement with this plan and has verbalized understanding of return precautions and the need for primary care follow-up in the next 24-72 hours. - Vital Signs Vital signs: Temp Pulse Resp BP Pulse Ox 98.5 F 118 H 15 129/77 H 93 05/22/19 18:16 05/22/19 18:16 05/22/19 18:16 05/22/19 18:16 05/22/19 18:16 Discharge - Discharge Clinical Impression: Left ankle pain, Cellulitis Condition: Stable Disposition: HOME, SELF-CARE Instructions: Cellulitis ([facility]) Additional Instructions: Take antibiotic as directed. X-ray was negative, no foreign body fracture dislocation. Follow-up with web specialist as needed . Follow-up with your primary care provider within 3 days. Apply heat 20 minutes on 20 minutes off several times a day. Return immediately for any new or worsening symptoms. Follow up with primary care provider, call tomorrow to make followup appointment. Prescriptions: Cephalexin Monohydrate [Keflex 500 mg Capsule] 500 mg PO BID #10 capsule Referrals: ILANA MAGDALENO MD [Primary Care Provider] - Follow up as needed
[2019-05-22 19:32] VITALS: BP 103/72
--- NOTE | 2019-05-22 20:47 | RADIOLOGY REPORT (SQ) ---
EXAM DESCRIPTION: Left ankle RadLex: XR ANKLE 3 OR MORE VIEWS Views: 3 CLINICAL HISTORY: 63 years Female, left ankle pain COMPARISON: None. FINDINGS: Negative for acute fracture, dislocation, or radiopaque foreign body. IMPRESSION: 1. No acute findings.
== END 2019-05-22 20:52 | disposition home or self-care (01) ==
LOC: ER 18:08
DX: L03.90 Cellulitis, unspecified (principal); M25.572 Pain in left ankle and joints of left foot; M25.472 Effusion, left ankle; J44.9 Chronic obstructive pulmonary disease, unspecified; R00.0 Tachycardia, unspecified; Z79.899 Other long term (current) drug therapy

== ENCOUNTER 2019-08-09 13:46 | Observation (INO) | payer OTHER ==
[2019-08-09] MEDS ORDERED: METHYLPREDNISOLONE INJ 125 MG/2 ML SDV IV ONE (14:46)
[2019-08-09] MEDS ORDERED: IPRATROPIUM/ALBUTEROL 0.5-2.5 MG/3 ML AMPUL NEB ONE ×2 (14:46→17:48)
--- NOTE | 2019-08-09 14:47 | ER Document Report ---
ED Respiratory Problem - General Chief Complaint: Breathing Difficulty Stated Complaint: TROUBLE BREATHING Time Seen by Provider: 08/09/19 14:34 Primary Care Provider: ILANA MAGDALENO MD [Primary Care Provider] - Follow up as needed TRAVEL OUTSIDE OF THE [place] IN LAST 30 DAYS: No - HPI Notes: 63-year-old female with history of COPD to the emergency department via EMS with complaints of progressively worsening shortness of breath since last night. She states that she woke up about 4 AM feeling very tight in her chest and took a breathing treatment. She states that she continued to have episodes of waking up and feeling like her chest was tight. She states that she is taken several breathing treatments prior to calling EMS. She was given 2 breathing treatments by EMS she states she feels a little bit better but still feels like she has chest tightness and shortness of breath. She does have a history of hospitalization from her COPD and reports that she was on a ventilator last year for it. She denies any fevers or chills. She states she is only coughing after she gives herself a breathing treatment. She denies any diaphoresis, nausea, vomiting, passing out, abdominal pain. She states she is on oxygen at home. She is concerned because the chest tightness feels different to her today. She still smokes and she states she takes about 4 to 5 cigarettes a day. She also uses Breo and Spiriva daily. She states that she took a magnesium oxide tablet last night in hopes that it might improve her COPD as well. She also is on 5 mg of prednisone daily. - Related Data Allergies/Adverse Reactions: No Known Allergies Allergy (Verified 05/22/19 18:12) Past Medical History - General Information source: Patient, Relative - Social History Smoking Status: Current Every Day Smoker Frequency of alcohol use: None Drug Abuse: None Lives with: Family Family History: Reviewed & Not Pertinent - Past Medical History Cardiac Medical History: Reports: Hx Atrial Fibrillation Denies: Hx Coronary Artery Disease, Hx Heart Attack, Hx Hypertension, Hx Pulmonary Embolism Pulmonary Medical History: Reports: Hx Asthma, Hx COPD, Hx Pneumonia Denies: Hx Bronchitis, Hx Respiratory Failure, Hx Sleep Apnea, Hx Tuberculosis Neurological Medical History: Denies: Hx Cerebrovascular Accident, Hx Seizures Endocrine Medical History: Denies: Hx Graves' Disease Renal/ Medical History: Denies: Hx End Stage Renal Disease, Hx Kidney Stones, Hx Ovarian Cysts, Hx Peritoneal Dialysis, Hx Pelvic Inflammatory Disease Malignancy Medical History: Denies: Hx Breast Cancer, Hx Cervical Cancer, Hx Lung Cancer, Hx Ovarian Cancer GI Medical History: Reports: Hx Gastroesophageal Reflux Disease, Hx Ulcer. Denies: Hx Crohn's Disease, Hx Hiatal Hernia, Hx Irritable Bowel, Hx Liver Failure, Hx Pancreatitis Musculoskeletal Medical History: Reports Hx Arthritis - HANDS, Denies Hx Fibromyalgia, Denies Hx Muscular Dystrophy, Denies Hx Systemic Lupus Erythematosus Psychiatric Medical History: Reports: Hx Depression Denies: Hx Bipolar Disorder, Hx Post Traumatic Stress Disorder, Hx Schizophrenia Traumatic Medical History: Denies: Hx Fractures Past Surgical History: Reports: Hx Abdominal Surgery, Hx Gynecologic Surgery - fibroid removal, Hx Hysterectomy, Hx Tubal Ligation. Denies: Hx Appendectomy, Hx Bowel Surgery, Hx Section, Hx Cholecystectomy, Hx Colostomy, Hx Coronary Artery Bypass Graft, Hx Gastric Bypass Surgery, Hx Herniorrhaphy, Hx Mastectomy, Hx Pacemaker, Hx Tonsillectomy - Immunizations Hx Diphtheria, Pertussis, Tetanus Vaccination: Yes Review of Systems - Review of Systems Constitutional: denies: Chills, Fever EENT: No symptoms reported. denies: Ear pain, Nose congestion, Sinus discharge Cardiovascular: See HPI. denies: Palpitations, Orthopnea, Dyspnea, Syncope, Dizziness, Lightheaded Respiratory: Cough, Short of breath, Wheezing. denies: Hurts to breathe, Sputum, Stridor Gastrointestinal: denies: Abdominal pain, Diarrhea, Nausea, Vomiting Genitourinary: No symptoms reported Female Genitourinary: No symptoms reported Musculoskeletal: No symptoms reported Skin: No symptoms reported Hematologic/Lymphatic: No symptoms reported Neurological/Psychological: No symptoms reported -: Yes All other systems reviewed and negative Physical Exam - Vital signs Vitals: Temp Pulse Resp BP Pulse Ox 98.8 F 99 28 H 122/84 96 08/09/19 13:50 08/09/19 13:50 08/09/19 13:50 08/09/19 13:50 08/09/19 13:50 Interpretation: Normal - General General appearance: Appears well, Alert In distress: None - HEENT Head: Normocephalic, Atraumatic Eyes: Normal Pupils: PERRL Ears: Normal External canal: Normal Tympanic membrane: Normal Sinus: Normal Nasal: Normal Mouth/Lips: Normal Mucous membranes: Normal Pharynx: Normal. No: Potential airway comprom. Neck: Normal, Supple. No: Lymphadenopathy, Meningismus - Respiratory Respiratory status: No respiratory distress Chest status: Nontender, Prolonged expirations. No: Pain on movement, Pain with cough, Accessory muscle use Breath sounds: Decreased air movement - patient had decreased air movement with noted expiratory wheezing throughout. no accessory muscle use, no tripoding. Patient is a little breathy when speaking but still can speak in full sentences., Wheezing. No: Rales, Rhonchi, Stridor Chest palpation: Normal - Cardiovascular Rhythm: Regular Heart sounds: Normal auscultation Murmur: No - Abdominal Inspection: Normal Distension: No distension Bowel sounds: Normal Tenderness: Nontender Organomegaly: No organomegaly - Back Back: Normal, Nontender - Neurological Neuro grossly intact: Yes Cognition: Normal Orientation: AAOx4 Star Coma Scale Eye Opening: Spontaneous Star Coma Scale Verbal: Oriented Star Coma Scale Motor: Obeys Commands Raymond Coma Scale Total: 15 Speech: Normal Cranial nerves: Normal Cerebellar coordination: Normal. No: Gait ataxia Motor strength normal: LUE, RUE, LLE, RLE Additional motor exam normals: Equal retail and promotions coordinator. No: Pronator drift Sensory: Normal - Psychological Associated symptoms: Normal affect, Normal mood - Skin Skin Temperature: Warm Skin Moisture: Dry Skin Color: Normal Course - Re-evaluation Re-evalutation: 08/09/19 16:12 Rounded on patient. She is feeling better after Solu-Medrol and another DuoNeb. Re-auscultation reveals that she still has diffuse expiratory wheezes but she is having better air movement than prior. We will give her another breathing treatment and also give her a little bit of fluid. She is tachycardic but suspect that this is related to the albuterol given to her. We will monitor closely. 08/09/19 18:26 patient was ambulated -- she did not do well. HR went up to 130 and she became more SOB. O2 went down to 92% on RA. Since she has not ambulated well, will seek admission for patient. Discussed patient with Dr. Botello, Er Attending. He agrees with the plan for admission. Updated patient and family about the plan and they agree with plan for admission. Discussed patient with RUBBER MILL OPERATOR Desiree Grider, hospitalist team, and she agrees with the plan for admission. She will come and see the patient. Would like for me to assign her a tele bed. Impression: COPD exacerbation. Patient still tachycardic and SOB when ambulating in the ER. Will admit to the hospitalist service for further management. - Vital Signs Vital signs: Temp Pulse Resp BP Pulse Ox 98.8 F 99 22 H 134/87 H 96 08/09/19 13:50 08/09/19 13:50 08/09/19 16:01 08/09/19 16:00 08/09/19 16:01 - Laboratory Result Diagrams: 08/09/19 14:15 08/09/19 15:10 Laboratory results interpreted by me: 08/09/19 08/09/19 14:15 15:10 Hgb 16.0 H Hct 47.8 H Glucose 118 H - Diagnostic Test Radiology reviewed: Image reviewed, Reports reviewed - EKG Interpretation by Me EKG shows normal: Sinus rhythm Rate: Tachycardia Rhythm: Other - sinus tachycardia When compared to previous EKG there are: No significant change Additional EKG results interpreted by me: 08/09/19 No STEMI, no ST changes, no change from prior on 05/25/18 Discharge - Discharge Clinical Impression: COPD exacerbation Condition: Stable Disposition: ADMITTED INPATIENT Admitting Provider: Anatoly (Hospitalist) Unit Admitted: Telemetry Referrals: ILANA MAGDALENO MD [Primary Care Provider] - Follow up as needed
[2019-08-09 14:59] LABS: ABSOLUTE EOSINOPHILS # (AUTO) 0.1 10^3/uL (0.0-0.6); ABSOLUTE MONOCYTES (AUTO) 0.4 10^3/uL (0.1-1.4); BASOPHILS % (AUTO) 0.9 % (0-2); EOSINOPHILS % (AUTO) 1.5 % (0-6); HEMATOCRIT 47.8 % (36.0-47.0); LYMPHOCYTES % (AUTO) 17.7 % (13-45); MEAN CORPUSCULAR HEMOGLOBIN 30.8 pg (27.0-33.4); MEAN CORPUSCULAR HGB CONC 33.4 g/dL (32.0-36.0); MEAN CORPUSCULAR VOLUME 92 fl (80-97); MONOCYTES % (AUTO) 6.9 % (3-13); PLATELET COUNT 275 10^3/uL (150-450); RED BLOOD COUNT 5.18 10^6/uL (3.72-5.28); TOTAL CELLS COUNTED % (AUTO) 100 %; WHITE BLOOD COUNT 5.4 10^3/uL (4.0-10.5)
[2019-08-09 15:45] LABS: ALKALINE PHOSPHATASE 93 U/L (38-126); ANION GAP 5 (5-19); ASPARTATE AMINO TRANSFERASE 23 U/L (14-36); BILIRUBIN,DIRECT 0.1 mg/dL (0.0-0.4); BILIRUBIN,TOTAL 0.4 mg/dL (0.2-1.3); BLOOD UREA NITROGEN 10 mg/dL (7-20); CARBON DIOXIDE 29 mmol/L (22-30); CHLORIDE 107 mmol/L (98-107); GLUCOSE 118 mg/dL (75-110); POTASSIUM 4.8 mmol/L (3.6-5.0)
--- NOTE | 2019-08-09 15:45 | RADIOLOGY REPORT (SQ) ---
EXAM DESCRIPTION: CHEST 2 VIEWS COMPLETED DATE/TIME: 08/09/2019 3:27 pm REASON FOR STUDY: SOB, chest tightness COMPARISON: 08/10/2018 EXAM PARAMETERS: NUMBER OF VIEWS: two views TECHNIQUE: Digital Frontal and Lateral radiographic views of the chest acquired. RADIATION DOSE: NA LIMITATIONS: none FINDINGS: LUNGS AND PLEURA: No opacities, masses or pneumothorax. No pleural effusion. MEDIASTINUM AND HILAR STRUCTURES: No masses or contour abnormalities. HEART AND VASCULAR STRUCTURES: Heart normal size. No evidence for failure. BONES: No acute findings. HARDWARE: None in the chest. OTHER: No other significant finding. IMPRESSION: NO ACUTE RADIOGRAPHIC FINDING IN THE CHEST. TECHNICAL DOCUMENTATION: JOB ID: [id number] [employer]- All Rights Reserved Reading location - IP/workstation name: [email or web address]
[2019-08-09] MEDS ORDERED: ALBUTEROL SULFATE 0.083% NEB 2.5 MG/3 ML AMPUL NEB ONE (16:10)
[2019-08-09] MEDS ORDERED: NORMAL SALINE 1000 ML 1,000 ML IV ONE (16:11)
[2019-08-09] MEDS ORDERED: FAMOTIDINE 20 MG TABLET PO ONE (17:34)
[2019-08-09] MEDS ORDERED: ACETAMINOPHEN 325 MG TABLET PO ONE (17:34)
[2019-08-09] MEDS ORDERED: MAG HYDROX/AL HYDROX/SIMETH SUSP 30 ML UDCUP PO PRN (18:24)
[2019-08-09] MEDS ORDERED: MAGNESIUM HYDROXIDE SUSP 30 ML UDCUP PO PRN (18:24)
[2019-08-09] MEDS ORDERED: NORMAL SALINE 1000 ML 1,000 ML IV PRN (18:24)
[2019-08-09] MEDS ORDERED: ACETAMINOPHEN 325 MG TABLET PO PRN (18:24)
[2019-08-09] MEDS ORDERED: LEVALBUTEROL HCL NEB 1.25 MG/3 ML AMPUL NEB PRN (18:24)
[2019-08-09] MEDS ORDERED: ONDANSETRON HCL INJ/PF 4 MG/2 ML SDV IV PRN (18:24)
[2019-08-09] MEDS ORDERED: MAGNESIUM SULFATE/D5W 1 GM/100 ML RTUPB IV ONE (18:28)
--- NOTE | 2019-08-09 18:44 | PDOC H&P ---
History of Present Illness Admission Date/PCP: ILANA MAGDALENO MD Patient complains of: Shortness of breath History of Present Illness: LUDWIN ELKINS is a 63 year old female with a past medical history of asthma, COPD, GERD, atrial fibrillation, non-STEMI, and obesity who presented to the emergency department with a 2-day complaint of progressively worsening shortness of breath and nonproductive cough unresponsive to home nebulizer treatments. The patient previously was followed by Dr. 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 Evaluation in the emergency department revealed tachycardia, tachypnea, hypoxia on room air, and otherwise unremarkable work-up with normal CBC, chemistry, troponin, chest x-ray, and EKG demonstrating sinus tachycardia only. Patient is already been provided IV Solu-Medrol, Pepcid, and multiple DuoNeb treatments without relief of shortness of breath or wheezing. Therefore she is referred to the hospitalist service for admission and management of the above-stated complaints and findings. Past Medical History Cardiac Medical History: Reports: Atrial Fibrillation, Myocardial Infarction Denies: Coronary Artery Disease, Hypertension, Pulmonary Embolism Pulmonary Medical History: Reports: Asthma, Chronic Obstructive Pulmonary Disease (COPD), Pneumonia Denies: Bronchitis, Sleep Apnea, Tuberculosis Neurological Medical History: Denies: Ischemic CVA, Seizures Endocrine Medical History: Reports: Obesity Renal/ Medical History: Denies: Chronic Kidney Disease Malignancy Medical History: Reports: Colorectal Cancer GI Medical History: Reports: Gastroesophageal Reflux Disease Denies: Crohn's Disease, Hiatal Hernia Musculoskeltal Medical History: Reports: Arthritis Psychiatric Medical History: Reports: Depression Denies: Bipolar Disorder, Post Traumatic Stress Disorder Hematology: Denies: Anemia Past Surgical History Past Surgical History: Reports: Cholecystectomy, Hysterectomy, Tubal Ligation, Other - Bowel resection for colon cancer Social History Information Source: Patient Lives with: Family Smoking Status: Current Every Day Smoker Cigarettes Packs Per Day: 0.2 Frequency of Alcohol Use: None Hx Recreational Drug Use: No Drugs: None Hx Prescription Drug Abuse: No - Advance Directive Resuscitation Status: Full Code Family History Family History: Reviewed & Not Pertinent Parental Family History Reviewed: Yes Children Family History Reviewed: Yes Sibling(s) Family History Reviewed.: Yes Medication/Allergy Home Medications: Tiotropium [place] [Spiriva Respimat] 4 gm IH BID 12/31/15 Fluticasone/Vilanterol [Breo Ellipta 200-25 Mcg INH] 1 each IH DAILY 06/12/19 Prednisone 10 mg PO PRN PRN 06/12/19 Allergies/Adverse Reactions: No Known Allergies Allergy (Verified 05/22/19 18:12) Review of Systems Constitutional: ABSENT: chills, fever(s), headache(s), weight gain, weight loss Eyes: ABSENT: visual disturbances Ears: ABSENT: hearing changes Cardiovascular: ABSENT: chest pain, dyspnea on exertion, edema, orthropnea, palpitations Respiratory: PRESENT: cough, dyspnea. ABSENT: hemoptysis Gastrointestinal: ABSENT: abdominal pain, constipation, diarrhea, hematemesis, hematochezia, nausea, vomiting Genitourinary: ABSENT: dysuria, hematuria Musculoskeletal: ABSENT: joint swelling Integumentary: ABSENT: rash, wounds Neurological: ABSENT: abnormal gait, abnormal speech, confusion, dizziness, foca l weakness, syncope Psychiatric: ABSENT: anxiety, depression, homidical ideation, suicidal ideation Endocrine: ABSENT: cold intolerance, heat intolerance, polydipsia, polyuria Hematologic/Lymphatic: ABSENT: easy bleeding, easy bruising Physical Exam Vital Signs: Temp Pulse Resp BP Pulse Ox 98.8 F 99 22 H 134/87 H 96 08/09/19 13:50 08/09/19 13:50 08/09/19 16:01 08/09/19 16:00 08/09/19 16:01 Intake & Output 08/08/19 08/09/19 08/10/19 06:59 06:59 06:59 Weight 77.4 kg General appearance: PRESENT: no acute distress, mild distress, well-developed, well-nourished Head exam: PRESENT: atraumatic, normocephalic Eye exam: PRESENT: conjunctiva pink, EOMI, PERRLA. ABSENT: scleral icterus Ear exam: PRESENT: normal external ear exam Mouth exam: PRESENT: moist, tongue midline Respiratory exam: PRESENT: decreased breath sounds - tight throughout, rhonchi, tachypnea, wheezes. ABSENT: rales Cardiovascular exam: PRESENT: RRR, +S1, +S2, tachycardia. ABSENT: diastolic murmur, rubs, systolic murmur Pulses: PRESENT: normal dorsalis pedis pul Vascular exam: PRESENT: normal capillary refill Extremities exam: PRESENT: full ROM. ABSENT: calf tenderness, clubbing, pedal edema Neurological exam: PRESENT: alert, awake, oriented to person, oriented to place, oriented to time, oriented to situation, CN II-XII grossly intact. ABSENT: motor sensory deficit Psychiatric exam: PRESENT: agitated, appropriate affect, normal mood. ABSENT: homicidal ideation, suicidal ideation Skin exam: PRESENT: dry, intact, warm. ABSENT: cyanosis, rash Results Laboratory Results: 08/09/19 14:15 08/09/19 15:10 08/09/19 08/09/19 08/09/19 14:15 14:15 15:10 WBC 5.4 RBC 5.18 Hgb 16.0 H Hct 47.8 H MCV 92 MCH 30.8 MCHC 33.4 RDW 14.0 Plt Count 275 Seg Neutrophils % 73.0 Sodium Cancelled 141.4 Potassium Cancelled 4.8 Chloride Cancelled 107 Carbon Dioxide Cancelled 29 Anion Gap Cancelled 5 BUN Cancelled 10 Creatinine Cancelled 0.71 Est GFR ( Amer) Cancelled > 60 Est GFR (Non-Af Amer) Cancelled Glucose Cancelled 118 H Calcium Cancelled 10.0 Magnesium Cancelled 2.0 Total Bilirubin Cancelled 0.4 AST Cancelled 23 Alkaline Phosphatase Cancelled 93 Total Protein Cancelled 7.0 Albumin Cancelled 4.0 08/09/19 08/09/19 14:15 15:10 Troponin I Cancelled < 0.012 Impressions: Chest X-Ray 08/09/19 14:46 IMPRESSION: NO ACUTE RADIOGRAPHIC FINDING IN THE CHEST. Assessment and Plan - Diagnosis (1) Asthma exacerbation in COPD Is this a current diagnosis for this admission?: Yes Plan: The patient is admitted to medical floor on continuous cardiac telemetry. She is provided supplemental oxygen as needed maintain saturations greater than 89%. She is provided scheduled and as needed nebulizer treatments. Continue IV Solu-Medrol. Twice daily Pepcid Singulair nightly. 1 g IV magnesium now secondary to asthma exacerbation. Patient denies home oxygen, CPAP or BiPAP use. ABG is pending. (2) GERD (gastroesophageal reflux disease) Is this a current diagnosis for this admission?: Yes Plan: Pepcid twice daily (3) Tachycardia Is this a current diagnosis for this admission?: Yes Plan: Secondary to #1 and aggressive nebulizer treatments. (4) Tobacco dependence Is this a current diagnosis for this admission?: Yes Plan: Smoking cessation strongly encouraged. - Time Time Spent with patient: 35 or more minutes Smoking Cessation Education: 3 to 10 minutes Medications reviewed and adjusted accordingly: Yes Anticipated discharge: Home Within: within 24 hours
[2019-08-09] MEDS: LEVALBUTEROL HCL NEB 1.25 MG/3 ML AMPUL NEB SCH (20:10)
[2019-08-09] MEDS: IPRATROPIUM BROMIDE 0.02% NEB 0.5 MG/2.5 ML AMPUL NEB SCH (20:10)
--- NOTE | 2019-08-09 21:34 | EKG REPORT ---
SEVERITY:- BORDERLINE ECG - SINUS TACHYCARDIA LOW VOLTAGE IN FRONTAL LEADS CONSIDER INFERIOR INFARCT : Confirmed by: Blade Sepulveda 09-Aug-2019 21:33:38
[2019-08-09] MEDS: FAMOTIDINE 20 MG TABLET PO SCH (21:53)
[2019-08-09] MEDS: METHYLPREDNISOLONE INJ 40 MG/1 ML SDV IV SCH (21:53)
[2019-08-09] MEDS: HEPARIN SOD (PORCINE) 5,000 UNIT/ML 1 ML VIAL SUBCUT SCH (21:53)
[2019-08-09] MEDS ORDERED: MONTELUKAST SODIUM 10 MG TABLET PO SCH (22:00)
[2019-08-10] MEDS: LEVALBUTEROL HCL NEB 1.25 MG/3 ML AMPUL NEB SCH ×2 (01:54→08:18)
[2019-08-10] MEDS: IPRATROPIUM BROMIDE 0.02% NEB 0.5 MG/2.5 ML AMPUL NEB SCH ×2 (01:54→08:18)
[2019-08-10 04:59] LABS: HEMOGLOBIN 14.3 g/dL (12.0-15.5); MEAN CORPUSCULAR VOLUME 91 fl (80-97); PLATELET COUNT 253 10^3/uL (150-450); RED BLOOD COUNT 4.61 10^6/uL (3.72-5.28); RED CELL DISTRIBUTION WIDTH 13.5 % (11.5-14.0); WHITE BLOOD COUNT 6.8 10^3/uL (4.0-10.5)
[2019-08-10 05:27] LABS: ANION GAP 10 (5-19); BLOOD UREA NITROGEN 11 mg/dL (7-20); CALCIUM 9.7 mg/dL (8.4-10.2); CARBON DIOXIDE 21 mmol/L (22-30); CHLORIDE 111 mmol/L (98-107); GLUCOSE 128 mg/dL (75-110); POTASSIUM 4.6 mmol/L (3.6-5.0)
[2019-08-10] MEDS: METHYLPREDNISOLONE INJ 40 MG/1 ML SDV IV SCH (05:37)
[2019-08-10] MEDS: HEPARIN SOD (PORCINE) 5,000 UNIT/ML 1 ML VIAL SUBCUT SCH (05:37)
[2019-08-10] MEDS ORDERED: DOCUSATE SODIUM 100 MG CAPSULE PO SCH (10:00)
[2019-08-10] MEDS ORDERED: PREDNISONE 20 MG TABLET PO SCH (10:00)
[2019-08-10] MEDS: FAMOTIDINE 20 MG TABLET PO SCH (10:37)
[2019-08-10 11:23] VITALS: BP 122/74
--- NOTE | 2019-08-10 13:02 | PDOC DISCHARGE SUMMARY ---
Impression - Admit/DC Date/PCP Admission Date/Primary Care Provider: 08/09/19 18:49 ILANA MAGDALENO MD Discharge Date: 08/10/19 - Discharge Diagnosis (1) Asthma exacerbation in COPD Is this a current diagnosis for this admission?: Yes (2) GERD (gastroesophageal reflux disease) Is this a current diagnosis for this admission?: Yes (3) Tachycardia Is this a current diagnosis for this admission?: Yes (4) Tobacco dependence Is this a current diagnosis for this admission?: Yes - Additional Information Resuscitation Status: Full Code Discharge Diet: Cardiac Discharge Activity: Activity As Tolerated, Balance Activity w/Rest, Slowly Increase Activity Referrals: ILANA MAGDALENO MD [Primary Care Provider] - Follow up as needed Prescriptions: Prednisone [Deltasone 20 mg Tablet] 20 mg PO ASDIR PRN #20 tablet PRN Reason: Ipratropium/Albuterol Sulfate [Duoneb 3 ml Ampul] 3 ml NEB [id number] PRN #60 vial.neb PRN Reason: For Wheezing Montelukast Sodium [Singulair 10 mg Tablet] 10 mg PO QHS #30 tablet Albuterol Sulfate [Ventolin 0.083% Neb 2.5 mg/3 mL Ampul] 3 ml NEB Q6HP PRN #120 PRN Reason: Home Medications: Acetaminophen [Tylenol 325 mg Tablet] 650 mg PO Q4HP PRN tablet 08/10/19 Albuterol Sulfate [Albuterol Sulfate Hfa] 1 puff IH Q6HP PRN 08/10/19 Albuterol Sulfate [Albuterol Sulfate Hfa] 2 puff IH Q6 08/10/19 Albuterol Sulfate [Ventolin 0.083% Neb 2.5 mg/3 mL Ampul] 3 ml NEB Q6HP PRN #120 08/10/19 Fluticasone/Vilanterol [Breo Ellipta 200-25 Mcg INH] 1 puff IH DAILY 08/10/19 Ipratropium/Albuterol Sulfate [Duoneb 3 ml Ampul] 3 ml NEB [id number] PRN #60 vial.neb 08/10/19 Lansoprazole [Prevacid] 30 mg PO BID 08/10/19 Montelukast Sodium [Singulair 10 mg Tablet] 10 mg PO QHS #30 tablet 08/10/19 Nicotine Polacrilex [Nicotine Lozenge] 2 mg PO Q2HP PRN 08/10/19 Prednisone [Deltasone 20 mg Tablet] 20 mg PO ASDIR PRN #20 tablet 08/10/19 Tiotropium [place] [Spiriva Respimat] 2 puff IH DAILY 08/10/19 History of Present Illiness History of Present Illness: LUDWIN ELKINS is a 63 year old female with a past medical history of asthma, COPD, GERD, atrial fibrillation, non-STEMI, and obesity who presented to the emergency department with a 2-day complaint of progressively worsening shortness of breath and nonproductive cough unresponsive to home nebulizer treatments. The patient previously was followed by Dr. 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 Evaluation in the emergency department revealed tachycardia, tachypnea, hypoxia on room air, and otherwise unremarkable work-up with normal CBC, chemistry, troponin, chest x-ray, and EKG demonstrating sinus tachycardia only. Patient is already been provided IV Solu-Medrol, Pepcid, and multiple DuoNeb treatments without relief of shortness of breath or wheezing. Therefore she is referred to the hospitalist service for admission and management of the above-stated complaints and findings. Hospital Course Hospital Course: The patient was admitted to the medical floor and continuous cardiac telemetry. She was provided supplemental oxygen, IV Solu-Medrol, scheduled and as needed nebulizer treatments. Her symptoms rapidly improved and the following morning she was requesting to be discharged home. The patient was able to ambulate the hallways while on room air without increased work of breathing, maintaining oxygen saturations in the mid 90s, with her heart rate elevating to 126, however, her heart rate quickly recovered upon rest. Patient reports that she has a new patient appointment scheduled with Dr. Rey for Sunday. She reports that she has a nebulizer machine at home with plenty of medication. Patient is discharged home in stable condition. She is provided prescriptions for a refill of her albuterol nebulizer solution, DuoNeb solutions, Singulair, and a prednisone taper. She is advised to follow-up with her primary care provider within 1 week and to keep her previously scheduled appointment with Dr. Rey on Sunday. She is instructed to stop smoking and to avoid all other known respiratory triggers. She is instructed to take her medications as prescribed. She is encouraged to return to the emergency department as needed for concerning symptoms. Physical Exam Vital Signs: Temp Pulse Resp BP Pulse Ox 98.3 F 110 H 19 122/74 94 08/10/19 11:22 08/10/19 11:22 08/10/19 11:22 08/10/19 11:22 08/10/19 11:22 Intake & Output 08/09/19 08/10/19 08/11/19 06:59 06:59 06:59 Intake Total 1100 300 Balance 1100 300 Weight 76.3 kg General appearance: PRESENT: no acute distress, cooperative, well-developed, well-nourished Head exam: PRESENT: atraumatic, normocephalic Eye exam: PRESENT: conjunctiva pink, EOMI, PERRLA. ABSENT: scleral icterus Ear exam: PRESENT: normal external ear exam Mouth exam: PRESENT: moist, tongue midline Respiratory exam: PRESENT: clear to auscultation mick, symmetrical, unlabored, wheezes - Scant wheezing to right middle and lower banda; significantly improve d from yesterday. ABSENT: rales, rhonchi Cardiovascular exam: PRESENT: RRR, +S1, +S2, tachycardia - <110 at rest. ABSENT: diastolic murmur, rubs, systolic murmur Vascular exam: PRESENT: normal capillary refill Extremities exam: PRESENT: full ROM. ABSENT: calf tenderness, clubbing, pedal edema Musculoskeletal exam: PRESENT: ambulatory - Ambulatory on room air without increased work of breathing Neurological exam: PRESENT: alert, awake, oriented to person, oriented to place, oriented to time, oriented to situation, CN II-XII grossly intact. ABSENT: motor sensory deficit Psychiatric exam: PRESENT: appropriate affect, normal mood. ABSENT: homicidal ideation, suicidal ideation Skin exam: PRESENT: dry, intact, warm. ABSENT: cyanosis, rash Results Laboratory Results: WBC 6.8 10^3/uL (4.0-10.5) 08/10/19 04:15 RBC 4.61 10^6/uL (3.72-5.28) 08/10/19 04:15 Hgb 14.3 g/dL (12.0-15.5) 08/10/19 04:15 Hct 42.0 % (36.0-47.0) 08/10/19 04:15 MCV 91 fl (80-97) 08/10/19 04:15 MCH 31.0 pg (27.0-33.4) 08/10/19 04:15 MCHC 34.0 g/dL (32.0-36.0) 08/10/19 04:15 RDW 13.5 % (11.5-14.0) 08/10/19 04:15 Plt Count 253 10^3/uL (150-450) 08/10/19 04:15 Lymph % (Auto) 17.7 % (13-45) 08/09/19 14:15 [place] % (Auto) 6.9 % (3-13) 08/09/19 14:15 Eos % (Auto) 1.5 % (0-6) 08/09/19 14:15 Baso % (Auto) 0.9 % (0-2) 08/09/19 14:15 Absolute Neuts (auto) 4.0 10^3/uL (1.7-8.2) 08/09/19 14:15 Absolute Lymphs (auto) 1.0 10^3/uL (0.5-4.7) 08/09/19 14:15 Absolute Monos (auto) 0.4 10^3/uL (0.1-1.4) 08/09/19 14:15 Absolute Eos (auto) 0.1 10^3/uL (0.0-0.6) 08/09/19 14:15 Absolute Basos (auto) 0.0 10^3/uL (0.0-0.2) 08/09/19 14:15 Seg Neutrophils % 73.0 % (42-78) 08/09/19 14:15 Sodium 141.5 mmol/L (137-145) 08/10/19 04:15 Potassium 4.6 mmol/L (3.6-5.0) 08/10/19 04:15 Chloride 111 mmol/L (98-107) H 08/10/19 04:15 Carbon Dioxide 21 mmol/L (22-30) L 08/10/19 04:15 Anion Gap 10 (5-19) 08/10/19 04:15 BUN 11 mg/dL (7-20) 08/10/19 04:15 Creatinine 0.67 mg/dL (0.52-1.25) 08/10/19 04:15 Est GFR ( Amer) > 60 (>60) 08/10/19 04:15 Est GFR (Non-Af Amer) Cancelled 08/09/19 14:15 Est GFR (MDRD) Non-Af > 60 (>60) 08/10/19 04:15 Glucose 128 mg/dL (75-110) H 08/10/19 04:15 Calcium 9.7 mg/dL (8.4-10.2) 08/10/19 04:15 Magnesium 2.0 mg/dL (1.6-2.3) 08/09/19 15:10 Total Bilirubin 0.4 mg/dL (0.2-1.3) 08/09/19 15:10 Direct Bilirubin 0.1 mg/dL (0.0-0.4) 08/09/19 15:10 Neonat Total Bilirubin Not Reportable 08/09/19 15:10 Neonat Direct Bilirubin Not Reportable 08/09/19 15:10 Neonat Indirect Bili Not Reportable 08/09/19 15:10 AST 23 U/L (14-36) 08/09/19 15:10 ALT 16 U/L (<35) 08/09/19 15:10 Alkaline Phosphatase 93 U/L (38-126) 08/09/19 15:10 Troponin I < 0.012 ng/mL 08/09/19 18:04 Total Protein 7.0 g/dL (6.3-8.2) 08/09/19 15:10 Albumin 4.0 g/dL (3.5-5.0) 08/09/19 15:10 EGFR Cancelled 08/09/19 14:15 08/09/19 08/09/19 08/09/19 14:15 15:10 18:04 Troponin I Cancelled < 0.012 < 0.012 Impressions: Chest X-Ray 08/09/19 14:46 IMPRESSION: NO ACUTE RADIOGRAPHIC FINDING IN THE CHEST. Plan Plan of Treatment: The patient is discharged home in stable condition. She is advised to follow-up with her primary care provider within 1 week and to keep her previously scheduled appointment with Dr. Rey on Sunday. She is instructed to stop smoking and to avoid all other known respiratory triggers. She is instructed to take her medications as prescribed. She is encouraged to return to the emergency department as needed for concerning symptoms. Time Spent: Greater than 30 Minutes Stroke Is this a Stroke Patient?: No Acute Heart Failure - Is this a Heart Failure Patient?: No
== END 2019-08-10 11:20 | disposition home or self-care (01) ==
LOC: ER 13:46 → UNDOADMOB 18:49 → EH 18:49 → 5 19:54
PROVIDERS: ADMIT Internal Medicine; ATTEND Internal Medicine
PROC: HZ31ZZZ Individual Counseling for Substance Abuse Treatment, Behavioral (ICD-10-PCS; principal; 2019-08-09)
DX: J44.1 Chronic obstructive pulmonary disease with (acute) exacerbation (principal); J45.901 Unspecified asthma with (acute) exacerbation; K21.9 Gastro-esophageal reflux disease without esophagitis; R00.0 Tachycardia, unspecified; T48.6X5A Adverse effect of antiasthmatics, initial encounter; Y92.239 Unspecified place in hospital as the place of occurrence of the external cause; F17.210 Nicotine dependence, cigarettes, uncomplicated; R09.02 Hypoxemia; I25.2 Old myocardial infarction; Z79.899 Other long term (current) drug therapy; Z85.038 Personal history of other malignant neoplasm of large intestine; Z90.49 Acquired absence of other specified parts of digestive tract; Z79.51 Long term (current) use of inhaled steroids; Z99.81 Dependence on supplemental oxygen; Z79.52 Long term (current) use of systemic steroids
CPT/HCPCS: 93005; 94640 ×4; 99285; 96361; 96374; 36415 ×2; 83735; 85025; 85027; 80048; 80053; 84484; 71046; 93010; 99406; G0378 ×3; J1644 ×2; J2920 ×2; J2930; J3475; J7512; J7030 ×2; J3490 ×4; J7620

== ENCOUNTER → 2019-08-14 | Outpatient (CLI) | payer OTHER ==
[2019-08-14 13:22] LABS: ABSOLUTE EOSINOPHILS # (AUTO) 0.1 10^3/uL (0.0-0.6); ABSOLUTE LYMPHOCYTES (AUTO) 1.8 10^3/uL (0.5-4.7); ABSOLUTE MONOCYTES (AUTO) 0.8 10^3/uL (0.1-1.4); ABSOLUTE NEUT (AUTO) 5.5 10^3/uL (1.7-8.2); BASOPHILS % (AUTO) 0.5 % (0-2); HEMATOCRIT 44.6 % (36.0-47.0); MEAN CORPUSCULAR HGB CONC 33.7 g/dL (32.0-36.0); MEAN CORPUSCULAR VOLUME 92 fl (80-97); PLATELET COUNT 288 10^3/uL (150-450); RED BLOOD COUNT 4.85 10^6/uL (3.72-5.28); RED CELL DISTRIBUTION WIDTH 13.9 % (11.5-14.0); SEGMENTED NEUTROPHILS % (AUTO) 66.5 % (42-78); TOTAL CELLS COUNTED % (AUTO) 100 %; WHITE BLOOD COUNT 8.2 10^3/uL (4.0-10.5)
[2019-08-15 12:36] LABS: ANTICHROMATIN AB <0.2 AI (0.0-0.9); CENTROMERE B AB <0.2 AI (0.0-0.9); JO-1 ANTIBODY (ANACOMP) <0.2 AI (0.0-0.9); SJOGREN'S ANTI-SS-B AB <0.2 AI (0.0-0.9); SJOGREN'S SS-A ANTIBODY 0.2 AI (0.0-0.9)
[2019-08-15 12:59] LABS: DNA DOUBLE STRAND ANTIBODY ANA <1 IU/mL (0-9)
[2019-08-15 16:37] LABS: CYTOPLASMIC (C-ANCA) <1:20 titer (Neg:<1:20)
[2019-08-15 18:02] LABS: ATYPICAL PANCA <1:20 titer (Neg:<1:20)
[2019-08-16 11:37] LABS: M001-IGE PENICILLIUM CHRYSOGEN 0.27 kU/L (Class 0/I); M002-IGE CLADOSPORIUM HERBARUM 0.12 kU/L (Class 0/I); M003-IGE ASPERGILLUS FUMIGATUS 3.28 kU/L (Class III); M004-IGE MUCOR RACEMOSUS <0.10 kU/L (Class 0); M005-IGE CANDIDA ALBICANS 3.41 kU/L (Class III); M006-IGE ALTERNARIA ALTERNATA 0.13 kU/L (Class 0/I); M009-IGE FUSARIUM PROLIFERATUM <0.10 kU/L (Class 0); M012-IGE AUREOBASIDI PULLULANS 0.11 kU/L (Class 0/I); M013-IGE PHOMA BETAE <0.10 kU/L (Class 0); M014-IGE EPICOCCUM PURPURASCEN <0.10 kU/L (Class 0)
[2019-08-17 08:51] LABS: M010-IGE STEMPHYLIUM HERBARUM 0.11 kU/L (Class 0/I)
== END ==
LOC: OD 12:22
PROVIDERS: ATTEND Registered Nurse
DX: R94.2 Abnormal results of pulmonary function studies (principal); J44.9 Chronic obstructive pulmonary disease, unspecified
CPT/HCPCS: 36415; 82785; 85025; 86003; 86021; 86225; 86235; 86430

== ENCOUNTER 2019-10-05 22:04 | Observation (INO) | payer OTHER ==
[2019-10-05] MEDS ORDERED: IPRATROPIUM/ALBUTEROL 0.5-2.5 MG/3 ML AMPUL NEB ONE ×2 (22:31→22:41)
[2019-10-05] MEDS ORDERED: METHYLPREDNISOLONE INJ 125 MG/2 ML SDV IV ONE (22:31)
[2019-10-05 22:38] LABS: ABSOLUTE BASOPHILS # (AUTO) 0.1 10^3/uL (0.0-0.2); ABSOLUTE EOSINOPHILS # (AUTO) 0.3 10^3/uL (0.0-0.6); ABSOLUTE LYMPHOCYTES (AUTO) 2.9 10^3/uL (0.5-4.7); ABSOLUTE NEUT (AUTO) 3.9 10^3/uL (1.7-8.2); BASOPHILS % (AUTO) 0.9 % (0-2); EOSINOPHILS % (AUTO) 3.5 % (0-6); HEMATOCRIT 48.5 % (36.0-47.0); HEMOGLOBIN 16.1 g/dL (12.0-15.5); LYMPHOCYTES % (AUTO) 35.3 % (13-45); MEAN CORPUSCULAR HEMOGLOBIN 30.8 pg (27.0-33.4); MEAN CORPUSCULAR HGB CONC 33.2 g/dL (32.0-36.0); MEAN CORPUSCULAR VOLUME 93 fl (80-97); MONOCYTES % (AUTO) 12.6 % (3-13); PLATELET COUNT 335 10^3/uL (150-450); RED BLOOD COUNT 5.23 10^6/uL (3.72-5.28); RED CELL DISTRIBUTION WIDTH 13.7 % (11.5-14.0); SEGMENTED NEUTROPHILS % (AUTO) 47.7 % (42-78); TOTAL CELLS COUNTED % (AUTO) 100 %; WHITE BLOOD COUNT 8.3 10^3/uL (4.0-10.5)
[2019-10-05] MEDS ORDERED: NORMAL SALINE 1000 ML 1,000 ML IV ONE (22:41)
--- NOTE | 2019-10-05 22:44 | ER Document Report ---
ED Respiratory Problem - General Chief Complaint: Shortness Of Breath Stated Complaint: DIFFICULTY BREATHING Time Seen by Provider: 10/05/19 22:35 Notes: Patient is a 64-year-old female that comes to the emergency department for chief complaint of difficulty breathing. She states this is started over the past couple of days and became much worse tonight so she called EMS. She was found to be 91% on room air initially, wheezing, EMS gave her 1 DuoNeb and 1 albuterol treatment. Patient takes 5 mg of prednisone daily, has home nebulizers, has asthma and COPD and follows with his phlebotomist Dr. Rey. She is not on home oxygen. She admits she has been hospitalized and that years ago she was even intubated for COPD exacerbation. She denies fever/chills, chest pain, nausea/vomiting, or any other complaints. She denies medical history other than COPD including CAD, CHF, diabetes. She does continue to smoke. TRAVEL OUTSIDE OF THE [place] IN LAST 30 DAYS: No - Related Data Allergies/Adverse Reactions: No Known Allergies Allergy (Verified 09/26/19 11:11) Past Medical History - General Information source: Patient - Social History Smoking Status: Current Every Day Smoker Smoking Education Provided: Yes - <3 min Frequency of alcohol use: None Drug Abuse: None Lives with: Family Family History: Reviewed & Not Pertinent Patient has suicidal ideation: No Patient has homicidal ideation: No - Past Medical History Cardiac Medical History: Reports: Hx Atrial Fibrillation, Hx Heart Attack Denies: Hx Coronary Artery Disease, Hx Hypertension, Hx Pulmonary Embolism Pulmonary Medical History: Reports: Hx Asthma, Hx COPD, Hx Pneumonia Denies: Hx Bronchitis, Hx Respiratory Failure, Hx Sleep Apnea, Hx Tuberculosis Neurological Medical History: Denies: Hx Cerebrovascular Accident, Hx Seizures Endocrine Medical History: Denies: Hx Graves' Disease Renal/ Medical History: Denies: Hx End Stage Renal Disease, Hx Kidney Stones, Hx Ovarian Cysts, Hx Peritoneal Dialysis, Hx Pelvic Inflammatory Disease Malignancy Medical History: Reports: Hx Colorectal Cancer. Denies: Hx Breast Cancer, Hx Cervical Cancer, Hx Lung Cancer, Hx Ovarian Cancer GI Medical History: Reports: Hx Gastroesophageal Reflux Disease, Hx Ulcer. Denies: Hx Crohn's Disease, Hx Hiatal Hernia, Hx Irritable Bowel, Hx Liver Failure, Hx Pancreatitis Musculoskeletal Medical History: Reports Hx Arthritis, Denies Hx Fibromyalgia, Denies Hx Muscular Dystrophy, Denies Hx Systemic Lupus Erythematosus Psychiatric Medical History: Reports: Hx Depression Denies: Hx Bipolar Disorder, Hx Post Traumatic Stress Disorder, Hx Schizophrenia Traumatic Medical History: Denies: Hx Fractures Past Surgical History: Reports: Hx Abdominal Surgery, Hx Cholecystectomy, Hx Gynecologic Surgery - fibroid removal, Hx Hysterectomy, Hx Tubal Ligation, Other - Bowel resection for colon cancer. Denies: Hx Appendectomy, Hx Bowel Surgery, Hx Section, Hx Colostomy, Hx Coronary Artery Bypass Graft, Hx Gastric Bypass Surgery, Hx Herniorrhaphy, Hx Mastectomy, Hx Pacemaker, Hx Tonsillectomy - Immunizations Hx Diphtheria, Pertussis, Tetanus Vaccination: Yes Review of Systems - Review of Systems Constitutional: No symptoms reported EENT: No symptoms reported Cardiovascular: See HPI Respiratory: See HPI Gastrointestinal: No symptoms reported Genitourinary: No symptoms reported Female Genitourinary: No symptoms reported Musculoskeletal: No symptoms reported Skin: No symptoms reported Hematologic/Lymphatic: No symptoms reported Neurological/Psychological: No symptoms reported Physical Exam - Vital signs Vitals: Resp 29 H 10/05/19 22:08 - Notes Notes: GENERAL: Alert, interactive, speaks in very short sentences HEAD: Normocephalic, atraumatic. EYES: Pupils equal, round, and reactive to light. Extraocular movements intact. ENT: Oral mucosa moist, tongue midline. Oropharynx unremarkable. Airway patent. Nares patent, no nasal septal hematoma, TM's intact. NECK: Full range of motion. Supple. Trachea midline. LUNGS: Decreased breath sounds with expiratory wheezes throughout. Tachypnea with slightly labored breathing. Occasional tight cough. HEART: Tachycardia, normal rhythm, no murmur ABDOMEN: Soft, non-tender. Non-distended. EXTREMITIES: Moves all 4 extremities spontaneously. No edema, normal radial and dorsalis pedis pulses bilaterally. No cyanosis. BACK: no cervical, thoracic, lumbar midline tenderness. No saddle anesthesia, normal distal neurovascular exam. Moves all extremities in full range of motion. NEUROLOGICAL: Alert and oriented x3. Normal speech. Cranial nerves II through XII grossly intact. PSYCH: Normal affect, normal mood. SKIN: Warm, dry, normal turgor. No rashes or lesions noted. Course - Re-evaluation Re-evalutation: On initial evaluation patient with tachypnea, tachycardia, decreased breath sounds, expiratory wheezes. Placed on oxygen, given duo nebs, Solu-Medrol, magnesium. 10/05/19 Patient is much improved on reevaluation. Wheezing is almost resolved, heart rate is improved, blood pressure improved, patient no longer has labored breathing and appears much more relaxed. She is more talkative. Still receiving IV fluids and magnesium. On evaluation patient is wheezing slightly worse again, she will be given additional treatment. On reevaluation again patient is much relaxed, on oxygen, she is mildly tachycardic, she states she feels much better and she wants to go home. However because of her history, repeated wheezing, borderline respiratory status, I did recommend admission. Patient declines, states she wants to go home. Patient does agree to attempt to ambulate to evaluate her respiratory status. 10/05/19 Patient did very poorly with ambulation, she became hypoxic into the upper 80s, she became extremely dyspneic and actually had to stop and be placed in a wheelchair to be rolled back to the room because she could not complete the evaluation. After this patient did agree to be admitted to the hospital for COPD exacerbation. Discussed with Dr. Mcintyre. Discussed with Dr. Baxter, hospitalist, patient accepted to telemetry observation. - Vital Signs Vital signs: Temp Pulse Resp BP Pulse Ox 97.8 F 112 H 22 H 140/101 H 99 10/06/19 03:31 10/05/19 23:33 10/06/19 03:31 10/06/19 03:31 10/06/19 03:31 - Laboratory Result Diagrams: 10/05/19 22:16 10/05/19 22:16 Laboratory results interpreted by me: 10/05/19 10/05/19 22:16 23:00 Hgb 16.1 H Hct 48.5 H VBG pCO2 31.8 L VBG HCO3 15.7 L - EKG Interpretation by Me Additional EKG results interpreted by me: EKG shows sinus tachycardia at a rate of 119, QTC of 439, normal axis. No T wave inversions or ST segment changes in consecutive leads. Discharge - Discharge Clinical Impression: COPD exacerbation, Hypoxia, Wheezing, Tobacco abuse Condition: Stable Disposition: ADMITTED OBSERVATION Admitting Provider: Sahil (Hospitalist) Unit Admitted: Telemetry
[2019-10-05] MEDS ORDERED: ALBUTEROL SULFATE 0.083% NEB 2.5 MG/3 ML AMPUL NEB SCH (22:46)
[2019-10-05] MEDS: MAGNESIUM SULFATE/D5W 1 GM/100 ML RTUPB IV SCH ×2 (22:48→23:27)
[2019-10-05 23:00] LABS: ALBUMIN 4.2 g/dL (3.5-5.0); ALKALINE PHOSPHATASE 109 U/L (38-126); ANION GAP 10 (5-19); ASPARTATE AMINO TRANSFERASE 28 U/L (14-36); BILIRUBIN,DIRECT 0.3 mg/dL (0.0-0.4); BILIRUBIN,TOTAL 0.3 mg/dL (0.2-1.3); BLOOD UREA NITROGEN 9 mg/dL (7-20); CALCIUM 9.8 mg/dL (8.4-10.2); CARBON DIOXIDE 25 mmol/L (22-30); CHLORIDE 105 mmol/L (98-107); CREATINE KINASE 82 U/L (30-135); GLUCOSE 107 mg/dL (75-110); POTASSIUM 4.5 mmol/L (3.6-5.0); TOTAL PROTEIN 7.5 g/dL (6.3-8.2)
--- NOTE | 2019-10-05 23:05 | EKG REPORT ---
SEVERITY:- BORDERLINE ECG - SINUS TACHYCARDIA LOW VOLTAGE IN FRONTAL LEADS LA ENLARGEMENT. : Confirmed by: Cabrera Klein MD 05-Oct-2019 23:03:59
[2019-10-05 23:11] LABS: CREATINE KINASE MB 0.61 ng/mL (<4.55)
[2019-10-05 23:12] LABS: TROPONIN I < 0.012 ng/mL
[2019-10-05 23:14] LABS: VENOUS BLOOD BASE EXCESS -9.2 mmol/L; VENOUS BLOOD HCO3 15.7 mmol/L (20-32); VENOUS BLOOD PCO2 31.8 mmHg (35-63); VENOUS BLOOD PH 7.31 (7.30-7.42)
--- NOTE | 2019-10-05 23:47 | RADIOLOGY REPORT (SQ) ---
Chest single view on 10/05/2019 at 11:26 PM CLINICAL INDICATION: Respiratory difficulty COMPARISON: 08/09/2019 FINDINGS: The lungs are clear. Mild vascular calcification is noted in the aorta. Cardiac, hilar and mediastinal contours are within normal limits. Pulmonary vascularity is within normal limits. No bony abnormality is noted. IMPRESSION: No active disease.
[2019-10-06] MEDS ORDERED: DILTIAZEM HCL 60 MG TABLET PO ONE (02:32)
[2019-10-06] MEDS ORDERED: ACETAMINOPHEN 325 MG TABLET PO PRN (02:33)
[2019-10-06] MEDS ORDERED: IPRATROPIUM/ALBUTEROL 0.5-2.5 MG/3 ML AMPUL NEB PRN (02:33)
[2019-10-06] MEDS ORDERED: PREDNISONE 20 MG TABLET PO ONE (02:45)
[2019-10-06] MEDS: CHLORPHENIRAMINE MALEATE 4 MG TABLET PO SCH ×4 (03:30→21:44)
--- NOTE | 2019-10-06 04:51 | PDOC H&P ---
History of Present Illness Admission Date/PCP: 10/06/19 02:39 ELA WALSH Patient complains of: Shortness of breath History of Present Illness: LUDWIN ELKINS is a 64 year old female with a past medical history of prednisone-dependent COPD, atrial fibrillation and tobacco dependence. She presents with shortness of breath and a nonproductive cough unresponsive to home nebulizer prompting evaluation in the emergency room. She is found to have wheeze, use of a sensory muscles, tachypnea, tachycardia and hypoxia of 88% on room air. She denies fever chills nausea vomiting or chest pain. She started on empiric antibiotics, steroids, albuterol and Atrovent and referred to the hospitalist for admission. Past Medical History Cardiac Medical History: Reports: Atrial Fibrillation, Myocardial Infarction Denies: Coronary Artery Disease, Hypertension, Pulmonary Embolism Pulmonary Medical History: Reports: Asthma, Chronic Obstructive Pulmonary Disease (COPD), Pneumonia Denies: Bronchitis, Respiratory Failure, Sleep Apnea, Tuberculosis Neurological Medical History: Denies: Seizures Endocrine Medical History: Renal/ Medical History: Denies: End Stage Renal Disease Malignancy Medical History: Reports: Colorectal Cancer Denies: Breast Cancer, Cervical Cancer, Lung Cancer, Ovarian Cancer GI Medical History: Reports: Gastroesophageal Reflux Disease Denies: Crohn's Disease, Hiatal Hernia Musculoskeltal Medical History: Reports: Arthritis Denies: Fibromyalgia Psychiatric Medical History: Reports: Depression, Tobacco Dependency Denies: Bipolar Disorder, Post Traumatic Stress Disorder Hematology: Denies: Anemia Past Surgical History Past Surgical History: Reports: Cholecystectomy, Hysterectomy, Tubal Ligation, Other - Bowel resection for colon cancer Denies: Appendectomy, Section, Colostomy, Coronary Artery Bypass Graft, Gastric Bypass Surgery, Herniorrhaphy, Mastectomy, Pacemaker, Tonsillectomy Social History Information Source: Patient Smoking Status: Current Every Day Smoker Frequency of Alcohol Use: None Hx Recreational Drug Use: No Drugs: None Hx Prescription Drug Abuse: No - Advance Directive Resuscitation Status: Full Code Family History Family History: Hypertension Parental Family History Reviewed: Yes Children Family History Reviewed: Yes Sibling(s) Family History Reviewed.: Yes Medication/Allergy Home Medications: Acetaminophen [Tylenol 325 mg Tablet] 650 mg PO Q4HP PRN tablet 08/10/19 Albuterol Sulfate [Albuterol Sulfate Hfa] 1 puff IH Q6HP PRN 08/10/19 Albuterol Sulfate [Albuterol Sulfate Hfa] 2 puff IH Q6 08/10/19 Albuterol Sulfate [Ventolin 0.083% Neb 2.5 mg/3 mL Ampul] 3 ml NEB Q6HP PRN #120 08/10/19 Fluticasone/Vilanterol [Breo Ellipta 200-25 Mcg INH] 1 puff IH DAILY 08/10/19 Ipratropium/Albuterol Sulfate [Duoneb 3 ml Ampul] 3 ml NEB [id number] PRN #60 vial.neb 08/10/19 Lansoprazole [Prevacid] 30 mg PO BID 08/10/19 Montelukast Sodium [Singulair 10 mg Tablet] 10 mg PO QHS #30 tablet 08/10/19 Nicotine Polacrilex [Nicotine Lozenge] 2 mg PO Q2HP PRN 08/10/19 Prednisone [Deltasone 20 mg Tablet] 20 mg PO ASDIR PRN #20 tablet 08/10/19 Tiotropium [place] [Spiriva Respimat] 2 puff IH DAILY 08/10/19 Allergies/Adverse Reactions: No Known Allergies Allergy (Verified 09/26/19 11:11) Review of Systems Constitutional: PRESENT: as per HPI, fatigue. ABSENT: chills, fever(s), headache(s), weight gain, weight loss Eyes: ABSENT: visual disturbances Ears: ABSENT: hearing changes Cardiovascular: ABSENT: chest pain, dyspnea on exertion, edema, orthropnea, palpitations Respiratory: PRESENT: as per HPI, cough, dyspnea. ABSENT: hemoptysis, sputum Gastrointestinal: ABSENT: abdominal pain, constipation, diarrhea, hematemesis, hematochezia, nausea, vomiting Genitourinary: ABSENT: dysuria, hematuria Musculoskeletal: ABSENT: joint swelling Integumentary: ABSENT: rash, wounds Neurological: ABSENT: abnormal gait, abnormal speech, confusion, dizziness, focal weakness, syncope Psychiatric: ABSENT: anxiety, depression, homidical ideation, suicidal ideation Endocrine: ABSENT: cold intolerance, heat intolerance, polydipsia, polyuria Hematologic/Lymphatic: ABSENT: easy bleeding, easy bruising Physical Exam Vital Signs: Temp Pulse Resp BP Pulse Ox 97.8 F 112 H 22 H 140/101 H 99 10/06/19 03:31 10/05/19 23:33 10/06/19 03:31 10/06/19 03:31 10/06/19 03:31 Intake & Output 10/04/19 10/05/19 10/06/19 11:59 11:59 11:59 Intake Total 1200 Balance 1200 Weight 68.039 kg General appearance: PRESENT: cooperative, mild distress, well-developed, well- nourished Head exam: PRESENT: atraumatic, normocephalic Eye exam: PRESENT: conjunctiva pink, EOMI, PERRLA. ABSENT: scleral icterus Ear exam: PRESENT: normal external ear exam Mouth exam: PRESENT: moist, tongue midline Neck exam: ABSENT: carotid bruit, JVD, lymphadenopathy, thyromegaly Respiratory exam: PRESENT: accessory muscle use, crackles, prolonged expiratory phas, retraction, symmetrical, tachypnea, wheezes Cardiovascular exam: PRESENT: tachycardia. ABSENT: diastolic murmur, rubs, systolic murmur Pulses: PRESENT: normal dorsalis pedis pul Vascular exam: PRESENT: normal capillary refill GI/Abdominal exam: PRESENT: normal bowel sounds, soft. ABSENT: distended, guarding, mass, organolmegaly, rebound, tenderness Rectal exam: PRESENT: deferred Extremities exam: PRESENT: full ROM. ABSENT: calf tenderness, clubbing, pedal edema Neurological exam: PRESENT: alert, awake, oriented to person, oriented to place, oriented to time, oriented to situation, CN II-XII grossly intact. ABSENT: motor sensory deficit Psychiatric exam: PRESENT: appropriate affect, normal mood. ABSENT: homicidal ideation, suicidal ideation Skin exam: PRESENT: dry, intact, warm. ABSENT: cyanosis, rash Results Laboratory Results: 10/05/19 22:16 10/05/19 22:16 10/05/19 10/05/19 10/05/19 22:16 22:16 23:00 WBC 8.3 RBC 5.23 Hgb 16.1 H Hct 48.5 H MCV 93 MCH 30.8 MCHC 33.2 RDW 13.7 Plt Count 335 Seg Neutrophils % 47.7 VBG pH 7.31 VBG pCO2 31.8 L VBG HCO3 15.7 L VBG Base Excess -9.2 Sodium 139.8 Potassium 4.5 Chloride 105 Carbon Dioxide 25 Anion Gap 10 BUN 9 Creatinine 0.82 Est GFR ( Amer) > 60 Glucose 107 Calcium 9.8 Total Bilirubin 0.3 AST 28 Alkaline Phosphatase 109 Total Protein 7.5 Albumin 4.2 10/05/19 10/05/19 22:16 22:20 Creatine Kinase 82 CK-MB (CK-2) 0.61 Troponin I < 0.012 Impressions: Chest X-Ray 10/05/19 22:31 IMPRESSION: No active disease. Assessment and Plan - Diagnosis (1) Acute bronchitis Is this a current diagnosis for this admission?: Yes Plan: Supplemental oxygen, albuterol, Atrovent, prednisone, empiric antibiotic, flutter valve and incentive spirometry (2) COPD exacerbation Is this a current diagnosis for this admission?: Yes Plan: Secondary to #1 (3) Tobacco abuse Is this a current diagnosis for this admission?: Yes Plan: Cessation counseling, declines nicotine replacement options (4) GERD (gastroesophageal reflux disease) Is this a current diagnosis for this admission?: Yes Plan: Prevacid twice daily - Time Time Spent with patient: 25-34 minutes - Inpatient Certification Medical Necessity: Need Close Monitoring Due to Risk of Patient Decompensation
[2019-10-06] MEDS: DILTIAZEM HCL 30 MG TABLET PO SCH ×3 (06:30→17:38)
[2019-10-06] MEDS: HEPARIN SOD (PORCINE) 5,000 UNIT/ML 1 ML VIAL SUBCUT SCH ×3 (06:30→21:44)
[2019-10-06] MEDS: IPRATROPIUM BROMIDE 0.02% NEB 0.5 MG/2.5 ML AMPUL NEB SCH ×3 (08:31→19:45)
[2019-10-06] MEDS: LEVALBUTEROL HCL NEB 1.25 MG/3 ML AMPUL NEB SCH ×3 (08:31→19:45)
[2019-10-06] MEDS ORDERED: PREDNISONE 20 MG TABLET PO SCH (10:00)
[2019-10-06] MEDS: FLUTICASONE NASAL SPRAY 50 MCG/SPRY 120 SPRAY/16 GM NASL SCH ×2 (10:13→21:45)
[2019-10-06] MEDS: GUAIFENESIN 600 MG TABLET.SA PO SCH ×2 (10:14→21:44)
[2019-10-06] MEDS: METHYLPREDNISOLONE INJ 40 MG/1 ML SDV IV SCH ×2 (10:15→21:44)
[2019-10-06] MEDS: AZITHROMYCIN 500 MG in DEXTROSE 5%-WATER 250 ML IV SCH (10:18)
[2019-10-06] MEDS ORDERED: CHLORPHENIRAMINE MALEATE 4 MG TABLET PO ONE (22:00)
[2019-10-07] MEDS: DILTIAZEM HCL 30 MG TABLET PO SCH ×4 (00:25→17:43)
[2019-10-07] MEDS: IPRATROPIUM BROMIDE 0.02% NEB 0.5 MG/2.5 ML AMPUL NEB SCH ×4 (02:51→20:46)
[2019-10-07] MEDS: LEVALBUTEROL HCL NEB 1.25 MG/3 ML AMPUL NEB SCH ×4 (02:51→20:46)
[2019-10-07] MEDS: HEPARIN SOD (PORCINE) 5,000 UNIT/ML 1 ML VIAL SUBCUT SCH ×3 (05:23→22:21)
[2019-10-07] MEDS: METHYLPREDNISOLONE INJ 40 MG/1 ML SDV IV SCH ×2 (10:29→22:17)
[2019-10-07] MEDS: AZITHROMYCIN 500 MG in DEXTROSE 5%-WATER 250 ML IV SCH (10:29)
[2019-10-07] MEDS: GUAIFENESIN 600 MG TABLET.SA PO SCH ×2 (10:29→22:17)
[2019-10-07] MEDS: FLUTICASONE NASAL SPRAY 50 MCG/SPRY 120 SPRAY/16 GM NASL SCH ×2 (10:30→22:25)
[2019-10-07] MEDS ORDERED: NICOTINE POLACRILEX 2 MG PO PRN (13:19)
[2019-10-07] MEDS ORDERED: NICOTINE 14 MG/24 HR PATCH.TD24 TD PRN (13:21)
--- NOTE | 2019-10-07 13:27 | PDOC PROGRESS REPORT ---
Subjective Progress Note for:: 10/07/19 Subjective:: Patient would like to go home and take care of her son who has Down syndrome. However she still endorses significant shortness of breath at this time. Denies any chest pain nausea or vomiting. Denies any fevers. Reason For Visit: COPD EXACERBATION,HYPOXIA,TACHYCARDIA Physical Exam Vital Signs: Temp Pulse Resp BP Pulse Ox 98.2 F 99 17 101/58 L 92 10/07/19 07:31 10/07/19 09:12 10/07/19 09:12 10/07/19 07:31 10/07/19 09:12 Intake & Output 10/06/19 10/07/19 10/08/19 06:59 06:59 06:59 Intake Total 1200 250 Output Total 300 Balance 1200 -50 Weight 68.039 kg 74.5 kg General appearance: PRESENT: cooperative, other - Still quite short of breath after sitting up and talking for a while Neck exam: ABSENT: JVD Respiratory exam: PRESENT: symmetrical, tachypnea, wheezes. ABSENT: crackles, rhonchi, unlabored Cardiovascular exam: PRESENT: RRR, +S1, +S2. ABSENT: tachycardia GI/Abdominal exam: PRESENT: normal bowel sounds, soft. ABSENT: rebound, rigid, tenderness Neurological exam: PRESENT: alert, awake, oriented to person, oriented to place, oriented to time, oriented to situation Results Laboratory Results: 10/05/19 22:16 10/05/19 22:16 10/05/19 10/05/19 22:16 22:20 Creatine Kinase 82 CK-MB (CK-2) 0.61 Troponin I < 0.012 Impressions: Chest X-Ray 10/05/19 22:31 IMPRESSION: No active disease. Assessment and Plan - Diagnosis (1) COPD exacerbation Is this a current diagnosis for this admission?: Yes Plan: Patient still quite short of breath today and as such I have told her that she will not be able to be discharged today. Continue frequent nebulizer treatments, steroids, azithromycin, LABA/LAMA/ICS Will also have patient get up and ambulate and see how she does (2) Acute bronchitis Qualifiers: Bronchitis organism: unspecified organism Qualified Code(s): J20.9 - Acute bronchitis, unspecified Is this a current diagnosis for this admission?: Yes Plan: Supportive care, incentive spirometer (3) Tobacco abuse Is this a current diagnosis for this admission?: Yes Plan: Cessation counseling, nicotine patch and lozenges (4) GERD (gastroesophageal reflux disease) Qualifiers: Esophagitis presence: without esophagitis Qualified Code(s): K21.9 - Gastro-esophageal reflux disease without esophagitis Is this a current diagnosis for this admission?: Yes Plan: Protonix - Time Time Spent with patient: 15-24 minutes
[2019-10-07] MEDS ORDERED: FLUTICASONE/VILANTEROL 200-25 MCG/DOSE IH SCH (13:30)
[2019-10-07] MEDS: FLUTICASONE/UMECLIDIN/VILANTER 100-62.5-25 MCG/DOSE IH SCH (17:42)
[2019-10-07] MEDS ORDERED: MONTELUKAST SODIUM 10 MG TABLET PO SCH (22:00)
[2019-10-08] MEDS: DILTIAZEM HCL 30 MG TABLET PO SCH ×3 (00:38→11:08)
[2019-10-08] MEDS: IPRATROPIUM BROMIDE 0.02% NEB 0.5 MG/2.5 ML AMPUL NEB SCH ×2 (02:22→08:14)
[2019-10-08] MEDS: LEVALBUTEROL HCL NEB 1.25 MG/3 ML AMPUL NEB SCH ×2 (02:22→08:14)
[2019-10-08] MEDS: HEPARIN SOD (PORCINE) 5,000 UNIT/ML 1 ML VIAL SUBCUT SCH (05:51)
[2019-10-08] MEDS ORDERED: PANTOPRAZOLE SODIUM 40 MG TABLET.DR PO SCH (06:00)
[2019-10-08] MEDS: GUAIFENESIN 600 MG TABLET.SA PO SCH (11:08)
[2019-10-08] MEDS: METHYLPREDNISOLONE INJ 40 MG/1 ML SDV IV SCH (11:10)
[2019-10-08] MEDS: AZITHROMYCIN 500 MG in DEXTROSE 5%-WATER 250 ML IV SCH (11:10)
[2019-10-08] MEDS: FLUTICASONE NASAL SPRAY 50 MCG/SPRY 120 SPRAY/16 GM NASL SCH (11:11)
[2019-10-08] MEDS: FLUTICASONE/UMECLIDIN/VILANTER 100-62.5-25 MCG/DOSE IH SCH (11:13)
[2019-10-08 13:13] VITALS: BP 130/83
--- NOTE | 2019-10-09 14:26 | PDOC DISCHARGE SUMMARY ---
Impression - Admit/DC Date/PCP Admission Date/Primary Care Provider: 10/06/19 02:39 ELA WALSH Discharge Date: 10/09/19 - Discharge Diagnosis (1) Acute exacerbation of COPD with asthma Is this a current diagnosis for this admission?: Yes (2) Acute respiratory failure with hypoxia Is this a current diagnosis for this admission?: Yes (3) Acute bronchitis Is this a current diagnosis for this admission?: Yes (4) GERD (gastroesophageal reflux disease) Is this a current diagnosis for this admission?: Yes (5) Tobacco abuse Is this a current diagnosis for this admission?: Yes - Additional Information Resuscitation Status: Full Code Discharge Diet: Regular Discharge Activity: Activity As Tolerated Referrals: IALNA MAGDALENO MD [ACTIVE STAFF] - 10/15/19 10:15 am CARTER MAYFIELD FNP-C [Primary Care Provider] - 10/22/19 3:15 pm Prescriptions: Azithromycin 250 mg PO DAILY 2 Days #2 tablet Prednisone 50 mg PO DAILY 4 Days #4 tablet Home Medications: Albuterol Sulfate [Albuterol Sulfate Hfa] 1 puff IH Q6HP PRN 08/10/19 Fluticasone/Vilanterol [Breo Ellipta 200-25 Mcg INH] 1 puff IH DAILY 08/10/19 Lansoprazole [Prevacid] 30 mg PO DAILY 08/10/19 Nicotine Polacrilex [Nicotine Lozenge] 2 mg PO Q2HP PRN 08/10/19 Tiotropium [place] [Spiriva Respimat] 2 puff IH DAILY 08/10/19 Fluticasone Propionate [Xhance] 1 spray NS BID 10/06/19 Azithromycin 250 mg PO DAILY 2 Days #2 tablet 10/08/19 Prednisone 50 mg PO DAILY 4 Days #4 tablet 10/08/19 History of Present Illiness History of Present Illness: LUDWIN ELKINS is a 64 year old female with a past medical history of prednisone-dependent COPD, atrial fibrillation and tobacco dependence. She presents with shortness of breath and a nonproductive cough unresponsive to home nebulizer prompting evaluation in the emergency room. She is found to have wheeze, use of a sensory muscles, tachypnea, tachycardia and hypoxia of 88% on room air. She denies fever chills nausea vomiting or chest pain. She started on empiric antibiotics, steroids, albuterol and Atrovent and referred to the hospitalist for admission. Hospital Course Hospital Course: (1) Acute exacerbation of COPD with asthma Presented with hypoxia tachycardia tachypnea Was admitted to telemetry and started on nebs, IV steroids, azithromycin, LABA, LABA, and ICS. Significant improvement of symptoms. SPO2 WNL on RA. Discharged home on p.o. azithromycin to complete total of 4 days. P.o. prednisone to complete total of 5 days. Patient is stating that of COPD with asthma used to be on management but missed her last dose yesterday insurance problems. Patient is stating that he is scheduled to receive her omalizumab as outpatient. (2) Acute respiratory failure with hypoxia Plan as per #1. (3) Acute bronchitis Supportive care, incentive spirometer (4) Tobacco abuse Cessation counseling, nicotine patch and lozenges (5) GERD (gastroesophageal reflux disease) Restarted on home meds. Patient PCP and gastroenterology follow-up recommended. Physical Exam Vital Signs: Temp Pulse Resp BP Pulse Ox 97.5 F 110 H 18 130/83 H 97 10/08/19 13:10 10/08/19 13:10 10/08/19 13:10 10/08/19 13:10 10/08/19 13:10 Intake & Output 10/08/19 10/09/19 10/10/19 06:59 06:59 06:59 Intake Total 1750 650 Balance 1750 650 Weight 73.9 kg General appearance: PRESENT: no acute distress, well-developed, well-nourished Head exam: PRESENT: atraumatic, normocephalic Respiratory exam: PRESENT: clear to auscultation mick. ABSENT: rales, rhonchi, wheezes Cardiovascular exam: PRESENT: RRR. ABSENT: diastolic murmur, rubs, systolic murmur GI/Abdominal exam: PRESENT: normal bowel sounds, soft. ABSENT: distended, guarding, mass, organolmegaly, rebound, tenderness Neurological exam: PRESENT: alert, awake, oriented to person, oriented to place, oriented to time, oriented to situation, CN II-XII grossly intact. ABSENT: motor sensory deficit Results Laboratory Results: WBC 8.3 10^3/uL (4.0-10.5) 10/05/19 22:16 RBC 5.23 10^6/uL (3.72-5.28) 10/05/19 22:16 Hgb 16.1 g/dL (12.0-15.5) H 10/05/19 22:16 Hct 48.5 % (36.0-47.0) H 10/05/19 22:16 MCV 93 fl (80-97) 10/05/19 22:16 MCH 30.8 pg (27.0-33.4) 10/05/19 22:16 MCHC 33.2 g/dL (32.0-36.0) 10/05/19 22:16 RDW 13.7 % (11.5-14.0) 10/05/19 22:16 Plt Count 335 10^3/uL (150-450) 10/05/19 22:16 Lymph % (Auto) 35.3 % (13-45) 10/05/19 22:16 [place] % (Auto) 12.6 % (3-13) 10/05/19 22:16 Eos % (Auto) 3.5 % (0-6) 10/05/19 22:16 Baso % (Auto) 0.9 % (0-2) 10/05/19 22:16 Absolute Neuts (auto) 3.9 10^3/uL (1.7-8.2) 10/05/19 22:16 Absolute Lymphs (auto) 2.9 10^3/uL (0.5-4.7) 10/05/19 22:16 Absolute Monos (auto) 1.0 10^3/uL (0.1-1.4) 10/05/19 22:16 Absolute Eos (auto) 0.3 10^3/uL (0.0-0.6) 10/05/19 22:16 Absolute Basos (auto) 0.1 10^3/uL (0.0-0.2) 10/05/19 22:16 Seg Neutrophils % 47.7 % (42-78) 10/05/19 22:16 VBG pH 7.31 (7.30-7.42) 10/05/19 23:00 VBG pCO2 31.8 mmHg (35-63) L 10/05/19 23:00 VBG HCO3 15.7 mmol/L (20-32) L 10/05/19 23:00 VBG Base Excess -9.2 mmol/L 10/05/19 23:00 Sodium 139.8 mmol/L (137-145) 10/05/19 22:16 Potassium 4.5 mmol/L (3.6-5.0) 10/05/19 22:16 Chloride 105 mmol/L (98-107) 10/05/19 22:16 Carbon Dioxide 25 mmol/L (22-30) 10/05/19 22:16 Anion Gap 10 (5-19) 10/05/19 22:16 BUN 9 mg/dL (7-20) 10/05/19 22:16 Creatinine 0.82 mg/dL (0.52-1.25) 10/05/19 22:16 Est GFR ( Amer) > 60 (>60) 10/05/19 22:16 Est GFR (MDRD) Non-Af > 60 (>60) 10/05/19 22:16 Glucose 107 mg/dL (75-110) 10/05/19 22:16 Calcium 9.8 mg/dL (8.4-10.2) 10/05/19 22:16 Total Bilirubin 0.3 mg/dL (0.2-1.3) 10/05/19 22:16 Direct Bilirubin 0.3 mg/dL (0.0-0.4) 10/05/19 22:16 Neonat Total Bilirubin Not Reportable 10/05/19 22:16 Neonat Direct Bilirubin Not Reportable 10/05/19 22:16 Neonat Indirect Bili Not Reportable 10/05/19 22:16 AST 28 U/L (14-36) 10/05/19 22:16 ALT 16 U/L (<35) 10/05/19 22:16 Alkaline Phosphatase 109 U/L (38-126) 10/05/19 22:16 Creatine Kinase 82 U/L (30-135) 10/05/19 22:16 CK-MB (CK-2) 0.61 ng/mL (<4.55) 10/05/19 22:20 Troponin I < 0.012 ng/mL 10/05/19 22:20 Total Protein 7.5 g/dL (6.3-8.2) 10/05/19 22:16 Albumin 4.2 g/dL (3.5-5.0) 10/05/19 22:16 10/05/19 22:20 CK-MB (CK-2) 0.61 Troponin I < 0.012 Impressions: Chest X-Ray 10/05/19 22:31 IMPRESSION: No active disease. Stroke Is this a Stroke Patient?: No Acute Heart Failure - Is this a Heart Failure Patient?: No
== END 2019-10-08 14:00 | disposition home or self-care (01) ==
LOC: ER 22:04 → EH 10-06 02:39 → 3W 10-06 15:49
PROVIDERS: ADMIT Internal Medicine; ATTEND Internal Medicine
DX: J44.1 Chronic obstructive pulmonary disease with (acute) exacerbation (principal); J20.9 Acute bronchitis, unspecified; J44.0 Chronic obstructive pulmonary disease with (acute) lower respiratory infection; J45.901 Unspecified asthma with (acute) exacerbation; J96.01 Acute respiratory failure with hypoxia; K21.9 Gastro-esophageal reflux disease without esophagitis; F17.200 Nicotine dependence, unspecified, uncomplicated; R00.0 Tachycardia, unspecified; I25.2 Old myocardial infarction; Z79.899 Other long term (current) drug therapy; Z79.51 Long term (current) use of inhaled steroids; Z79.52 Long term (current) use of systemic steroids; Z85.038 Personal history of other malignant neoplasm of large intestine; Z90.49 Acquired absence of other specified parts of digestive tract; Z82.49 Family history of ischemic heart disease and other diseases of the circulatory system; Z86.79 Personal history of other diseases of the circulatory system
CPT/HCPCS: 93005; 94640 ×4; 99285; 96375; 96365; 96366; 36415; 82553; 82550; 85025; 80053; 84484; 82803; 71045; 93010; 94667; 94668; G0378 ×4; J1644 ×3; J2920 ×3; J2930; J3475; J7512; J3490 ×10; J7060 ×3; J7030; J0456 ×3; J7620 ×2

== ENCOUNTER → 2019-10-13 | Outpatient (CLI) | payer OTHER ==
--- NOTE | 2019-10-13 10:58 | RADIOLOGY REPORT (SQ) ---
EXAM DESCRIPTION: CT CHEST WITHOUT COMPLETED DATE/TIME: 10/13/2019 10:44 am REASON FOR STUDY: PULMONARY NODULES R91.8 OTHER NONSPECIFIC ABNORMAL FINDING OF LUNG FIELD COMPARISON: 09/10/2018 TECHNIQUE: CT scan performed of the chest without intravenous contrast. Images reviewed with lung, soft tissue and bone windows. Reconstructed coronal and sagittal MPR images reviewed. All images st ored on PACS. All CT scanners at this facility use dose modulation, iterative reconstruction, and/or weight based d osing when appropriate to reduce radiation dose to as low as reasonably achievable (ALARA). [facility]: Dose Right [facility]: CareDose [facility]: Dose Right [facility]: Teradose 4D [facility]: [employer] RADIATION DOSE: CT Rad equipment meets quality standard of care and radiation dose reduction techniq ues were employed. CTDIvol: 10.0 mGy. DLP: 396 mGy-cm. mGy. LIMITATIONS: No technical limitations. FINDINGS: LUNGS AND PLEURA: Mild bilateral emphysematous changes. No suspicious pulmonary nodules. No consolidation. No effusions. HILAR AND MEDIASTINAL STRUCTURES: No identified masses or abnormal nodes. No obvious aneurysm. HEART AND VASCULAR STRUCTURES: No aneurysm. No pericardial effusion. UPPER ABDOMEN: No significant findings. Limited exam. THYROID AND OTHER SOFT TISSUES: No masses. No adenopathy. BONES: No significant finding. HARDWARE: None in the chest. OTHER: No other significant findings. IMPRESSION: Mild bilateral emphysematous changes. No suspicious findings which warrant follow-up. TECHNICAL DOCUMENTATION: JOB ID: [id number] Quality ID # [id number]: Final reports with documentation of one or more dose reduction techniques (e.g., Au tomated exposure control, adjustment of the mA and/or kV according to patient size, use of iterative reconstruction technique) 2010 [employer]- All Rights Reserved Reading location - IP/workstation name: [email or web address]
== END ==
LOC: RAD 10:25
PROVIDERS: ATTEND Registered Nurse
DX: J43.9 Emphysema, unspecified (principal); R91.8 Other nonspecific abnormal finding of lung field
CPT/HCPCS: 71250

== ENCOUNTER → 2020-02-03 | Outpatient (CLI) | payer MEDICARE, OTHER ==
--- NOTE | 2020-02-03 13:42 | RADIOLOGY REPORT (SQ) ---
EXAM DESCRIPTION: CHEST PA/LATERAL IMAGES COMPLETED DATE/TIME: 02/03/2020 1:29 pm REASON FOR STUDY: COPD,,SOB,COUGH COMPARISON: None. EXAM PARAMETERS: NUMBER OF VIEWS: two views TECHNIQUE: PA and lateral views of the chest were obtained. RADIATION DOSE: NA LIMITATIONS: none FINDINGS: LUNGS AND PLEURA: Acute asymmetric opacities in the right middle lobe. There is no sizabl e pleural effusion or pneumothorax. MEDIASTINUM AND HILAR STRUCTURES: No mediastinal or hilar contour abnormality. HEART AND VASCULAR STRUCTURES: The cardiac silhouette and pulmonary vasculature within normal limits. BONES: No acute findings. HARDWARE: Suture anchor in the proximal right humerus and surgical clips that project over the gastro esophageal junction. OTHER: No other finding. IMPRESSION: Acute opacities in the right middle lobe. Clinical correlation to exclude a pneumonia i s recommended. TECHNICAL DOCUMENTATION: JOB ID: [id number] 2010 [employer]- All Rights Reserved Reading location - IP/workstation name: [email or web address]
[2020-02-03 13:44] LABS: ABSOLUTE BASOPHILS # (AUTO) 0.1 10^3/uL (0.0-0.2); ABSOLUTE LYMPHOCYTES (AUTO) 0.6 10^3/uL (0.5-4.7); ABSOLUTE MONOCYTES (AUTO) 0.9 10^3/uL (0.1-1.4); ABSOLUTE NEUT (AUTO) 5.8 10^3/uL (1.7-8.2); BASOPHILS % (AUTO) 0.7 % (0-2); EOSINOPHILS % (AUTO) 0.6 % (0-6); HEMOGLOBIN 14.6 g/dL (12.0-15.5); LYMPHOCYTES % (AUTO) 8.4 % (13-45); MEAN CORPUSCULAR HEMOGLOBIN 31.5 pg (27.0-33.4); MEAN CORPUSCULAR HGB CONC 34.8 g/dL (32.0-36.0); MEAN CORPUSCULAR VOLUME 91 fl (80-97); MONOCYTES % (AUTO) 11.5 % (3-13); PLATELET COUNT 295 10^3/uL (150-450); RED BLOOD COUNT 4.64 10^6/uL (3.72-5.28); RED CELL DISTRIBUTION WIDTH 13.8 % (11.5-14.0); SEGMENTED NEUTROPHILS % (AUTO) 78.8 % (42-78); TOTAL CELLS COUNTED % (AUTO) 100 %; WHITE BLOOD COUNT 7.4 10^3/uL (4.0-10.5)
[2020-02-03 13:45] LABS: ARTERIAL BLOOD BASE EXCESS -3.6 mmol/L; ARTERIAL BLOOD FIO2 ROOM AIR; ARTERIAL BLOOD H2CO3 0.88 mmol/L (1.05-1.35); ARTERIAL BLOOD HCO3 19.2 mmol/L (20-24); ARTERIAL BLOOD O2 SATURATION 93.7 % (94-98); ARTERIAL BLOOD PCO2 29.2 mmHg (35-45); ARTERIAL BLOOD PH 7.44 (7.35-7.45); ARTERIAL BLOOD TOTAL CO2 20.1 mmol/L (21-25)
[2020-02-03 14:07] LABS: ALBUMIN 3.6 g/dL (3.5-5.0); ALKALINE PHOSPHATASE 94 U/L (38-126); ANION GAP 11 (5-19); ASPARTATE AMINO TRANSFERASE 21 U/L (14-36); BILIRUBIN,DIRECT 0.1 mg/dL (0.0-0.4); BILIRUBIN,TOTAL 0.5 mg/dL (0.2-1.3); BLOOD UREA NITROGEN 17 mg/dL (7-20); CALCIUM 9.7 mg/dL (8.4-10.2); CARBON DIOXIDE 24 mmol/L (22-30); CHLORIDE 99 mmol/L (98-107); GLUCOSE 134 mg/dL (75-110); POTASSIUM 4.2 mmol/L (3.6-5.0); TOTAL PROTEIN 6.7 g/dL (6.3-8.2)
== END ==
LOC: OD 12:32
PROVIDERS: ATTEND Obstetrics & Gynecology
DX: J44.9 Chronic obstructive pulmonary disease, unspecified (principal); J06.9 Acute upper respiratory infection, unspecified; R05 Cough; Z72.0 Tobacco use; Z79.899 Other long term (current) drug therapy
CPT/HCPCS: 36415; 71046; 80053; 82803; 85025

== ENCOUNTER → 2020-02-06 | Outpatient (CLI) | payer OTHER ==
[2020-02-06 11:20] VITALS: BP 128/69
--- NOTE | 2020-02-06 11:20 | ER RDC ASSESSMENT REPORT ---
Intake - In the Last 14 days Have you traveled outside [place]?: No Have you been in close contact with someone CONFIRMED: No Worked in Healthcare?: No - Symptoms Subjective Fever([place] feverish): Yes Chills: Yes Muscule Aches: Yes Runny Nose: No Sore Throat: No Cough (New or worsening chronic cough): Yes --How many day(s)?: Reports coughing up yellow sputum chest diagnosed on Sunday with pneumonia Shortness of breath: Yes Nausea or Vomiting: Yes Headache: Yes Abdominal Pain: Yes Diarrhea(3 or more loose stools in last 24 hours): Yes - Do you have any of the following Chronic lung disease: Asthma or emphysema or COPD: Yes Chronic Lung Disease Comment: RePorts a history of COPD Cystic Fibrosis: No Diabetes: No High Blood Pressure: No Cardiovascular Disease: No Chronic Kidney Disease: No Chronic Liver Disease: No Chronic blood disorder like Sickle Cell Disease: No Weak immune system due to disease or medication: No Neurologic condition that limits movement: No Developmental delay - Moderate to Severe: No Recent (within past 2 weeks) or current : No Morbid Obesity (>100 pounds over ideal weight): No Obesity Comment: Height 5 feet 7 inches weight 160 pounds - Objective Temperature: 97.2 F Pulse Rate: 110 Respiratory Rate: 20 Blood Pressure: 128/69 O2 Sat by Pulse Oximetry: 93 Objective: Given above, testing performed: If Testing Performed: Test Specimen Type Sent to General - General Information source: Patient Notes: Patient here today at [facility] for [facility] testing started feeling sick on January 30 was just diagnosed on Sunday with pneumonia has a history of COPD and currently still smokes although reports trying to cut down denies sore throat or runny nose just a persistent cough that is productive with yellow sputum was put on antibiotics and inhalers. Reports no change. Denies fever sees Dr. Jeffers as patient's PCP - Related Data Allergies/Adverse Reactions: No Known Allergies Allergy (Verified 09/26/19 11:11) Past Medical History - General Information source: Patient - Social History Smoking Status: Current Every Day Smoker Cigarette use (# per day): Yes - Reports has cut down but smokes 3 to 4 cigarettes a day currently Family History: Reviewed & Not Pertinent - Past Medical History Cardiac Medical History: Reports: Hx Atrial Fibrillation, Hx Heart Attack Denies: Hx Coronary Artery Disease, Hx Hypertension, Hx Pulmonary Embolism Pulmonary Medical History: Reports: Hx Asthma, Hx COPD, Hx Pneumonia Denies: Hx Bronchitis, Hx Respiratory Failure, Hx Sleep Apnea, Hx Tuberculosis Neurological Medical History: Denies: Hx Cerebrovascular Accident, Hx Seizures Endocrine Medical History: Denies: Hx Graves' Disease Renal/ Medical History: Denies: Hx End Stage Renal Disease, Hx Kidney Stones, Hx Ovarian Cysts, Hx Peritoneal Dialysis, Hx Pelvic Inflammatory Disease Malignancy Medical History: Reports: Hx Colorectal Cancer. Denies: Hx Breast Cancer, Hx Cervical Cancer, Hx Lung Cancer, Hx Ovarian Cancer GI Medical History: Reports: Hx Gastroesophageal Reflux Disease, Hx Ulcer. Denies: Hx Crohn's Disease, Hx Hiatal Hernia, Hx Irritable Bowel, Hx Liver Failure, Hx Pancreatitis Musculoskeletal Medical History: Reports Hx Arthritis, Denies Hx Fibromyalgia, Denies Hx Muscular Dystrophy, Denies Hx Systemic Lupus Erythematosus Psychiatric Medical History: Reports: Hx Depression Denies: Hx Bipolar Disorder, Hx Post Traumatic Stress Disorder, Hx Schizophrenia Traumatic Medical History: Denies: Hx Fractures Past Surgical History: Reports: Hx Abdominal Surgery, Hx Cholecystectomy, Hx Gynecologic Surgery - fibroid removal, Hx Hysterectomy, Hx Tubal Ligation, Other - Bowel resection for colon cancer. Denies: Hx Appendectomy, Hx Bowel Surgery, Hx Section, Hx Colostomy, Hx Coronary Artery Bypass Graft, Hx Gastric Bypass Surgery, Hx Herniorrhaphy, Hx Mastectomy, Hx Pacemaker, Hx Tonsillectomy Physical Exam - General General appearance: Appears well, Alert In distress: None Notes: PHYSICAL EXAMINATION: GENERAL: Well-appearing and in no acute distress. HEAD: Atraumatic, normocephalic. EYES: sclera anicteric, conjunctiva are normal. ENT: nares patent. Moist mucous membranes. NECK: Normal range of motion, supple without lymphadenopathy LUNGS: CTAB and equal. No wheezes rales or rhonchi. Resp even and unlabored. Left posterior and anterior expiratory wheeze noted. Occasional Moist non productive cough noted. HEART: Regular rate and rhythm without murmurs ABDOMEN: Soft, nontender, normal bowel sounds, no guarding. EXTREMITIES: No cyanosis. NEUROLOGICAL: Normal speech. PSYCH: Normal mood, normal affect. SKIN: Warm, Dry, normal turgor, - Respiratory Breath sounds: Nonproductive cough - Left anterior and posterior expiratory wheeze noted., Wheezing Diagnostic Results Laboratory Results: Patient informed of negative rapid strep and negative rapid flu results. pending strep culture pending COVID testing results. Patient provided instructions on COVID to include: As a person under investigation for Covid 19, the [place] department of Health and Human Services, division of public health advises you to adhere to the following guidance until your test results are repo rted to you. If your test result is positive, you will receive additional information from your provider and your local health department at that time. Remain at home until you are cleared by the health provider or public health authorities. Keep a log of visitors to your home, notify any visitors to your home of your isolation status. If you plan to move to a new address or leave the county, notify the local health department in your County. Call your doctor or seek care if you have an urgent medical need. Before seeking medical care, call ahead to get instructions from the provider before arriving at the medical office clinic or hospital. Notify them that you are being tested for the virus that causes Covid 19 so that arrangements can be made, as necessary, to prevent transmission to others in the healthcare setting. Next, notify the local health department in your county. If a medical emergency arises and you need to call 911, inform the first responders that you are being tested for the virus that causes Covid 19. Next, notify the local health department in your [facility]. Patient Education/Counseling Counseling/Education: Patient presents with upper respiratory symptoms worrisome for possible Covid 19. Patient does not have emergency worring symptoms such as difficulty breathing, shortness of breath, chest pain, pressure, confusion or cyanosis. Patient appears suitable for discharge. Patient instructed to contact PCP Dr. Jeffers today. Instructed to go to ED for persistent or worsening symptoms. Strongly encourage to Stop Smoking. Patient's vital signs are stable and patient is nontoxic in appearance. Good return precautions have been discussed with patient, patient verbalized understanding and is agreeable with discharge plan of care at this time. RDC Discharge - Discharge Clinical Impression: COVID - 19 SCREENING Condition: Stable Disposition: Home; Selfcare
[2020-02-06 12:40] LABS: A TYPE INFLUENZA AG NEGATIVE (NEGATIVE); B INFLUENZA AG NEGATIVE (NEGATIVE)
== END ==
LOC: RDC 10:43
PROVIDERS: ATTEND Nurse Practitioner Family
DX: Z20.828 Contact with and (suspected) exposure to other viral communicable diseases (principal); R50.9 Fever, unspecified; R06.02 Shortness of breath; R06.2 Wheezing; R05 Cough; R11.2 Nausea with vomiting, unspecified; R51 Headache; R10.9 Unspecified abdominal pain; R19.7 Diarrhea, unspecified; J44.9 Chronic obstructive pulmonary disease, unspecified; F17.210 Nicotine dependence, cigarettes, uncomplicated; Z87.01 Personal history of pneumonia (recurrent)
CPT/HCPCS: 87070; 87635; 87804; 87880; 99211

== ENCOUNTER 2020-06-17 13:32 | Emergency (ER) | payer OTHER ==
[2020-06-17 14:08] LABS: APPEARANCE,URINE CLEAR; BILIRUBIN,URINE NEGATIVE (NEGATIVE); COLOR,URINE STRAW; GLUCOSE, URINE NEGATIVE (NEGATIVE); KETONES,URINE NEGATIVE (NEGATIVE); LEUKOCYTE ESTERASE,URINE NEGATIVE (NEGATIVE); NITRITE,URINE NEGATIVE (NEGATIVE); PROTEIN,URINE NEGATIVE (NEGATIVE); URINE SPECIFIC GRAVITY 1.002; UROBILINOGEN,URINE NEGATIVE mg/dL (<2.0)
[2020-06-17 14:11] LABS: ABSOLUTE BASOPHILS # (AUTO) 0.1 10^3/uL (0.0-0.2); ABSOLUTE EOSINOPHILS # (AUTO) 0.2 10^3/uL (0.0-0.6); ABSOLUTE LYMPHOCYTES (AUTO) 1.5 10^3/uL (0.5-4.7); ABSOLUTE MONOCYTES (AUTO) 0.9 10^3/uL (0.1-1.4); ABSOLUTE NEUT (AUTO) 3.6 10^3/uL (1.7-8.2); BASOPHILS % (AUTO) 1.3 % (0-2); EOSINOPHILS % (AUTO) 2.7 % (0-6); HEMATOCRIT 46.4 % (36.0-47.0); HEMOGLOBIN 15.8 g/dL (12.0-15.5); LYMPHOCYTES % (AUTO) 24.5 % (13-45); MEAN CORPUSCULAR HEMOGLOBIN 30.6 pg (27.0-33.4); MEAN CORPUSCULAR VOLUME 90 fl (80-97); MONOCYTES % (AUTO) 14.1 % (3-13); PLATELET COUNT 264 10^3/uL (150-450); RED BLOOD COUNT 5.15 10^6/uL (3.72-5.28); RED CELL DISTRIBUTION WIDTH 13.8 % (11.5-14.0); SEGMENTED NEUTROPHILS % (AUTO) 57.4 % (42-78); TOTAL CELLS COUNTED % (AUTO) 100 %; WHITE BLOOD COUNT 6.3 10^3/uL (4.0-10.5)
[2020-06-17 14:37] LABS: CREATINE KINASE MB 0.92 ng/mL (<4.55)
[2020-06-17 14:41] LABS: TROPONIN I < 0.012 ng/mL
[2020-06-17 14:42] LABS: ALBUMIN 4.3 g/dL (3.5-5.0); ALKALINE PHOSPHATASE 99 U/L (38-126); ANION GAP 7 (5-19); ASPARTATE AMINO TRANSFERASE 29 U/L (14-36); BILIRUBIN,DIRECT 0.3 mg/dL (0.0-0.4); BILIRUBIN,TOTAL 0.6 mg/dL (0.2-1.3); BLOOD UREA NITROGEN 9 mg/dL (7-20); CALCIUM 9.6 mg/dL (8.4-10.2); CARBON DIOXIDE 28 mmol/L (22-30); CHLORIDE 106 mmol/L (98-107); CREATINE KINASE 114 U/L (30-135); GLUCOSE 119 mg/dL (75-110); POTASSIUM 3.7 mmol/L (3.6-5.0); TOTAL PROTEIN 7.7 g/dL (6.3-8.2)
--- NOTE | 2020-06-17 14:59 | ER Document Report ---
ED GI/ - General Chief Complaint: Abdominal Pain Stated Complaint: DIFFICULTY BREATHING Time Seen by Provider: 06/17/20 14:37 Primary Care Provider: ILANA MAGDALENO MD [Primary Care Provider] - Follow up as needed Notes: CHIEF COMPLAINT: Multiple complaints HPI: 64-year-old female with COPD history presenting with multiple complaints. Patient complains of generalized weakness and malaise for 3 weeks. Patient comp lains of pain in the right lower quadrant right groin region over the last week intermittently. Patient complains of some cloudiness of her urine. Patient complains of intermittent episodes of shortness of breath which she believes that this is her COPD. Patient was to follow with her primary care provider today and missed the appointment because she did not feel well. No definite fevers. No chest pain. No current shortness of breath. No current abdominal pain. Patient states she has been moving her bowels normally. ROS: See HPI - all other systems were reviewed and are otherwise negative Constitutional: no fever Eyes: no drainage, no blurred vision ENT: no runny nose, no sore throat Cardiovascular: no chest pain Resp: + SOB, no cough GI: no vomiting, no diarrhea, + abdominal pain : no dysuria Integumentary: no rash Allergy: no hives Musculoskeletal: no extremity pain or swelling Neurological: no numbness/tingling, positive generalized weakness MEDICATIONS: I agree with the patient medications as charted by the RN. ALLERGIES: I agree with the allergies as charted by the RN. PAST MEDICAL HISTORY/PAST SURGICAL HISTORY: Reviewed and agree as charted by RN. SOCIAL HISTORY: Reviewed and agree as charted by RN. FAMILY HISTORY: No significant familial comorbid conditions directly related to patient complaint EXAM: Reviewed vital signs as charted by RN. CONSTITUTIONAL: Alert and oriented and responds appropriately to questions. Well-appearing; well-nourished HEAD: Normocephalic; atraumatic EYES: PERRL; Conjunctivae clear, sclerae non-icteric ENT: normal nose; no rhinorrhea; moist mucous membranes; pharynx without lesions noted, no uvula edema or deviation, no tonsillar hypertrophy, phonation normal NECK: Supple without meningismus; non-tender; no cervical lymphadenopathy, no masses CARD: RRR; no murmurs, no clicks, no rubs, no gallops; symmetric distal pulses RESP: Normal chest excursion without splinting or tachypnea; breath sounds clear and equal bilaterally; no wheezes, no rhonchi, no rales, pulse oximetry 96% on room air not hypoxic ABD/GI: Normal bowel sounds; non-distended; soft, unable to reproduce any abdominal pain on palpation, no rebound, no guarding; no palpable organomegaly or masses. BACK: The back appears normal and is non-tender to palpation, there is no CVA tenderness EXT: Normal ROM in all joints; non-tender to palpation; no cyanosis, no effusions, no edema SKIN: Normal color for age and race; warm; dry; good turgor; no acute lesions noted NEURO: Moves all extremities equally; Motor and sensory function intact PSYCH: The patient's mood and manner are appropriate. Grooming and personal hygiene are appropriate. MDM: 64-year-old female presenting with multiple various vague complaints. Generalized weakness for 3 weeks. No chest pain. Has had intermittent shortness of breath which she believes is her COPD. No fever. Patient has had intermittent right lower quadrant pain over the last week. She has no pain on exam at this time. Initial screening labs drawn by triage process showed normal lab work normal WBC count normal chemistries negative troponin, normal urine. We will add CT abdomen given her age and complaint of abdominal pain. Will add chest x-ray given her complaint of shortness of breath. She is not hypoxic TRAVEL OUTSIDE OF THE [place] IN LAST 30 DAYS: No - Related Data Allergies/Adverse Reactions: No Known Allergies Allergy (Verified 03/04/20 12:23) Past Medical History - Social History Smoking Status: Current Every Day Smoker Chew tobacco use (# tins/day): No Frequency of alcohol use: None Drug Abuse: None Family History: Reviewed & Not Pertinent Patient has homicidal ideation: No - Past Medical History Cardiac Medical History: Reports: Hx Atrial Fibrillation, Hx Heart Attack Denies: Hx Coronary Artery Disease, Hx Hypertension, Hx Pulmonary Embolism Pulmonary Medical History: Reports: Hx Asthma, Hx COPD, Hx Pneumonia Denies: Hx Bronchitis, Hx Respiratory Failure, Hx Sleep Apnea, Hx Tuberculosis Neurological Medical History: Denies: Hx Cerebrovascular Accident, Hx Seizures Endocrine Medical History: Denies: Hx Graves' Disease Renal/ Medical History: Denies: Hx End Stage Renal Disease, Hx Kidney Stones, Hx Ovarian Cysts, Hx Peritoneal Dialysis, Hx Pelvic Inflammatory Disease Malignancy Medical History: Reports: Hx Colorectal Cancer. Denies: Hx Breast Cancer, Hx Cervical Cancer, Hx Lung Cancer, Hx Ovarian Cancer GI Medical History: Reports: Hx Gastroesophageal Reflux Disease, Hx Ulcer. Denies: Hx Crohn's Disease, Hx Hiatal Hernia, Hx Irritable Bowel, Hx Liver Failure, Hx Pancreatitis Musculoskeletal Medical History: Reports Hx Arthritis, Denies Hx Fibromyalgia, Denies Hx Muscular Dystrophy, Denies Hx Systemic Lupus Erythematosus Psychiatric Medical History: Reports: Hx Depression Denies: Hx Bipolar Disorder, Hx Post Traumatic Stress Disorder, Hx Schizo phrenia Traumatic Medical History: Denies: Hx Fractures Past Surgical History: Reports: Hx Abdominal Surgery, Hx Cholecystectomy, Hx Gynecologic Surgery - fibroid removal, Hx Hysterectomy, Hx Tubal Ligation, Other - Bowel resection for colon cancer. Denies: Hx Appendectomy, Hx Bowel Surgery, Hx Section, Hx Colostomy, Hx Coronary Artery Bypass Graft, Hx Gastric Bypass Surgery, Hx Herniorrhaphy, Hx Mastectomy, Hx Pacemaker, Hx Tonsillectomy - Immunizations Hx Diphtheria, Pertussis, Tetanus Vaccination: Yes Physical Exam - Vital signs Vitals: Temp 98.4 F 06/17/20 13:33 Course - Re-evaluation Re-evalutation: 06/17/20 17:07 Patient has been insistent on having Symbicort here, we do not stock her medication in the [facility] or the pharmacy here. I have given the patient Decadron given her COPD issues. She is only on prednisone 4 mg for maintenance of her COPD. Patient was given a breathing treatment here because she complained of some shortness of breath. Her screening cardiac labs were normal. Awaiting CT imaging for the abdominal pain that I cannot reproduce on palpation currently. Patient has refused COVID test 06/17/20 17:11 EKG shows a sinus tachycardia initially with a heart rate of 111. WI 132. QT 324. QTc 441. 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 No other ectopy or acute abnormalities interpreted by emergency department physician 06/17/20 19:49 CT imaging does not show acute findings does show diverticulosis without diverticulitis. No definitive reason for patient's discomfort. She has not been short of breath while she has been here, not hypoxic. She is been given Decadron for her COPD which is likely a mild exacerbation. X-ray imaging did not reveal evidence of pneumonia. No definitive reason for patient's complaint of generalized weakness for 3 weeks. We will have her follow-up with her PCP tomorrow for reevaluation - Vital Signs Vital signs: Temp Pulse Resp BP Pulse Ox 98.2 F 98 21 H 127/90 H 94 06/17/20 17:01 06/17/20 15:00 06/17/20 17:01 06/17/20 17:00 06/17/20 18:00 - Laboratory Result Diagrams: 06/17/20 13:47 06/17/20 13:47 Laboratory results interpreted by me: 06/17/20 06/17/20 13:47 13:47 Hgb 15.8 H Stevens % (Auto) 14.1 H Glucose 119 H Discharge - Discharge Clinical Impression: COPD exacerbation, Generalized weakness, Abdominal pain, right lower quadrant Condition: Stable Disposition: HOME, SELF-CARE Additional Instructions: Your lab work and imaging studies today did not reveal a definitive reason for your symptoms. Your chest x-ray did not show evidence of pneumonia. Your CT imaging did not reveal evidence of a reason for the discomfort in the abdomen did reveal that you have diverticulosis. Continue your previous medications at home. You are to quarantine at home pending your Covid study result which may take 2-5 days. You will be called from the hospital with your results. You should call your PCP tomorrow for further evaluation Referrals: ILANA MAGDALENO MD [Primary Care Provider] - Follow up as needed
--- NOTE | 2020-06-17 16:01 | RADIOLOGY REPORT (SQ) ---
EXAM DESCRIPTION: CHEST SINGLE VIEW IMAGES COMPLETED DATE/TIME: 06/17/2020 3:19 pm REASON FOR STUDY: sob COMPARISON: 02/03/2020 NUMBER OF VIEWS: One view. TECHNIQUE: Single frontal radiographic view of the chest acquired. LIMITATIONS: None. FINDINGS: LUNGS AND PLEURA: Scarring in the left costophrenic angle. No pleural effusion. Attenuated blood vessels and flattened cristobal-diaphragms. MEDIASTINUM AND HILAR STRUCTURES: No masses. Contour normal. HEART AND VASCULAR STRUCTURES: Heart normal in size. Normal vasculature. BONES: No acute findings. HARDWARE: None in the chest. OTHER: No other significant finding. IMPRESSION: COPD. NO ACUTE RADIOGRAPHIC FINDING IN THE CHEST. TECHNICAL DOCUMENTATION: JOB ID: [id number] 2010 [employer]- All Rights Reserved Reading location - IP/workstation name: [email or web address]
[2020-06-17] MEDS ORDERED: IPRATROPIUM/ALBUTEROL 0.5-2.5 MG/3 ML AMPUL NEB ONE ×2 (16:04→20:24)
[2020-06-17] MEDS ORDERED: DEXAMETHASONE SOD PHOS INJ 10 MG/1 ML VIAL IV ONE (17:04)
[2020-06-17] MEDS ORDERED: LORAZEPAM 0.5 MG TABLET PO ONE (17:56)
--- NOTE | 2020-06-17 18:26 | EKG REPORT ---
SEVERITY:- ABNORMAL ECG - SINUS TACHYCARDIA INFERIOR INFARCT, OLD : Confirmed by: Blade Sepulveda 17-Jun-2020 18:25:35
--- NOTE | 2020-06-17 19:47 | RADIOLOGY REPORT (SQ) ---
EXAM DESCRIPTION: CT ABD/PELVIS WITH IV ORAL IMAGES COMPLETED DATE/TIME: 06/17/2020 7:19 pm REASON FOR STUDY: RLQ pain COMPARISON: 07/18/2018 TECHNIQUE: CT scan of the abdomen and pelvis performed using helical scanning technique with dynamic intravenous contrast injection. Oral contrast. Images reviewed with lung, soft tissue, and bone win dows. Reconstructed coronal and sagittal MPR images reviewed. Delayed images for evaluation of the ur inary system also acquired. All images stored on PACS. All CT scanners at this facility use dose modulation, iterative reconstruction, and/or weight based d osing when appropriate to reduce radiation dose to as low as reasonably achievable (ALARA). [facility]: Dose Right [facility]: CareDose [facility]: Dose Right [facility]: Teradose 4D [facility]: [employer] CONTRAST TYPE AND DOSE: contrast/concentration: Isovue 350.00 mmol/ml; Total Contrast Delivered: 85. 0 ml; Total Saline Delivered: 69.0 ml RENAL FUNCTION: BUN 9 creatinine 0.72 RADIATION DOSE: CT Rad equipment meets quality standard of care and radiation dose reduction techniq ues were employed. CTDIvol: 7.6 - 10.6 mGy. DLP: 922 mGy-cm.. LIMITATIONS: None. FINDINGS: LOWER CHEST: No significant findings. No nodules or infiltrates. LIVER: Normal size. No masses. No dilated ducts. SPLEEN: Normal size. No focal lesions. PANCREAS: No masses. No significant calcifications. No adjacent inflammation or peripancreatic fluid collections. Pancreatic duct not dilated. GALLBLADDER: No identified stones by CT criteria. No inflammatory changes to suggest cholecystitis. ADRENAL GLANDS: No significant masses or asymmetry. RIGHT KIDNEY AND URETER: No solid masses. No significant calcifications. No hydronephrosis or hyd roureter. LEFT KIDNEY AND URETER: No solid masses. Renal vascular calcification. No hydronephrosis or hydro ureter. AORTA AND VESSELS: No aneurysm. No dissection. Renal arteries, SMA, celiac without stenosis. RETROPERITONEUM: No retroperitoneal adenopathy, hemorrhage or masses. BOWEL AND PERITONEAL CAVITY: Mild sigmoid diverticulosis with no associated inflammation. APPENDIX: Surgically absent. PELVIS: No mass. No free fluid. Normal bladder. ABDOMINAL WALL: No masses. No hernias. BONES: No significant or acute findings. OTHER: No other significant finding. IMPRESSION: Mild diverticulosis coli. No acute finding in the abdomen or pelvis. TECHNICAL DOCUMENTATION: JOB ID: [id number] Quality ID # [id number]: Final reports with documentation of one or more dose reduction techniques (e.g., Au tomated exposure control, adjustment of the mA and/or kV according to patient size, use of iterative reconstruction technique) 2010 [employer]- All Rights Reserved Reading location - IP/workstation name: [email or web address]
[2020-06-17] MEDS ORDERED: NORMAL SALINE 1000 ML 1,000 ML IV ONE (20:24)
[2020-06-17] MEDS: MAGNESIUM SULFATE/D5W 1 GM/100 ML RTUPB IV SCH ×2 (20:53→22:09)
[2020-06-17] MEDS ORDERED: AZITHROMYCIN 250 MG TABLET PO ONE (22:05)
[2020-06-17 23:29] VITALS: BP 131/101
== END 2020-06-17 23:32 | disposition home or self-care (01) ==
LOC: ER 13:32
DX: J44.1 Chronic obstructive pulmonary disease with (acute) exacerbation (principal); R53.1 Weakness; R10.31 Right lower quadrant pain; R53.81 Other malaise; R06.02 Shortness of breath; F17.200 Nicotine dependence, unspecified, uncomplicated; I48.91 Unspecified atrial fibrillation; I25.2 Old myocardial infarction; Z79.899 Other long term (current) drug therapy; Z20.828 Contact with and (suspected) exposure to other viral communicable diseases
CPT/HCPCS: 93005; 94640 ×2; 99285; 96375; 96365; 96366; 36415; 82553; 82550; 84443; 85025; 87635; 80053; 81001; 84484; 71045; 74177; 93010; J3475; J7030; J1100; C9803

== ENCOUNTER → 2020-07-14 | Outpatient (CLI) | payer MEDICARE, OTHER ==
--- NOTE | 2020-07-14 12:18 | WOMENS IMAGING REPORT ---
EXAM DESCRIPTION: BONE DENSITY HIP/SPINE IMAGES COMPLETED DATE/TIME: 07/14/2020 12:07 pm REASON FOR STUDY: N95.8 OTHER SPECIFIED MENOPAUSAL AND PERIMENOPAUSAL DISORDERS Z12.31 EDGAR Pretty MAMMOGRAM FOR MALIGNANT NEOPLASM OF [place]ILTON COMPARISON: None. TECHNIQUE: Dual-Energy X-ray Absorptiometry (DEXA) of the AP Spine and Hip. LIMITATIONS: None. FINDINGS: LUMBAR SPINE: The bone mineral density (BMD) measured from L1-L4 in the AP projection correlates with a T-score of -4.3, which is osteoporosis as defined by the World Health Organization. HIP: The bone mineral density (BMD) measured in the left hip correlates with a T-score of -2.5, which is o steoporosis as defined by the World Health Organization. IMPRESSION: 1. LUMBAR SPINE: OSTEOPOROSIS. 2. HIP: OSTEOPOROSIS. COMMENT: The World Health Organization defines low BMD as follows: T-score: Normal: Greater than -1.0 Osteopenia: Between -1.0 and -2.5 Osteoporosis: Less than -2.5 without fractures Established osteoporosis: Less than -2.5 with fractures In general, you may wish to consider: Diagnosis Treatment Follow-up DEXA Normal BMD Prevention 2-3 years Osteopenia Prevention/Therapy 1-2 years Osteoporosis Therapy Yearly TECHNICAL DOCUMENTATION: JOB ID: [id number] 2010 [employer]- All Rights Reserved Reading location - IP/workstation name: [email or web address]
--- NOTE | 2020-07-14 12:30 | WOMENS IMAGING REPORT ---
EXAM DESCRIPTION: 3D SCREENING MAMMO BILAT IMAGES COMPLETED DATE/TIME: 07/14/2020 12:07 pm REASON FOR STUDY: Z12.31 ENCOUNTER FOR SCREENING MAMMOGRAM FOR MALIGNANT NEOPLASM OF BREAST Z12.31 ENCNTR SCREEN MAMMOGRAM FOR MALIGNANT NEOPLASM OF [place]ILTON COMPARISON: 08/01/2017 and 06/20/2016. EXAM PARAMETERS: Standard craniocaudal and mediolateral oblique views of each breast recorded using digital acquisition and breast tomosynthesis. Read with the assistance of CAD. .[facility] - R2 Product Management Intern Version 9.2 LIMITATIONS: None. FINDINGS: RIGHT BREAST MASSES: No suspicious masses. CALCIFICATIONS: No new or suspicious calcifications. ARCHITECTURAL DISTORTION: None. ASYMMETRY: None noted. OTHER: No other significant findings. LEFT BREAST MASSES: New circumscribed mass in the inferolateral breast, located 6 to 7 cm from the nipple. CALCIFICATIONS: No new or suspicious calcifications. ARCHITECTURAL DISTORTION: None. ASYMMETRY: None noted. OTHER: No other significant findings. IMPRESSION: New circumscribed mass in the inferolateral left breast. Stable mammographic appearance of the right breast. 0 Incomplete: Needs Additional Imaging Evaluation and/or prior Mammograms for Comparison. BREAST DENSITY: b. There are scattered areas of fibroglandular density. BIRAD: ASSESSMENT: 0 Incomplete: Needs Additional Imaging Evaluation and/or prior Mammograms for C omparison. RECOMMENDATION: RECOMMENDED FOLLOW-UP: Recommend additional evaluation with ultrasound of the left b reast. Recommend routine screening mammography of the right breast. The patient will be contacted for additional imaging. COMMENT: The patient has been notified of the results by letter per [place] requirements. Additional no tification policies are in place for contacting patient with suspicious or incomplete findings. Quality ID #225: The [employer] recommends an annual screening mammogram for women aged 40 years or over. This facility utilizes a reminder system to ensure that all patients receive reminder letters, and/or direct phone calls for appointments. This includes reminders for routine scr eening mammograms, diagnostic mammograms, or other Breast Imaging Interventions when appropriate. Th is patient will be placed in the appropriate reminder system. TECHNICAL DOCUMENTATION: FINDING NUMBER: (1) ASSESSMENT: (1) JOB ID: [id number] 2010 [employer]- All Rights Reserved Reading location - IP/workstation name: [email or web address]
== END ==
LOC: WI 11:12
PROVIDERS: ATTEND Obstetrics & Gynecology
DX: Z12.31 Encounter for screening mammogram for malignant neoplasm of breast (principal); N63.20 Unspecified lump in the left breast, unspecified quadrant; M81.0 Age-related osteoporosis without current pathological fracture; N95.8 Other specified menopausal and perimenopausal disorders
CPT/HCPCS: 77063; 77067; 77080

== ENCOUNTER → 2020-07-28 | Outpatient (CLI) | payer OTHER ==
--- NOTE | 2020-07-28 13:36 | WOMENS IMAGING REPORT ---
EXAM DESCRIPTION: U/S BREAST UNILAT LIMITED IMAGES COMPLETED DATE/TIME: 07/28/2020 12:35 pm REASON FOR STUDY: R92.2 INCONCLUSIVE MAMMOGRAM R92.2 INCONCLUSIVE MAMMOGRAM COMPARISON: Mammogram 07/14/2020 TECHNIQUE: Real-time and static grayscale imaging performed of the left breast targeted to the area of clinical/mammographic concern. Selected color Doppler images recorded. LIMITATIONS: None. FINDINGS: 5 mm cluster of cysts in the 4- 5 o'clock position. Uncertain if this is the mammographic correlate. IMPRESSION: Probable benign cluster of cysts. BIRAD: 3 Probably benign finding. Initial short-interval follow-up suggested. RECOMMENDATION: RECOMMENDED FOLLOW-UP: 6 month follow-up diagnostic mammogram and potential ultrasou nd left breast. COMMENT: The [employer] (ACR) has developed recommendations for screening MRI of the breasts in certain patient populations, to be used in conjunction with mammography. Breast MRI s urveillance may be appropriate for women with more than 20% lifetime risk of developing breast cancer as determined by genetic testing, significant family history of the disease, or history of mantle r adiation for Hodgkins Disease. ACR Practice Guidelines 2008. TECHNICAL DOCUMENTATION: JOB ID: [id number] 2010 [employer]- All Rights Reserved Reading location - IP/workstation name: [email or web address]
== END ==
LOC: WI 11:06
PROVIDERS: ATTEND Obstetrics & Gynecology
DX: N60.02 Solitary cyst of left breast (principal)
CPT/HCPCS: 76642

== ENCOUNTER 2020-09-05 00:46 | Emergency (ER) | payer OTHER ==
[2020-09-05] MEDS ORDERED: LEVALBUTEROL HCL NEB 1.25 MG/3 ML AMPUL NEB ONE (01:02)
--- NOTE | 2020-09-05 01:03 | ER Document Report ---
ED Respiratory Problem - General Chief Complaint: Respiratory Distress Stated Complaint: RESPIRATORY DISTRESS Time Seen by Provider: 09/05/20 01:00 Primary Care Provider: ILANA MAGDALENO MD [Primary Care Provider] - Follow up as needed TRAVEL OUTSIDE OF THE [place] IN LAST 30 DAYS: No - HPI Notes: 65-year-old female with past medical history significant for COPD to the emergency department by EMS with complaints of acute shortness of breath with respiratory distress. Apparently patient called EMS after she took some cough medicine and it "went down the wrong way". She states that she did not got acutely short of breath after that. She states that she has been struggling to catch her breath and try to bring up the cough syrup. When medics arrived on scene she was in respiratory distress. They did not swab her for Covid. They gave her 1 DuoNeb and 2 albuterol treatments. They also gave her magnesium and Solu-Medrol. They attempted to place her on CPAP but she would not tolerate it. They put her on 4 L of oxygen and she was able to calm down. Medics report that upon her arrival here she is significantly improved. Patient does have a pertinent past medical history of needing to be intubated for COPD about 8 years ago. She also reports that her niece has been positive for COVID-19. She and the rest of her family were tested a couple days ago but they have not received any information about their testing. She denies any fevers or chills. She denies any chest pain. She denies any ear pain, sore throat, loss of taste or smell. She states that she is trying to quit smoking. She is not on oxygen at home. - Related Data Allergies/Adverse Reactions: No Known Allergies Allergy (Verified 03/04/20 12:23) Past Medical History - General Information source: Patient, Emergency Med Personnel - Social History Smoking Status: Current Every Day Smoker Frequency of alcohol use: None Drug Abuse: None Family History: Reviewed & Not Pertinent - Past Medical History Cardiac Medical History: Reports: Hx Atrial Fibrillation, Hx Heart Attack Denies: Hx Coronary Artery Disease, Hx Hypertension, Hx Pulmonary Embolism Pulmonary Medical History: Reports: Hx Asthma, Hx COPD, Hx Pneumonia Denies: Hx Bronchitis, Hx Respiratory Failure, Hx Sleep Apnea, Hx Tuberculosis Neurological Medical History: Denies: Hx Cerebrovascular Accident, Hx Seizures Endocrine Medical History: Denies: Hx Graves' Disease Renal/ Medical History: Denies: Hx End Stage Renal Disease, Hx Kidney Stones, Hx Ovarian Cysts, Hx Peritoneal Dialysis, Hx Pelvic Inflammatory Disease Malignancy Medical History: Reports: Hx Colorectal Cancer. Denies: Hx Breast Cancer, Hx Cervical Cancer, Hx Lung Cancer, Hx Ovarian Cancer GI Medical History: Reports: Hx Gastroesophageal Reflux Disease, Hx Ulcer. Denies: Hx Crohn's Disease, Hx Hiatal Hernia, Hx Irritable Bowel, Hx Liver Fa ilure, Hx Pancreatitis Musculoskeletal Medical History: Reports Hx Arthritis, Denies Hx Fibromyalgia, Denies Hx Muscular Dystrophy, Denies Hx Systemic Lupus Erythematosus Psychiatric Medical History: Reports: Hx Depression Denies: Hx Bipolar Disorder, Hx Post Traumatic Stress Disorder, Hx Schizophrenia Traumatic Medical History: Denies: Hx Fractures Past Surgical History: Reports: Hx Abdominal Surgery, Hx Cholecystectomy, Hx Gynecologic Surgery - fibroid removal, Hx Hysterectomy, Hx Tubal Ligation, Other - Bowel resection for colon cancer. Denies: Hx Appendectomy, Hx Bowel Surgery, Hx Section, Hx Colostomy, Hx Coronary Artery Bypass Graft, Hx Gastric Bypass Surgery, Hx Herniorrhaphy, Hx Mastectomy, Hx Pacemaker, Hx Tonsillectomy - Immunizations Hx Diphtheria, Pertussis, Tetanus Vaccination: Yes Physical Exam - Vital signs Vitals: Pulse Ox 95 09/05/20 00:48 Course - Re-evaluation Re-evalutation: 09/05/20 Rounded on patient, she is improved. Much more alert and interactive. We will continue to monitor her. Her HR goes down to 103, oxygen levels remain 97 % on Room air Rounded on patient, she is a little more agitated, asking for her morning meds -- spiriva and symbicort plus her breathing treatment. Reausculation reveals improved air movement with persistent expiratory wheezes. We will plan to challenge her with ambulation and see how she does. 09/05/20 06:18 We ambulated the patient. She did not drop her oxygenation level. She did get little bit winded and tachycardic. She states this is her normal baseline at home. She states she feels a lot better. She thinks what led to her respiratory distress was when she accidentally swallowed cough syrup wrong. We have talked about keeping her longer in the emergency department but she is requesting to be discharged. She states that if she gets worse she would like to come home. I discussed this with my ER attending, Dr. Allen, and he agrees with the plan. Impression: COPD exacerbation. Patient has significantly improved since she first arrived. I talked to her about possible admission but she states that she does not want to stay. When she ambulates she does become more tachycardic and winded but she does not drop her oxygen levels. She states that she would like to go home and if she gets worse she will come back. I have encouraged her to follow-up with her activities counselor and primary care physician. - Vital Signs Vital signs: Temp Pulse Resp BP Pulse Ox 98.4 F 100 14 127/86 H 96 09/05/20 01:06 09/05/20 01:06 09/05/20 04:01 09/05/20 04:00 09/05/20 04:01 Temp Pulse Resp BP Pulse Ox 98.9 F 100 17 137/95 H 96 09/05/20 06:23 09/05/20 01:06 09/05/20 06:23 09/05/20 06:23 09/05/20 06:23 Intake & Output 09/03/20 09/04/20 09/05/20 06:59 06:59 06:59 Intake Total 500 Balance 500 Weight 74.843 kg Weight/Height Weight 74.843 kg Height 5 ft 7 in - Laboratory Result Diagrams: 09/05/20 01:35 09/05/20 03:15 Laboratory results interpreted by me: 09/05/20 09/05/20 09/05/20 01:35 01:35 03:15 Hgb 15.7 H Hct 47.3 H RDW 14.5 H Seg Neutrophils % 78.1 H Chloride 109 H Glucose 146 H Lactic Acid 2.5 H - Diagnostic Test Radiology reviewed: Image reviewed, Reports reviewed - EKG Interpretation by Me Additional EKG results interpreted by me: rate: 121 Rhythm: sinus tachycardia Interpretation: No STEMI, low voltage, no significant change from prior on 06/18/20 Discharge - Discharge Clinical Impression: COPD with exacerbation Condition: Stable Disposition: HOME, SELF-CARE Instructions: Chronic Obstructive Lung Disease ([facility]) Additional Instructions: Please follow-up with your primary care physician and activities counselor. Please return immediately if you have any worsening symptoms. Please continue to use your albuterol, Spiriva, Symbicort, prednisone at home. Please quarantine at home until you await the COVID-19 results. As a person under investigation for COVID-19, [place] department of Health and Human Services, division of public health advises you to adhere to the following guidance until your test results are reported to you. If your test result is positive, you will receive additional information from your [facility] and your local health department at that time. Remain at home until you are cleared by the healthcare provider public health authorities. Keep a log of visitors to your home and notify any visitors to your home of your isolation status. If you plan to move to a new address or leave the country, notify the local health department and your County. Call your doctor or seek care if you have an urgent medical need. Before seeking medical care, call ahead to get instructions from the provider before arriving at the medical office, clinic, or hospital. Notify them that you are being tested for the virus that causes COVID-19 so that arrangements can be made, as necessary, to prevent transmission to others in the healthcare setting. Next, notify the local health department and your County. If a medical emergency arises and you need to call 911, informed the first responders that you are being tested for the virus that causes COVID-19. Next, notified the [facility] health department and your County. Prescriptions: Albuterol Sulfate [Ventolin 0.083% Neb 2.5 mg/3 mL Ampul] 1 vial NEB Q4 #100 vial Referrals: ILANA MAGDALENO MD [Primary Care Provider] - Follow up in 1 week TRISHA RANGEL MD [ACTIVE STAFF] - Follow up in 1 week
[2020-09-05 02:05] LABS: ABSOLUTE BASOPHILS # (AUTO) 0.1 10^3/uL (0.0-0.2); ABSOLUTE EOSINOPHILS # (AUTO) 0.1 10^3/uL (0.0-0.6); ABSOLUTE LYMPHOCYTES (AUTO) 1.1 10^3/uL (0.5-4.7); ABSOLUTE MONOCYTES (AUTO) 0.6 10^3/uL (0.1-1.4); ABSOLUTE NEUT (AUTO) 6.5 10^3/uL (1.7-8.2); BASOPHILS % (AUTO) 0.9 % (0-2); EOSINOPHILS % (AUTO) 0.7 % (0-6); HEMATOCRIT 47.3 % (36.0-47.0); HEMOGLOBIN 15.7 g/dL (12.0-15.5); LYMPHOCYTES % (AUTO) 13.2 % (13-45); MEAN CORPUSCULAR HEMOGLOBIN 30.7 pg (27.0-33.4); MEAN CORPUSCULAR HGB CONC 33.2 g/dL (32.0-36.0); MEAN CORPUSCULAR VOLUME 92 fl (80-97); MONOCYTES % (AUTO) 7.1 % (3-13); PLATELET COUNT 277 10^3/uL (150-450); RED BLOOD COUNT 5.11 10^6/uL (3.72-5.28); RED CELL DISTRIBUTION WIDTH 14.5 % (11.5-14.0); SEGMENTED NEUTROPHILS % (AUTO) 78.1 % (42-78); TOTAL CELLS COUNTED % (AUTO) 100 %; WHITE BLOOD COUNT 8.3 10^3/uL (4.0-10.5)
--- NOTE | 2020-09-05 02:13 | RADIOLOGY REPORT (SQ) ---
EXAM: CHEST SINGLE VIEW CLINICAL INDICATION: 65-year-old female with respiratory distress. TECHNIQUE: Single view, AP portable chest was obtained. COMPARISON: 06/17/2020.. FINDINGS: Unremarkable cardiac and mediastinal silhouette. Heart size is normal. Tortuous atherosclerotic thoracic aorta. Lungs are clear without focal opacity, pneumothorax or pleural effusions. The visualized bones are within normal limits. IMPRESSION: No acute cardiopulmonary abnormalities.
[2020-09-05 02:46] LABS: NT PRO BNP 25 pg/mL (<125)
[2020-09-05 02:50] LABS: TROPONIN I < 0.012 ng/mL
[2020-09-05 04:12] LABS: ALBUMIN 4.1 g/dL (3.5-5.0); ALKALINE PHOSPHATASE 94 U/L (38-126); ANION GAP 8 (5-19); ASPARTATE AMINO TRANSFERASE 27 U/L (14-36); BILIRUBIN,DIRECT 0.2 mg/dL (0.0-0.4); BILIRUBIN,TOTAL 0.4 mg/dL (0.2-1.3); BLOOD UREA NITROGEN 9 mg/dL (7-20); CALCIUM 10.2 mg/dL (8.4-10.2); CARBON DIOXIDE 23 mmol/L (22-30); CHLORIDE 109 mmol/L (98-107); GLUCOSE 146 mg/dL (75-110); POTASSIUM 4.7 mmol/L (3.6-5.0); TOTAL PROTEIN 6.9 g/dL (6.3-8.2)
[2020-09-05] MEDS ORDERED: NORMAL SALINE 500 ML IV ONE (04:21)
[2020-09-05] MEDS ORDERED: IPRATROPIUM/ALBUTEROL 0.5-2.5 MG/3 ML AMPUL NEB ONE (05:15)
[2020-09-05] MEDS ORDERED: ALBUTEROL SULFATE 0.083% NEB 2.5 MG/3 ML AMPUL NEB ONE (05:49)
[2020-09-05] MEDS ORDERED: PREDNISONE 10 MG TABLET PO ONE (06:31)
[2020-09-05 06:38] VITALS: BP 137/95
--- NOTE | 2020-09-05 08:36 | EKG REPORT ---
SEVERITY:- OTHERWISE NORMAL ECG - SINUS TACHYCARDIA LOW VOLTAGE IN FRONTAL LEADS : Confirmed by: Danish Hernandez MD 05-Sep-2020 08:35:39
== END 2020-09-05 07:48 | disposition home or self-care (01) ==
LOC: ER 00:46
DX: J44.1 Chronic obstructive pulmonary disease with (acute) exacerbation (principal); R06.03 Acute respiratory distress; R06.02 Shortness of breath; R05 Cough; R00.0 Tachycardia, unspecified; Z20.828 Contact with and (suspected) exposure to other viral communicable diseases; F17.200 Nicotine dependence, unspecified, uncomplicated; I48.91 Unspecified atrial fibrillation; I25.2 Old myocardial infarction; Z79.899 Other long term (current) drug therapy
CPT/HCPCS: 93005; 94640 ×2; 99285; 96360; 36415; 87040; 83605; 85025; 87635; 80053; 84484; 83880; 71045; 93010; J7512; J7040; J7613; J7614; C9803